=== PATIENT | male | born 1935 | race Caucasian/White ===

== ENCOUNTER 2019-10-25 08:49 | Outpatient (CLI) | payer MEDICARE, MEDICAID, SELFPAY ==
--- NOTE | 2019-10-25 08:59 | NM_ITS ---
WS: [id number] NUCLEAR MEDICINE WHOLE BODY BONE SCAN HISTORY: PROSTATE CANCER COMPARISON: 03/30/2018 TECHNIQUE: The patient was injected with 25.4 mCi of Technetium 99m HDP and serial whole-body scintig rodriguez have been performed with anterior and posterior images. Large [id number] imaging over the sku ll, cervical spine and pelvis. New since the prior examination is marked increased uptake involving the RIGHT hip joint. On the CT p erformed on the same day including the pelvis demonstrates narrowing of the RIGHT hip joint with subc hondral cystic changes and near bone upon bone. These findings are consistent with osteoarthritis. Th ere are no findings suggesting metastatic disease to the osseous skeleton. Mild degenerative changes at the knees, wrists and shoulders. Normal soft tissue uptake. Normal appearance of the kidneys. NM/NM bone scan whole body* [id number] IMPRESSION: 1. No osseous metastatic disease. 2. Moderate RIGHT hip joint osteoarthritis. New since 03/30/2018.
--- NOTE | 2019-10-25 09:00 | CT_ITS ---
WS: [id number] CT ABDOMEN AND PELVIS WITH CONTRAST HISTORY: PROSTATE CANCER TECHNIQUE: Imaging performed of the abdomen and pelvis with IV contrast. Single phase imaging of the abdomen. Coronal and sagittal reformats are submitted. All CT scans at [facility] use at least one of these dose optimization techniques: automated exposure control; mA and/or kV adjustment per patient size (includes targeted exams where dose is matched to clinical indication); or iterativ e reconstruction. IV CONTRAST: Visipaque 320; 95 mL IV. Oral contrast: Yes. DLP: 776.69 mGy.cm COMPARISON: 04/05/2018 and 01/04/2018 Lower thorax: Long-term stability of subcentimeter nodules in the medial RIGHT lower lobe. Heart is n ormal size. No hiatal hernia. Liver/biliary system: Numerous cysts throughout the liver ranging in size from 5 mm to 81 mm. No miller d mass. No bile duct dilatation. Portal vein is patent. Gallbladder: Normal. No gallstones or wall thickening. No pericholecystic fluid. Pancreas: Normal. Spleen: Normal. Adrenal glands: Normal. Right kidney: Mild renal atrophy and cortical thinning. Numerous cysts present in the RIGHT kidney wh ich have been previously described. Largest cyst measures 7.2 x 5.6 cm. Additional smaller cortical c ysts with no hydronephrosis. Left kidney: Numerous small cortical cysts. The largest with a maximum diameter of 1.8 cm. Aorta: Mild atherosclerosis with no aneurysm. Lymphadenopathy: None. Free fluid: None. GI tract: No GI tract obstruction. Tortuous colon with fecal retention. Numerous diverticula are pres ent throughout the descending and sigmoid colon without acute diverticulitis. The appendix is normal. Abdominal wall: Unremarkable abdominal wall. No hernia. Pelvis: Nondistended urinary bladder. No adenopathy or free fluid. Bones: L5 anterolisthesis by 8.4 mm due to bilateral pars defects. Severe degenerative disc disease a t L5-S1. No osteoblastic or osteolytic bone disease. Stable sclerotic focus in the proximal RIGHT fem ur is probably a bone island. CT/CT abdomen pelvis w con* [id number] IMPRESSION: 1. No evidence for metastatic disease to the osseous structures or adenopathy. 2. Stable hepatic and renal cysts. 3. Grade 1, L5 anterolisthesis and spondylolysis. 4. Tortuous colon with diverticulosis, no diverticulitis.
[2019-10-25] MEDS: iohexol 300 mg/mL 50 mL Btl IV (09:05)
[2019-10-25 10:30] LABS: Basophils # 0.1 10^3/uL (0.0-0.1); Basophils % 0.6 %; Eosinophils # 0.6 10^3/uL (0.0-0.8); Eosinophils % 4.4 %; Hematocrit 45.1 % (42.0-52.0); Hemoglobin 14.3 g/dL (11.7-16.6); Lymphocytes # 2.4 10^3/uL (0.8-4.8); Lymphocytes % 18.8 %; Mean Corpuscular HGB Conc 31.7 g/dL (30.0-36.0); Mean Corpuscular Hemoglobin 29.5 pg (28.0-34.0); Mean Platelet Volume 10.1 fL (7.4-10.4); Monocytes # 1.1 10^3/uL (0.2-0.9); Monocytes % 8.7 %; Neutrophils # 8.7 10^3/uL (1.8-7.7); Neutrophils % 67.1 %; Nucleated Red Blood Cells % 0 %; Platelet Count 315 10^3/cmm (130-400); Red Blood Count 4.85 10^6/uL (4.1-5.3); Red Cell Distribution Width 12.3 % (12.1-15.1); White Blood Count 12.9 10^3/uL (4.0-10.0)
[2019-10-25 10:50] LABS: Prostate Specific Antigen < 0.02 ng/mL (0-4)
[2019-10-25 11:01] LABS: Alanine Aminotransferase 16 U/L (0-41); Albumin Level 4.6 g/dL (3.5-5.2); Alkaline Phosphatase 126 IU/L (40-130); Anion Gap 15.2 (5-19); Aspartate Amino Transferase 24 U/L (0-40); Blood Urea Nitrogen 38 mg/dL (8-23); Calcium 10.5 mg/Dl (8.8-10.2); Carbon Dioxide 26 mmol/L (22-29); Chloride 103 mmol/L (98-107); Globulin 3.8 g/dL (1.3-4.6); Glucose 119 mg/dL (74-106); Potassium 5.2 mmol/L (3.5-5.1); Sodium 139 mmol/L (136-145); Total Bilirubin 0.3 mg/dL (0.15-1.2); Total Protein 8.4 g/dL (6.6-8.7)
[2019-10-25] MEDS: iodixanol 320 mg/mL 100mL Btl IV (11:08)
== END 2019-10-25 08:50 | disposition home or self-care (01) ==
LOC: RAD 08:50
PROVIDERS: Family Provider Family Medicine; PCP Family Medicine; Visit Provider Nurse Practitioner
DX: C61 Malignant neoplasm of prostate (principal); M16.11 Unilateral primary osteoarthritis, right hip; K76.89 Other specified diseases of liver; N28.1 Cyst of kidney, acquired; M43.06 Spondylolysis, lumbar region; K57.30 Diverticulosis of large intestine without perforation or abscess without bleeding
CPT/HCPCS: 74177; 78306; 80053; 84153; 85025; A9561

== ENCOUNTER 2019-10-30 07:37 | Outpatient (CLI) | payer MEDICARE, MEDICAID, SELFPAY ==
[2019-10-30] MEDS: lidocaine 1% INJ 20 mL 5 ML INJECTION (08:48)
[2019-10-30] MEDS: goserelin acetate 10.8 mg Implant IM (09:00)
--- NOTE | 2019-10-30 14:49 | ONC FU_ITS ---
Dr. Hickey follow up note Patient: Gabino Howell Unit #: [id number]: 1935 Dicatated By: Jerson Hickey M.D.Date of Visit:Oct 30, 2019 Onc Med Follow-up/Prog Note History of Present Illness: Mr. Howell is an 83-year-old gentleman who was noted to have a PSA of 8 in May 2017. He underwent observation. However by September 2017 it had gone up to 37. He had a TRUSP/biopsy on 09/23/2017. 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 At that time left external iliac lymph nodes measuring 2.4 x 2.9 x 3.7 cm, left retroperitoneal lymph nodes just inferior to the left renal artery measuring 1.5 cm and lymph nodes posterior to the descending thoracic aorta measuring 1.8 x 0.9 x 2.6 cm as well as several retrocrural lymph nodes measuring up to 1 cm were noted. There was no evidence of lytic or blastic bony destruction lesions at that time. He started androgen deprivation therapy Dr. Henao in December 2017. His PSA at that time a 61.8. He tolerated the androgen deprivation therapy With Zoladex/Casodex well and had a good response and that his PSA had dropped to 0.5. Repeat CT of the abdomen/pelvis on 04/05/2018 revealed resolution or significant shrinkage of the periaortic, retroperitoneal and pelvic lymphadenopathy. Bone scan in March 2018 also showed no evidence of bony metastatic disease. In March 2018, Mr. Howell was seen by Dr. Vaughn for urinary frequency hesitancy and nocturia ???3 with an AUA symptom score of 10. He did denied dysuria, hematuria weak stream or incontinence. And his bowels were regular at that time. It was elected that he remain on observation as he has stage IV disease and radiation therapy would be consider palliative. He is tolerating ADT with Zoladex/Casodex well otherwise. Follow-up CT scan of abdomen pelvis done on 10/25/2019 showed no evidence of metastatic disease in the bones or lymphadenopathy. Stable hepatic and renal cysts.. Bone scan done on 10/25/2019 showed no osseous metastatic disease. Moderate right hip joint osteoarthritis, new since 03/30/2018. Came for follow-up, denies any specific complaint except pain in the right hip more with the movements otherwise no lower extremity numbness or weakness. No hematuria or dysuria. No new bony pains. Hot flashes improves with discontinue Casodex. Otherwise tolerating Zoladex well . Medications: Aspir-81 1 (81 mg) Tablet, enteric coated Oral daily, Atorvastatin Calcium 1 (80 mg) Tablet Oral daily, Finasteride 1 (5 mg) Tablet Oral daily, Losartan Potassium 1 (100 mg) Tablet Oral daily, Metoprolol Tartrate 1 (25 mg) Tablet Oral daily, Norvasc 1 (10 mg) Tablet Oral daily, ProAir HFA 2 Puff(s) (of 108 (90 base) mcg/act) Aerosol, solution Inhalation q 4 hours PRN, Stool Softener 1 (100 mg) Tablet Oral daily, Tamsulosin HCl 1 (0.4 mg) Capsule Oral daily Allergies: No Known Allergies. Review of Systems: Constitutional - His energy level is poor. Appetite is good and weight is stable. No fever, chills, hot flashes, or night sweats, ENMT - No sinus congestion/drainage. No mouth sores. No sore throat or difficulty swallowing, Hematologic/Lymphatic - No abnormal bruising or bleeding, Respiratory - He has shortness of breath with activity. No cough. No pleuritic pain, Cardiovascular - No angina pain, Gastrointestinal - No nausea or vomiting. No heartburn or acid reflux. No diarrhea or constipation. No blood in the stool or black stools, Genitourinary (M) - No dysuria or hematuria. No urinary frequency. No urgency or incontinence, Musculoskeletal - Positive for right leg pain, Neurologic - No headache or dizziness. No numbness/paresthesias or other focal neurologic symptoms, Psychiatric - No anxiety or depression. No insomnia. Vital Signs: Performed on Oct 30, 2019 08:17 Height - 66.00 in Weight - 173.0 lbs (LOW) BSA - 1.88 sq.m BMI - 27.92 Temperature - 97.1 F (LOW) Pulse - 67 /min Respiration - 18 /min BP - 119/66 mm(hg) O2 Sat - 98 % Pain - 8 Performance Status: 1 - No physically strenuous activity, but ambulatory and able to carry out light or sedentary work (e.g. office work, light house work). (ECOG) Physical Examination: ENMT - r. No oral exudates, ulcers, masses, thrush or mucositis. Oropharynx clear. Tongue normal, Respiratory - Lungs are clear to auscultation without rhonchi or wheezing, Cardiovascular - Regular rate and rhythm of heart, Abdomen - Non-tender, non-distended, Good bowel sounds. No guarding or rebound tenderness. No pulsatile masses, Extremities - no edema. Lab/Imaging: Test performed on Oct 25, 2019 09:25 Glucose 119 mg/dL BUN 38 mg/dL Creatinine 1.7 mg/dL Cr Clearance (Est) 36.48 mL/min Sodium 139 mmol/L Potassium 5.2 mmol/L Chloride 103 mmol/L CO2 26 mmol/L Calcium 10.5 mg/dL Protein, Total 8.4 g/dL Albumin 4.6 g/dL Globulin 3.8 g/dL Bilirubin, Total 0.3 mg/dL Alkaline Phosphatase 126 IU/L AST (SGOT) 24 IU/L ALT (SGPT) 16 IU/L WBC 12.9 10^9/L RBC 4.85 10^12/L HGB 14.3 g/dL HCT 45.1 % MCV 93.0 fl MCH 29.5 pg MCHC 31.7 g/dL RDW 12.3 % Platelet Count 315 10^9/L MPV 10.1 fL Neutrophils (Gran) 8.7 10^9/L Lymphocytes 2.4 10^9/L Monocytes 1.1 10^9/L Eosinophils 0.6 10^9/L Basophils 0.1 10^9/L Neutrophil % 67.1 % Lymphocyte % 18.8 % Manual Lymphocytes 18.8 % Manual Monocytes 8.7 % Monocyte % 8.7 % Manual Eosinophils 4.4 % Basophils % 0.6 % Manual Basophils 0.6 % NRBCs 0.0 /100 WBC PSA 0.02 ng/mL Impression: Adenocarcinoma the prostate 3+3/3+4 Miranda per prostrate needle biopsy done on 09/23/2017. Initially no treatment was considered but his PSA continued to go up, to 61 then patient agreed for staging workup underwent CT scan of abdomen pelvis on 01/04/2018 which showed mild prostate gland enlargement, left external iliac lymphadenopathy 2.4 x 2.9 x 3.7 cm and left retroperitoneal lymph node 1.5 cm and other retroperitoneal lymph nodes size 1.8 x 2.6 x 0.9 cm and the left retrocrural lymph node several in number up to 1 cm no lytic or blastic bone lesion seen. Started on Zoladex 10.8 mg , first dose given in Dr. 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 Howell was seen by Dr. Vaughn for urinary frequency hesitancy and nocturia ???3 with an AUA symptom score of 10. He did denied dysuria, hematuria weak stream or incontinence. And his bowels were regular at that time. It was elected that he remain on observation as he has stage IV disease and radiation therapy would be consider palliative. Mr. Howell continues with androgen deprivation therapy with Casodex and Zoladex. There has been no evidence of disease progression. Plan: Discussed with patient regarding his labs white blood count 12.9 hemoglobin 14.3 crit 45.1 platelets 315,000 CMP within normal limits except creatinine 1.7 PSA 0.02 Clinically, patient is doing well with no evidence of disease progression, his follow-up CT scan of abdomen pelvis and bone scan showed no evidence of disease in the PSA is stable at 0.02. Tolerating ADT with Zoladex well and he is off Casodex. We will proceed with next dose of Zoladex today and return to clinic in 3 months with PSA and for Zoladex injection. Right hip pain, patient will discuss with his primary care regarding referred to orthopedics for evaluation as his bone scan showed moderate osteoarthritis involving the right hip. Signed By: Jerson Hickey M.D. <<Signature on File>>
== END 2019-10-30 07:38 | disposition home or self-care (01) ==
LOC: ONCMED 07:41
PROVIDERS: Family Provider Family Medicine; PCP Family Medicine; Visit Provider Internal Medicine Hematology & Oncology
DX: C61 Malignant neoplasm of prostate (principal); M16.11 Unilateral primary osteoarthritis, right hip; Z79.82 Long term (current) use of aspirin; G89.29 Other chronic pain; M54.9 Dorsalgia, unspecified; Z79.818 Long term (current) use of other agents affecting estrogen receptors and estrogen levels; Z79.899 Other long term (current) drug therapy
CPT/HCPCS: 96372; 96402; 99214; J2001; J9202

== ENCOUNTER → 2019-11-30 11:30 | Outpatient (BNVA) | payer MEDICARE, MEDICAID, SELFPAY | PROVIDERS: Family Provider Family Medicine; PCP Family Medicine; Referring Provider Family Medicine; Visit Provider Orthopaedic Surgery | DX: M16.11 Unilateral primary osteoarthritis, right hip (principal); M25.551 Pain in right hip | CPT/HCPCS: 73502 ==

== ENCOUNTER 2020-01-25 08:00 | Outpatient (CLI) | payer MEDICARE, MEDICAID, SELFPAY ==
[2020-01-25 11:28] LABS: Prostate Specific Antigen < 0.02 ng/mL (0-4)
== END 2020-01-25 09:00 | disposition home or self-care (01) ==
LOC: ONCMED 05-28 15:33
PROVIDERS: PCP Family Medicine; Visit Provider Internal Medicine Hematology & Oncology
DX: C61 Malignant neoplasm of prostate (principal)
CPT/HCPCS: 36415; 84153

== ENCOUNTER 2020-01-29 09:03 | Outpatient (CLI) | payer MEDICARE, MEDICAID, SELFPAY ==
[2020-01-29] MEDS: lidocaine 1% INJ 20 mL INJECTION (09:45)
[2020-01-29] MEDS: goserelin acetate 10.8 mg Implant IM (09:55)
--- NOTE | 2020-01-29 17:43 | ONC FU_ITS ---
Dr. Hickey follow up note Patient: Gabino Howell Unit #: [id number]: 1935 Dicatated By: Jerson Hickey M.D.Date of Visit:Jan 29, 2020 Onc Med Follow-up/Prog Note History of Present Illness: Mr. Howell is an 84-year-old gentleman who was noted to have a PSA of 8 in May 2017. He underwent observation. However by September 2017 it had gone up to 37. He had a TRUSP/biopsy on 09/23/2017. 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 At that time left external iliac lymph nodes measuring 2.4 x 2.9 x 3.7 cm, left retroperitoneal lymph nodes just inferior to the left renal artery measuring 1.5 cm and lymph nodes posterior to the descending thoracic aorta measuring 1.8 x 0.9 x 2.6 cm as well as several retrocrural lymph nodes measuring up to 1 cm were noted. There was no evidence of lytic or blastic bony destruction lesions at that time. He started androgen deprivation therapy Dr. Henao in December 2017. His PSA at that time a 61.8. He tolerated the androgen deprivation therapy With Zoladex/Casodex well and had a good response and that his PSA had dropped to 0.5. Repeat CT of the abdomen/pelvis on 04/05/2018 revealed resolution or significant shrinkage of the periaortic, retroperitoneal and pelvic lymphadenopathy. Bone scan in March 2018 also showed no evidence of bony metastatic disease. In March 2018, Mr. Howell was seen by Dr. Vaughn for urinary frequency hesitancy and nocturia ???3 with an AUA symptom score of 10. He did denied dysuria, hematuria weak stream or incontinence. And his bowels were regular at that time. It was elected that he remain on observation as he has stage IV disease and radiation therapy would be consider palliative. He is tolerating ADT with Zoladex/Casodex well otherwise. Follow-up CT scan of abdomen pelvis done on 10/25/2019 showed no evidence of metastatic disease in the bones or lymphadenopathy. Stable hepatic and renal cysts.. Bone scan done on 10/25/2019 showed no osseous metastatic disease. Moderate right hip joint osteoarthritis, new since 03/30/2018. Came for follow-up, denies any specific complaints, except chronic right hip pain due to severe osteoarthritis involving the right hip. No fever or chills, no nausea or vomiting, no diarrhea constipation, no night sweats. . Medications: Aspir-81 1 (81 mg) Tablet, enteric coated Oral daily, Atorvastatin Calcium 1 (80 mg) Tablet Oral daily, Finasteride 1 (5 mg) Tablet Oral daily, HYDROcodone-Acetaminophen 1 Tablet (of 10-325 mg) Oral q 8 hours PRN, Losartan Potassium 1 (100 mg) Tablet Oral daily, Metoprolol Tartrate 1 (25 mg) Tablet Oral daily, Norvasc 1 (10 mg) Tablet Oral daily, ProAir HFA 2 Puff(s) (of 108 (90 base) mcg/act) Aerosol, solution Inhalation q 4 hours PRN, Stool Softener 1 (100 mg) Tablet Oral daily, Tamsulosin HCl 1 (0.4 mg) Capsule Oral daily Allergies: No Known Allergies. Review of Systems: Constitutional - His energy level is poor. Appetite is good and weight is stable. No fever, chills, hot flashes, or night sweats, ENMT - No sinus congestion/drainage. No mouth sores. No sore throat or difficulty swallowing, Hematologic/Lymphatic - No abnormal bruising or bleeding, Respiratory - Denies shortness of breath. No cough. No pleuritic pain, Cardiovascular - No angina pain, Gastrointestinal - No nausea or vomiting. No heartburn or acid reflux. No diarrhea or constipation. No blood in the stool or black stools, Genitourinary (M) - No dysuria or hematuria. No urinary frequency. No urgency or incontinence, Musculoskeletal - Positive for hip pain, Neurologic - No headache or dizziness. No numbness/paresthesias or other focal neurologic symptoms, Psychiatric - No anxiety or depression. No insomnia. Vital Signs: Performed on Jan 29, 2020 09:12 Height - 66.00 in Weight - 173.6 lbs (HIGH) BSA - 1.88 sq.m BMI - 28.02 Temperature - 97.0 F (LOW) Pulse - 70 /min Respiration - 18 /min BP - 140/76 mm(hg) O2 Sat - 96 % Pain - 10 Performance Status: 1 - No physically strenuous activity, but ambulatory and able to carry out light or sedentary work (e.g. office work, light house work). (ECOG) Physical Examination: ENMT - no mouth sores, Respiratory - Lungs are clear to auscultation, Cardiovascular - Regular rate and rhythm of heart, Abdomen - bowel sounds present, nontender, Extremities - no visible edema. Lab/Imaging: Test performed on Oct 25, 2019 09:25 Glucose 119 mg/dL BUN 38 mg/dL Creatinine 1.7 mg/dL Cr Clearance (Est) 36.48 mL/min Sodium 139 mmol/L Potassium 5.2 mmol/L Chloride 103 mmol/L CO2 26 mmol/L Calcium 10.5 mg/dL Protein, Total 8.4 g/dL Albumin 4.6 g/dL Globulin 3.8 g/dL Bilirubin, Total 0.3 mg/dL Alkaline Phosphatase 126 IU/L AST (SGOT) 24 IU/L ALT (SGPT) 16 IU/L WBC 12.9 10^9/L RBC 4.85 10^12/L HGB 14.3 g/dL HCT 45.1 % MCV 93.0 fl MCH 29.5 pg MCHC 31.7 g/dL RDW 12.3 % Platelet Count 315 10^9/L MPV 10.1 fL Neutrophils (Gran) 8.7 10^9/L Lymphocytes 2.4 10^9/L Monocytes 1.1 10^9/L Eosinophils 0.6 10^9/L Basophils 0.1 10^9/L Neutrophil % 67.1 % Lymphocyte % 18.8 % Manual Lymphocytes 18.8 % Manual Monocytes 8.7 % Monocyte % 8.7 % Manual Eosinophils 4.4 % Basophils % 0.6 % Manual Basophils 0.6 % NRBCs 0.0 /100 WBC PSA 0.02 ng/mL Impression: Adenocarcinoma the prostate 3+3/3+4 Miranda per prostrate needle biopsy done on 09/23/2017. Initially no treatment was considered but his PSA continued to go up, to 61 then patient agreed for staging workup underwent CT scan of abdomen pelvis on 01/04/2018 which showed mild prostate gland enlargement, left external iliac lymphadenopathy 2.4 x 2.9 x 3.7 cm and left retroperitoneal lymph node 1.5 cm and other retroperitoneal lymph nodes size 1.8 x 2.6 x 0.9 cm and the left retrocrural lymph node several in number up to 1 cm no lytic or blastic bone lesion seen. Started on Zoladex 10.8 mg , first dose given in Dr. 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 Howell was seen by Dr. Vaughn for urinary frequency hesitancy and nocturia ???3 with an AUA symptom score of 10. He did denied dysuria, hematuria weak stream or incontinence. And his bowels were regular at that time. It was elected that he remain on observation as he has stage IV disease and radiation therapy would be consider palliative. Mr. Howell continues with androgen deprivation therapy with Casodex and Zoladex. There has been no evidence of disease progression. Plan: Discussed with patient regarding his labs PSA is less than 0.02 Clinically, patient doing well with no signs symptoms suggestive of recurrence of disease his follow-up lab shows PSA is less than 0.02 and is tolerating Zoladex well we'll proceed with next 3 monthly dose of Zoladex today and then return to clinic in 3 months with PSA and next dose of Zoladex. Signed By: Jerson Hickey M.D. <<Signature on File>>
== END 2020-01-29 09:04 | disposition home or self-care (01) ==
LOC: ONCMED 09:03
PROVIDERS: Family Provider Family Medicine; PCP Family Medicine; Visit Provider Internal Medicine Hematology & Oncology
DX: C61 Malignant neoplasm of prostate (principal); M16.11 Unilateral primary osteoarthritis, right hip; G89.29 Other chronic pain; M54.9 Dorsalgia, unspecified; G62.9 Polyneuropathy, unspecified; Z79.818 Long term (current) use of other agents affecting estrogen receptors and estrogen levels; Z79.899 Other long term (current) drug therapy; Z79.82 Long term (current) use of aspirin; Z79.891 Long term (current) use of opiate analgesic
CPT/HCPCS: 96372; 96402; 99214; J2001; J9202

== ENCOUNTER 2020-04-26 07:00 | Outpatient (CLI) | payer MEDICARE, MEDICAID, SELFPAY ==
[2020-04-26 08:19] LABS: Prostate Specific Antigen 0.007 ng/mL (0-4)
== END 2020-04-26 07:01 | disposition home or self-care (01) ==
LOC: ONCMED 07:02
PROVIDERS: PCP Family Medicine; Visit Provider Internal Medicine Hematology & Oncology
DX: C61 Malignant neoplasm of prostate (principal)
CPT/HCPCS: 84153

== ENCOUNTER 2020-04-29 14:45 | Outpatient (CLI) | payer MEDICARE, MEDICAID, SELFPAY ==
--- NOTE | 2020-04-29 15:16 | ONC FU_ITS ---
Dr. Hickey follow up note Patient: Gabino Howell Unit #: [id number]: 1935 Dicatated By: Jerson Hickey M.D.Date of Visit:Apr 29, 2020 Onc Med Follow-up/Prog Note History of Present Illness: Mr. Howlel is an 84-year-old gentleman who was noted to have a PSA of 8 in May 2017. He underwent observation. However by September 2017 it had gone up to 37. He had a TRUSP/biopsy on 09/23/2017. 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 At that time left external iliac lymph nodes measuring 2.4 x 2.9 x 3.7 cm, left retroperitoneal lymph nodes just inferior to the left renal artery measuring 1.5 cm and lymph nodes posterior to the descending thoracic aorta measuring 1.8 x 0.9 x 2.6 cm as well as several retrocrural lymph nodes measuring up to 1 cm were noted. There was no evidence of lytic or blastic bony destruction lesions at that time. He started androgen deprivation therapy Dr. Henao in December 2017. His PSA at that time a 61.8. He tolerated the androgen deprivation therapy With Zoladex/Casodex well and had a good response and that his PSA had dropped to 0.5. Repeat CT of the abdomen/pelvis on 04/05/2018 revealed resolution or significant shrinkage of the periaortic, retroperitoneal and pelvic lymphadenopathy. Bone scan in March 2018 also showed no evidence of bony metastatic disease. In March 2018, Mr. Howell was seen by Dr. Vaughn for urinary frequency hesitancy and nocturia ???3 with an AUA symptom score of 10. He did denied dysuria, hematuria weak stream or incontinence. And his bowels were regular at that time. It was elected that he remain on observation as he has stage IV disease and radiation therapy would be consider palliative. He is tolerating ADT with Zoladex/Casodex well otherwise. Follow-up CT scan of abdomen pelvis done on 10/25/2019 showed no evidence of metastatic disease in the bones or lymphadenopathy. Stable hepatic and renal cysts.. Bone scan done on 10/25/2019 showed no osseous metastatic disease. Moderate right hip joint osteoarthritis, new since 03/30/2018. Came for follow-up, denies any specific complaints, no fever chills, no nausea vomiting, no diarrhea constipation, no night sweats or hot flashes, no dysuria or hematuria, tolerating Zoladex well . Medications: Aspir-81 1 (81 mg) Tablet, enteric coated Oral daily, Atorvastatin Calcium 1 (80 mg) Tablet Oral daily, Finasteride 1 (5 mg) Tablet Oral daily, HYDROcodone-Acetaminophen 1 Tablet (of 10-325 mg) Oral q 8 hours PRN, Losartan Potassium 1 (100 mg) Tablet Oral daily, Metoprolol Tartrate 1 (25 mg) Tablet Oral daily, Norvasc 1 (10 mg) Tablet Oral daily, ProAir HFA 2 Puff(s) (of 108 (90 base) mcg/act) Aerosol, solution Inhalation q 4 hours PRN, Stool Softener 1 (100 mg) Tablet Oral daily, Tamsulosin HCl 1 (0.4 mg) Capsule Oral daily Allergies: No Known Allergies. Review of Systems: Review of Systems is not available for this patient. Vital Signs: Performed on Apr 29, 2020 14:55 Height - 66.00 in Weight - 171.0 lbs (LOW) BSA - 1.87 sq.m BMI - 27.60 Temperature - 97.1 F (LOW) Pulse - 61 /min Respiration - 22 /min BP - 119/65 mm(hg) O2 Sat - 98 % Pain - 0 Performance Status: 0 - Fully active, able to carry on all predisease activities without restrictions. (ECOG) Physical Examination: ENMT - No mouth sores, no thrush, Respiratory - Lungs are clear, Cardiovascular - Regular rate and rhythm of heart, Abdomen - Soft, bowel sounds present, Extremities - No visible edema. Lab/Imaging: Test performed on Jan 25, 2020 07:20 PSA < 0.02 ng/mL Impression: Adenocarcinoma the prostate 3+3/3+4 [place] per prostrate needle biopsy done on 09/23/2017. Initially no treatment was considered but his PSA continued to go up, to 61 then patient agreed for staging workup underwent CT scan of abdomen pelvis on 01/04/2018 which showed mild prostate gland enlargement, left external iliac lymphadenopathy 2.4 x 2.9 x 3.7 cm and left retroperitoneal lymph node 1.5 cm and other retroperitoneal lymph nodes size 1.8 x 2.6 x 0.9 cm and the left retrocrural lymph node several in number up to 1 cm no lytic or blastic bone lesion seen. Started on Zoladex 10.8 mg , first dose given in Dr. 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 Howell was seen by Dr. Vaughn for urinary frequency hesitancy and nocturia ???3 with an AUA symptom score of 10. He did denied dysuria, hematuria weak stream or incontinence. And his bowels were regular at that time. It was elected that he remain on observation as he has stage IV disease and radiation therapy would be consider palliative. Mr. Howell continues with androgen deprivation therapy with Casodex and Zoladex. There has been no evidence of disease progression. Plan: Discussed with patient regarding his labs PSA is 0.007 Clinically, patient is doing well with no signs symptom suggestive of disease progression/recurrence, tolerating 3 monthly Zoladex well with no significant side effects. We will proceed with next 3 monthly dose of Zoladex today and then return to clinic in 3 months with CBC CMP and PSA Signed By: Jerson Hickey M.D. <<Signature on File>>
[2020-04-29] MEDS: lidocaine 1% INJ 20 mL INJECTION (15:30)
[2020-04-29] MEDS: goserelin acetate 10.8 mg Implant IM (15:40)
== END 2020-04-29 14:46 | disposition home or self-care (01) ==
LOC: ONCMED 14:50
PROVIDERS: PCP Family Medicine; Visit Provider Internal Medicine Hematology & Oncology
DX: C61 Malignant neoplasm of prostate (principal); G89.29 Other chronic pain; M54.9 Dorsalgia, unspecified; G57.93 Unspecified mononeuropathy of bilateral lower limbs; Z79.818 Long term (current) use of other agents affecting estrogen receptors and estrogen levels; Z79.899 Other long term (current) drug therapy
CPT/HCPCS: 96372; 96402; 99214; J9202

== ENCOUNTER 2020-07-26 08:35 | Outpatient (CLI) | payer MEDICARE, MEDICAID, SELFPAY ==
[2020-07-26 08:53] LABS: Basophils # 0.1 10^3/uL (0.0-0.1); Basophils % 0.7 %; Eosinophils # 0.8 10^3/uL (0.0-0.8); Eosinophils % 7.1 %; Hematocrit 40.1 % (42.0-52.0); Hemoglobin 12.5 g/dL (11.7-16.6); Lymphocytes # 2.7 10^3/uL (0.8-4.8); Lymphocytes % 24.5 %; Mean Corpuscular HGB Conc 31.2 g/dL (30.0-36.0); Mean Corpuscular Hemoglobin 29.2 pg (28.0-34.0); Mean Corpuscular Volume 93.7 fL (80-94); Mean Platelet Volume 9.9 fL (7.4-10.4); Monocytes # 1.5 10^3/uL (0.2-0.9); Monocytes % 13.4 %; Neutrophils # 6.03 10^3/uL (1.8-7.7); Neutrophils % 53.9 %; Nucleated Red Blood Cells % 0 %; Platelet Count 263 10^3/cmm (130-400); Red Blood Count 4.28 10^6/uL (4.1-5.3); Red Cell Distribution Width 12.3 % (12.1-15.1); White Blood Count 11.2 10^3/uL (4.0-10.0)
[2020-07-26 09:34] LABS: Prostate Specific Antigen 0.008 ng/mL (0-4)
[2020-07-26 09:37] LABS: Alanine Aminotransferase 19 U/L (0-41); Albumin Level 4.3 g/dL (3.5-5.2); Alkaline Phosphatase 103 IU/L (40-130); Anion Gap 15.3 (5-19); Aspartate Amino Transferase 28 U/L (0-40); Blood Urea Nitrogen 29 mg/dL (8-23); Calcium 9.5 mg/dL (8.5-10.5); Carbon Dioxide 23 mmol/L (22-29); Chloride 103 mmol/L (98-107); Globulin 3.2 g/dL (1.3-4.6); Glucose 122 mg/dL (65-115); Osmolality Calculated 291 mOsm/kg (285-295); Potassium 4.3 mmol/L (3.5-5.1); Sodium 137 mmol/L (136-145); Total Bilirubin 0.4 mg/dL (0.15-1.2); Total Protein 7.5 g/dL (6.6-8.7)
== END 2020-07-26 08:36 | disposition home or self-care (01) ==
LOC: ONCMED 08:37
PROVIDERS: PCP Family Medicine; Visit Provider Internal Medicine Hematology & Oncology
DX: C61 Malignant neoplasm of prostate (principal)
CPT/HCPCS: 36415; 80053; 84153; 85025

== ENCOUNTER 2020-07-30 05:43 | Outpatient (CLI) | payer MEDICARE, MEDICAID, SELFPAY ==
[2020-07-30] MEDS: lidocaine 1% INJ 20 mL INJECTION (14:56)
[2020-07-30] MEDS: goserelin acetate 10.8 mg Implant IM (15:06)
--- NOTE | 2020-07-30 16:39 | ONC FU_ITS ---
[facility] Patient Note Patient: Gabino Howell Unit #: [id number]: 1935 Dictated By: Roxann NailsDate of Visit: Jul 30, 2020 Onc MED Follow-Up/Prog Note Chief Complaint: Prostate cancer History of Present Illness: Mr. Howell is an 85-year-old gentleman who was noted to have a PSA of 8 in May 2017. He underwent observation. However by September 2017 it had gone up to 37. He had a TRUSP/biopsy on 09/23/2017. Pathology revealed adenocarcinoma the prostate in 02/19 and biopsy cores, [place] score 3+4 involving 5%, 40% up to 80% of the specimen area he underwent CT of the abdomen and pelvis on 01/04/2018. At that time left external iliac lymph nodes measuring 2.4 x 2.9 x 3.7 cm, left retroperitoneal lymph nodes just inferior to the left renal artery measuring 1.5 cm and lymph nodes posterior to the descending thoracic aorta measuring 1.8 x 0.9 x 2.6 cm as well as several retrocrural lymph nodes measuring up to 1 cm were noted. There was no evidence of lytic or blastic bony destruction lesions at that time. He started androgen deprivation therapy Dr. Henao in December 2017. His PSA at that time a 61.8. He tolerated the androgen deprivation therapy With Zoladex/Casodex well and had a good response and that his PSA had dropped to 0.5. Repeat CT of the abdomen/pelvis on 04/05/2018 revealed resolution or significant shrinkage of the periaortic, retroperitoneal and pelvic lymphadenopathy. Bone scan in March 2018 also showed no evidence of bony metastatic disease. In March 2018, Mr. Howell was seen by Dr. Vaughn for urinary frequency hesitancy and nocturia ???3 with an AUA symptom score of 10. He did denied dysuria, hematuria weak stream or incontinence. And his bowels were regular at that time. It was elected that he remain on observation as he has stage IV disease and radiation therapy would be consider palliative. He is tolerating ADT with Zoladex/Casodex well otherwise. Follow-up CT scan of abdomen pelvis done on 10/25/2019 showed no evidence of metastatic disease in the bones or lymphadenopathy. Stable hepatic and renal cysts.. Bone scan done on 10/25/2019 showed no osseous metastatic disease. Moderate right hip joint osteoarthritis, new since 03/30/2018. He continues Zoladex every 3 months. Casodex was stopped in January 2019. Mr. Howell Is here today for follow-up. He is due for Zoladex today as well. He states overall he is doing well. He continues to be active around the house. He denies any fever or chills. He has had no known Covid exposure or symptoms or personal testing. He states he feels good. He denies any pain particulate bone pain. He states he does still have problems with his right knee because is fnec-ni-jael means it is no worse than normal. He denies bone pain anywhere else. He states his breathing is good. He denies any wheezing or cough. He denies any diarrhea or constipation. He has no complaints of hot flashes. He denies any lower extremity edema. His ECOG is 0. . Past Medical History: Arteriosclerotic heart disease Hyperlipidemia Hypertension Peripheral vascular disease Past Surgical History: Cardiac stent x2 Allergies: No Known Allergies. Medications: Aspir-81 1 (81 mg) Tablet, enteric coated Oral daily Atorvastatin Calcium 1 (80 mg) Tablet Oral daily Finasteride 1 (5 mg) Tablet Oral daily HYDROcodone-Acetaminophen 1 Tablet (of 10-325 mg) Oral q 8 hours PRN Losartan Potassium 1 (100 mg) Tablet Oral daily Metoprolol Tartrate 1 (25 mg) Tablet Oral daily Norvasc 1 (10 mg) Tablet Oral daily ProAir HFA 2 Puff(s) (of 108 (90 base) mcg/act) Aerosol, solution Inhalation q 4 hours PRN Stool Softener 1 (100 mg) Tablet Oral daily Tamsulosin HCl 1 (0.4 mg) Capsule Oral daily Zoladex 1 Subcutaneous q 90 days Family History: Mr. Howell's mother at age 68: type II diabetes, and myocardial infarction. Mr. Howell's father at age 70: congestive heart failure. Mr. Howell has 1 brother who is : myocardial infarctio. He has 1 sister who is : stomach cancer. Social History: Mr. Howell is and he is retired. Mr. Howell has never smoked. He has no history of drinking. Review Of Symptoms: Constitutional Denies fevers, chills, night sweats, excessive fatigue or weight loss. Allergic/Immunologic No reactions. Eyes Denies significant visual changes. No diplopia. No amaurosis. ENMT Denies changes in hearing, sore throat, mouth sores, difficulty or changes in swallowing ability, and/or sinus drainage. Endocrine No diabetes, thyroid disease or hormone replacement. Denies hot flashes or night sweats. Hematologic/Lymphatic Denies easy bruising or bleeding. The patient denies any tender or palpable lymph nodes. Respiratory Denies dyspnea on exertion, chest pain, cough or hemoptysis. Denies orthopnea. Cardiovascular Denies anginal chest pain, palpitations or orthopnea. Gastrointestinal Denies nausea, vomiting, diarrhea, GI bleeding, or constipation. Denies change in bowel habits and/or stool color, no heartburn or early satiety. Genitourinary (M) Denies hematuria, dysuria, increased frequency, urgency, hesitancy or incontinence. Musculoskeletal Denies new or worsening joint pain, swelling or redness. No decreased range of motion. Chronic knee and hip pain-unchanged. Integumentary Denies chronic rashes, inflammation, ulcerations or skin changes. Neurologic Denies headache, blurred vision, and no areas of focal weakness or numbness. Feet sensitive see above. Psychiatric Denies insomnia, depression, eliot or mood swings. Vital Signs: Performed on Jul 30, 2020 14:38 Height - 66.00 in Weight - 176.8 lbs (HIGH) BSA - 1.90 sq.m BMI - 28.54 Temperature - 97.2 F (LOW) Pulse - 60 /min Respiration - 18 /min BP - 143/73 mm(hg) (HIGH) O2 Sat - 97 % Pain - 8,0 - Fully active, able to carry on all predisease activities without restrictions. (ECOG) Physical Examination: Constitutional Alert, oriented, no acute distress. Skin pink, warm and dry. Head Normocephalic; atraumatic. Eyes Conjunctivae and sclerae are clear and without icterus. Pupils are reactive and equal. Neck Supple without masses or thyromegaly. No jugular venous distension. Hematologic/Lymphatic No petechiae or purpura. No tender or palpable lymph nodes in the cervical or supraclavicular areas. Respiratory Lungs are clear to auscultation without rhonchi or wheezing. Cardiovascular Regular rate and rhythm of heart with soft systolic murmur, but no clicks, gallops or rubs. Abdomen Non-tender, non-distended, no masses. No guarding or rebound tenderness. No pulsatile masses. Back/Spine Non-tender to palpation. Extremities No visible deformities, no cyanosis, clubbing or edema. Musculoskeletal No tenderness or swelling, normal range of motion without obvious weakness. Integumentary No rashes or lesions. Neurologic No sensory or motor deficits, normal cerebellar function, normal gait. Psychiatric Alert and oriented times three. Coherent speech. Verbalizes understanding of our discussions today. Laboratory:Test performed on Apr 26, 2020 07:23 PSA 0.007 ng/mL Impression: Adenocarcinoma the prostate 3+3/3+4 [place] per prostrate needle biopsy done on 09/23/2017. Initially no treatment was considered but his PSA continued to go up, to 61 then patient agreed for staging workup underwent CT scan of abdomen pelvis on 01/04/2018 which showed mild prostate gland enlargement, left external iliac lymphadenopathy 2.4 x 2.9 x 3.7 cm and left retroperitoneal lymph node 1.5 cm and other retroperitoneal lymph nodes size 1.8 x 2.6 x 0.9 cm and the left retrocrural lymph node several in number up to 1 cm no lytic or blastic bone lesion seen. Started on Zoladex 10.8 mg , first dose given in Dr. 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 Howell was seen by Dr. Vaughn for urinary frequency hesitancy and nocturia ???3 with an AUA symptom score of 10. He did denied dysuria, hematuria weak stream or incontinence. And his bowels were regular at that time. It was elected that he remain on observation as he has stage IV disease and radiation therapy would be consider palliative. Mr. Howell continues with androgen deprivation therapy with every 3 month Zoladex. There has been no evidence of disease progression. Plan: 1. Continue Zoladex 10.8 mg every 3 months. 2. Flu vac obtained 06/2020. He also started the shingles vaccine at that time and has another injection for it next month. 3. Labs from 07/26/2020 were reviewed in detail and discussed with Mr. Howell and a copy was given to him. WBC 11.2 hemoglobin 12.5, platelets 263,000 ANC is 6000 potassium 4.3 creatinine 1.2 which is improved from 1.7 in October LFTs are normal and PSA is 0.008. 4. We will plan to see Mr. Howell can back in 3 months with CBC CMP and PSA 5. Mr. Howell was instructed to contact us in the interim should questions or problems arise. Signed By: Roxann Nails-, AOCNP Jerson Hickey MD <<Signature on File>>
== END 2020-07-30 05:44 | disposition home or self-care (01) ==
LOC: ONCMED 05:48
PROVIDERS: PCP Family Medicine; Visit Provider Nurse Practitioner
DX: C61 Malignant neoplasm of prostate (principal); C77.8 Secondary and unspecified malignant neoplasm of lymph nodes of multiple regions; N40.1 Benign prostatic hyperplasia with lower urinary tract symptoms; R35.0 Frequency of micturition; R39.11 Hesitancy of micturition; R35.1 Nocturia; E78.5 Hyperlipidemia, unspecified; I10 Essential (primary) hypertension; I25.10 Atherosclerotic heart disease of native coronary artery without angina pectoris; I73.9 Peripheral vascular disease, unspecified; Z79.818 Long term (current) use of other agents affecting estrogen receptors and estrogen levels; Z79.899 Other long term (current) drug therapy
CPT/HCPCS: 96372; 96402; 99214; J9202

== ENCOUNTER 2020-11-04 10:51 | Outpatient (CLI) | payer MEDICARE, MEDICAID, SELFPAY ==
[2020-11-04 11:19] LABS: Basophils # 0.1 10^3/uL (0.0-0.1); Basophils % 0.8 %; Eosinophils # 0.6 10^3/uL (0.0-0.8); Eosinophils % 4.8 %; Hematocrit 40.9 % (42.0-52.0); Lymphocytes # 3.4 10^3/uL (0.8-4.8); Lymphocytes % 25.5 %; Mean Corpuscular HGB Conc 31.8 g/dL (30.0-36.0); Mean Corpuscular Volume 91.3 fL (80-94); Monocytes # 1.4 10^3/uL (0.2-0.9); Monocytes % 10.3 %; Neutrophils # 7.63 10^3/uL (1.8-7.7); Neutrophils % 57.6 %; Nucleated Red Blood Cells % 0 %; Platelet Count 309 10^3/cmm (130-400); Red Blood Count 4.48 10^6/uL (4.1-5.3); Red Cell Distribution Width 12.2 % (12.1-15.1); White Blood Count 13.2 10^3/uL (4.0-10.0)
[2020-11-04 11:52] LABS: Prostate Specific Antigen 0.017 ng/mL (0-4)
[2020-11-04 12:03] LABS: Alanine Aminotransferase 24 U/L (0-41); Albumin Level 4.4 g/dL (3.5-5.2); Alkaline Phosphatase 112 IU/L (40-130); Anion Gap 17.4 (5-19); Aspartate Amino Transferase 25 U/L (0-40); Blood Urea Nitrogen 35 mg/dL (8-23); Calcium 9.2 mg/dL (8.5-10.5); Carbon Dioxide 23 mmol/L (22-29); Chloride 104 mmol/L (98-107); Glucose 124 mg/dL (65-115); Osmolality Calculated 299 mOsm/kg (285-295); Potassium 4.4 mmol/L (3.5-5.1); Sodium 140 mmol/L (136-145); Total Bilirubin 0.3 mg/dL (0.15-1.2)
[2020-11-04 13:15] LABS: Globulin 3.4 g/dL (1.3-4.6); Total Protein 7.8 g/dL (6.6-8.7)
[2020-11-04] MEDS: lidocaine 1% INJ 20 mL INJECTION (13:15)
[2020-11-04] MEDS: goserelin acetate 10.8 mg Implant IM (13:15)
--- NOTE | 2020-11-04 13:51 | ONC FU_ITS ---
Dr. Hickey follow up note Patient: Gabino Howell Unit #: [id number]: 1935 Dicatated By: Jerson Hickey M.D.Date of Visit:Nov 04, 2020 Onc Med Follow-up/Prog Note History of Present Illness: Mr. Howell is an 85-year-old gentleman who was noted to have a PSA of 8 in May 2017. He underwent observation. However by September 2017 it had gone up to 37. He had a TRUSP/biopsy on 09/23/2017. 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 At that time left external iliac lymph nodes measuring 2.4 x 2.9 x 3.7 cm, left retroperitoneal lymph nodes just inferior to the left renal artery measuring 1.5 cm and lymph nodes posterior to the descending thoracic aorta measuring 1.8 x 0.9 x 2.6 cm as well as several retrocrural lymph nodes measuring up to 1 cm were noted. There was no evidence of lytic or blastic bony destruction lesions at that time. He started androgen deprivation therapy Dr. Henao in December 2017. His PSA at that time a 61.8. He tolerated the androgen deprivation therapy With Zoladex/Casodex well and had a good response and that his PSA had dropped to 0.5. Repeat CT of the abdomen/pelvis on 04/05/2018 revealed resolution or significant shrinkage of the periaortic, retroperitoneal and pelvic lymphadenopathy. Bone scan in March 2018 also showed no evidence of bony metastatic disease. In March 2018, Mr. Howell was seen by Dr. Vaughn for urinary frequency hesitancy and nocturia ???3 with an AUA symptom score of 10. He did denied dysuria, hematuria weak stream or incontinence. And his bowels were regular at that time. It was elected that he remain on observation as he has stage IV disease and radiation therapy would be consider palliative. He is tolerating ADT with Zoladex/Casodex well otherwise. Follow-up CT scan of abdomen pelvis done on 10/25/2019 showed no evidence of metastatic disease in the bones or lymphadenopathy. Stable hepatic and renal cysts.. Bone scan done on 10/25/2019 showed no osseous metastatic disease. Moderate right hip joint osteoarthritis, new since 03/30/2018. He continues Zoladex every 3 months. Casodex was stopped in January 2019. Came for follow-up, denies any specific complaints, no fever chills, no nausea or vomiting, no diarrhea or constipation, no new bony pains occasionally hot flashes otherwise tolerating 3 monthly Zoladex well . Medications: Aspir-81 1 (81 mg) Tablet, enteric coated Oral daily, Atorvastatin Calcium 1 (80 mg) Tablet Oral daily, Finasteride 1 (5 mg) Tablet Oral daily, HYDROcodone-Acetaminophen 1 Tablet (of 10-325 mg) Oral q 8 hours PRN, Losartan Potassium 1 (100 mg) Tablet Oral daily, Metoprolol Tartrate 1 (25 mg) Tablet Oral daily, Norvasc 1 (10 mg) Tablet Oral daily, ProAir HFA 2 Puff(s) (of 108 (90 base) mcg/act) Aerosol, solution Inhalation q 4 hours PRN, Stool Softener 1 (100 mg) Tablet Oral daily, Tamsulosin HCl 1 (0.4 mg) Capsule Oral daily, Zoladex 1 Subcutaneous q 90 days Allergies: No Known Allergies. Review of Systems: Review of Systems is not available for this patient. Vital Signs: Performed on Nov 04, 2020 12:35 Height - 66.00 in Weight - 132.4 lbs (LOW) BSA - 1.68 sq.m BMI - 21.37 Temperature - 96.4 F (LOW) Pulse - 73 /min Respiration - 18 /min BP - 148/79 mm(hg) (HIGH) O2 Sat - 97 % Pain - 0 Fatigue - 0 Performance Status: 1 - No physically strenuous activity, but ambulatory and able to carry out light or sedentary work (e.g. office work, light house work). (ECOG) Physical Examination: ENMT - No mouth sores, no thrush, no jaundice, Respiratory - Lungs are clear to auscultation, Cardiovascular - Regular rate and rhythm of heart, Abdomen - Soft, bowel sounds present, Extremities - No visible edema. Lab/Imaging: Test performed on Jul 26, 2020 08:44 Sodium 137 mmol/L Potassium 4.3 mmol/L Chloride 103 mmol/L CO2 23 mmol/L Anion Gap 15.3 BUN 29 mg/dL Creatinine 1.2 mg/dL Cr Clearance (Est) 51.05 mL/min Glucose 122 mg/dL Osmolality - Calculated 291 mOsm/kg Calcium 9.5 mg/dL Protein, Total 7.5 g/dL Albumin 4.3 g/dL Globulin 3.2 g/dL Bilirubin, Total 0.4 mg/dL ALT (SGPT) 19 U/L AST (SGOT) 28 U/L Alkaline Phosphatase 103 IU/L WBC 11.2 10 3/uL RBC 4.28 10 6/uL HGB 12.5 g/dL HCT 40.1 % MCV 93.7 fL MCH 29.2 pg MCHC 31.2 g/dL RDW 12.3 % Platelet Count 263 10 3/cmm MPV 9.9 fL Neutrophils 6.03 10 3/uL Lymphocytes 2.7 10 3/uL Monocytes 1.5 10 3/uL Eosinophils 0.8 10 3/uL Basophils 0.1 10 3/uL Neutrophil % 53.9 % Lymphocyte % 24.5 % Monocyte % 13.4 % Eosinophil % 7.1 % Basophils % 0.7 % NRBC % 0 % PSA 0.008 ng/mL Impression: Adenocarcinoma the prostate 3+3/3+4 Miranda per prostrate needle biopsy done on 09/23/2017. Initially no treatment was considered but his PSA continued to go up, to 61 then patient agreed for staging workup underwent CT scan of abdomen pelvis on 01/04/2018 which showed mild prostate gland enlargement, left external iliac lymphadenopathy 2.4 x 2.9 x 3.7 cm and left retroperitoneal lymph node 1.5 cm and other retroperitoneal lymph nodes size 1.8 x 2.6 x 0.9 cm and the left retrocrural lymph node several in number up to 1 cm no lytic or blastic bone lesion seen. Started on Zoladex 10.8 mg , first dose given in Dr. 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 Howell was seen by Dr. Vaughn for urinary frequency hesitancy and nocturia ???3 with an AUA symptom score of 10. He did denied dysuria, hematuria weak stream or incontinence. And his bowels were regular at that time. It was elected that he remain on observation as he has stage IV disease and radiation therapy would be consider palliative. Mr. Howell continues with androgen deprivation therapy with every 3 month Zoladex. There has been no evidence of disease progression. Plan: Discussed with patient regarding his labs from November 04, 2020 shows white blood count 13.2 hemoglobin 13 hematocrit 40.9 platelets 301,000 with a normal differentiation CMP within normal limits except glucose 124 PSA 0.017 compared to 0.008 on July 26, 2020 Clinically, patient is doing well with no new signs symptoms suggestive of disease progression but his follow-up labs shows PSA gone up to 0.017 compared to 0.008 previously,. We will proceed with his next 3 monthly dose of Zoladex today As far as mild isolated leukocytosis concern could be reactive, will continue to monitor and if there is a worsening, will consider work-up he will return to clinic in 3 months with CBC CMP PSA and testosterone level Signed By: Jerson Hickey M.D. <<Signature on File>>
== END 2020-11-04 10:52 | disposition home or self-care (01) ==
PROVIDERS: PCP Family Medicine; Visit Provider Internal Medicine Hematology & Oncology
DX: C61 Malignant neoplasm of prostate (principal); D72.829 Elevated white blood cell count, unspecified; Z79.818 Long term (current) use of other agents affecting estrogen receptors and estrogen levels
CPT/HCPCS: 36415; 80053; 84153; 85025; 96402; 99214; J9202

== ENCOUNTER 2021-02-05 11:24 | Outpatient (CLI) | payer MEDICARE, MEDICAID, SELFPAY ==
[2021-02-05 12:16] LABS: Basophils # 0.1 10^3/uL (0.0-0.1); Basophils % 0.8 %; Eosinophils # 0.7 10^3/uL (0.0-0.8); Hematocrit 40.9 % (42.0-52.0); Lymphocytes # 3.6 10^3/uL (0.8-4.8); Lymphocytes % 26.9 %; Mean Corpuscular HGB Conc 31.8 g/dL (30.0-36.0); Mean Corpuscular Volume 91.3 fL (80-94); Mean Platelet Volume 10.4 fL (7.4-10.4); Monocytes # 1.3 10^3/uL (0.2-0.9); Monocytes % 9.5 %; Neutrophils # 7.56 10^3/uL (1.8-7.7); Neutrophils % 57.1 %; Nucleated Red Blood Cells % 0 %; Platelet Count 276 10^3/cmm (130-400); Red Blood Count 4.48 10^6/uL (4.1-5.3); Red Cell Distribution Width 12.2 % (12.1-15.1); White Blood Count 13.3 10^3/uL (4.0-10.0)
[2021-02-05 12:46] LABS: Prostate Specific Antigen 0.034 ng/mL (0-4); Testosterone Total 2.5 ng/dL (193-740)
[2021-02-05 12:58] LABS: Alanine Aminotransferase 15 U/L (0-41); Albumin Level 4.4 g/dL (3.5-5.2); Alkaline Phosphatase 106 IU/L (40-130); Anion Gap 15.3 (5-19); Aspartate Amino Transferase 24 U/L (0-40); Blood Urea Nitrogen 21 mg/dL (8-23); Calcium 8.9 mg/dL (8.5-10.5); Carbon Dioxide 24 mmol/L (22-29); Chloride 105 mmol/L (98-107); Glucose 99 mg/dL (65-115); Osmolality Calculated 293 mOsm/kg (285-295); Potassium 4.3 mmol/L (3.5-5.1); Sodium 140 mmol/L (136-145); Total Bilirubin 0.4 mg/dL (0.15-1.2); Total Protein 7.4 g/dL (6.6-8.7)
--- NOTE | 2021-02-05 13:56 | ONC FU_ITS ---
Dr. Hickey follow up note Patient: Gabino Howell Unit #: [id number]: 1935 Dicatated By: Jerson Hickey M.D.Date of Visit:Feb 05, 2021 Onc Med Follow-up/Prog Note History of Present Illness: Mr. Howell is an 85-year-old gentleman who was noted to have a PSA of 8 in May 2017. He underwent observation. However by September 2017 it had gone up to 37. He had a TRUSP/biopsy on 09/23/2017. 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 At that time left external iliac lymph nodes measuring 2.4 x 2.9 x 3.7 cm, left retroperitoneal lymph nodes just inferior to the left renal artery measuring 1.5 cm and lymph nodes posterior to the descending thoracic aorta measuring 1.8 x 0.9 x 2.6 cm as well as several retrocrural lymph nodes measuring up to 1 cm were noted. There was no evidence of lytic or blastic bony destruction lesions at that time. He started androgen deprivation therapy Dr. Henao in December 2017. His PSA at that time a 61.8. He tolerated the androgen deprivation therapy With Zoladex/Casodex well and had a good response and that his PSA had dropped to 0.5. Repeat CT of the abdomen/pelvis on 04/05/2018 revealed resolution or significant shrinkage of the periaortic, retroperitoneal and pelvic lymphadenopathy. Bone scan in March 2018 also showed no evidence of bony metastatic disease. In March 2018, Mr. Howell was seen by Dr. Vaughn for urinary frequency hesitancy and nocturia ???3 with an AUA symptom score of 10. He did denied dysuria, hematuria weak stream or incontinence. And his bowels were regular at that time. It was elected that he remain on observation as he has stage IV disease and radiation therapy would be consider palliative. He is tolerating ADT with Zoladex/Casodex well otherwise. Follow-up CT scan of abdomen pelvis done on 10/25/2019 showed no evidence of metastatic disease in the bones or lymphadenopathy. Stable hepatic and renal cysts.. Bone scan done on 10/25/2019 showed no osseous metastatic disease. Moderate right hip joint osteoarthritis, new since 03/30/2018. He continues Zoladex every 3 months. Casodex was stopped in January 2019. Came for follow-up, denies any specific complaints, no fever chills, no nausea or vomiting, no diarrhea constipation, no new bony pains. No heart flashes, tolerating 3 monthly Zoladex well otherwise . Medications: Aspir-81 1 (81 mg) Tablet, enteric coated Oral daily, Atorvastatin Calcium 1 (80 mg) Tablet Oral daily, Finasteride 1 (5 mg) Tablet Oral daily, HYDROcodone-Acetaminophen 1 Tablet (of 10-325 mg) Oral q 8 hours PRN, Losartan Potassium 1 (100 mg) Tablet Oral daily, Metoprolol Tartrate 1 (25 mg) Tablet Oral daily, Norvasc 1 (10 mg) Tablet Oral daily, ProAir HFA 2 Puff(s) (of 108 (90 base) mcg/act) Aerosol, solution Inhalation q 4 hours PRN, Stool Softener 1 (100 mg) Tablet Oral daily, Tamsulosin HCl 1 (0.4 mg) Capsule Oral daily, Zoladex 1 Subcutaneous q 90 days Allergies: No Known Allergies. Review of Systems: Review of Systems is not available for this patient. Vital Signs: Performed on Feb 05, 2021 13:34 Height - 66.00 in Weight - 184.6 lbs (HIGH) BSA - 1.93 sq.m BMI - 29.80 Temperature - 97.1 F (LOW) Pulse - 68 /min Respiration - 18 /min BP - 120/62 mm(hg) O2 Sat - 96 % Pain - 0 Performance Status: 1 - No physically strenuous activity, but ambulatory and able to carry out light or sedentary work (e.g. office work, light house work). (ECOG) Physical Examination: ENMT - No mouth sores, no thrush, no jaundice, Respiratory - Lungs are clear to auscultation , Cardiovascular - Regular rate and rhythm of heart, Abdomen - Soft, bowel sounds present, Extremities - No visible edema. Lab/Imaging: Test performed on Nov 04, 2020 11:05 Sodium 140 mmol/L Potassium 4.4 mmol/L Chloride 104 mmol/L CO2 23 mmol/L Anion Gap 17.4 BUN 35 mg/dL Creatinine 1.2 mg/dL Cr Clearance (Est) 38.23 mL/min Glucose 124 mg/dL Osmolality - Calculated 299 mOsm/kg Calcium 9.2 mg/dL Protein, Total 7.8 g/dL Albumin 4.4 g/dL Globulin 3.4 g/dL Bilirubin, Total 0.3 mg/dL ALT (SGPT) 24 U/L AST (SGOT) 25 U/L Alkaline Phosphatase 112 IU/L WBC 13.2 10 3/uL RBC 4.48 10 6/uL HGB 13.0 g/dL HCT 40.9 % MCV 91.3 fL MCH 29.0 pg MCHC 31.8 g/dL RDW 12.2 % Platelet Count 309 10 3/cmm MPV 10.0 fL Neutrophils 7.63 10 3/uL Lymphocytes 3.4 10 3/uL Monocytes 1.4 10 3/uL Eosinophils 0.6 10 3/uL Basophils 0.1 10 3/uL Neutrophil % 57.6 % Lymphocyte % 25.5 % Monocyte % 10.3 % Eosinophil % 4.8 % Basophils % 0.8 % NRBC % 0 % PSA 0.017 ng/mL Impression: Adenocarcinoma the prostate 3+3/3+4 Miranda per prostrate needle biopsy done on 09/23/2017. Initially no treatment was considered but his PSA continued to go up, to 61 then patient agreed for staging workup underwent CT scan of abdomen pelvis on 01/04/2018 which showed mild prostate gland enlargement, left external iliac lymphadenopathy 2.4 x 2.9 x 3.7 cm and left retroperitoneal lymph node 1.5 cm and other retroperitoneal lymph nodes size 1.8 x 2.6 x 0.9 cm and the left retrocrural lymph node several in number up to 1 cm no lytic or blastic bone lesion seen. Started on Zoladex 10.8 mg , first dose given in Dr. 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 Howell was seen by Dr. Vaughn for urinary frequency hesitancy and nocturia ???3 with an AUA symptom score of 10. He did denied dysuria, hematuria weak stream or incontinence. And his bowels were regular at that time. It was elected that he remain on observation as he has stage IV disease and radiation therapy would be consider palliative. Mr. Howell continues with androgen deprivation therapy with every 3 month Zoladex. There has been no evidence of disease progression. Plan: Discussed with patient regarding his labs white blood count 13.2 hemoglobin 13 hematocrit 40.9 platelets 276,000 CMP within normal limits PSA 0.034 compared to 0.017 previously Clinically, patient is doing well with no new signs symptom suggestive of disease progression but his follow-up labs shows PSA mildly progressing, will continue with 3 monthly Zoladex today and then return to clinic in 3 months with CMP and PSA and testosterone Signed By: Jerson Hickey M.D. <<Signature on File>>
[2021-02-05] MEDS: lidocaine 1% INJ 20 mL INJECTION (14:08)
[2021-02-05] MEDS: goserelin acetate 10.8 mg Implant IM (14:16)
== END 2021-02-05 11:25 | disposition home or self-care (01) ==
LOC: ONCMED 11:26
PROVIDERS: PCP Family Medicine; Visit Provider Internal Medicine Hematology & Oncology
DX: C61 Malignant neoplasm of prostate (principal); R97.20 Elevated prostate specific antigen [PSA]; G89.29 Other chronic pain; M54.5 Low back pain; Z79.818 Long term (current) use of other agents affecting estrogen receptors and estrogen levels
CPT/HCPCS: 80053; 84153; 84403; 85025; 96372; 96402; 99215; J9202

== ENCOUNTER 2021-05-07 11:41 | Outpatient (CLI) | payer MEDICARE, MEDICAID, SELFPAY ==
[2021-05-07 11:58] LABS: Basophils # 0.1 10^3/uL (0.0-0.1); Basophils % 0.6 %; Eosinophils # 0.6 10^3/uL (0.0-0.8); Eosinophils % 4.4 %; Hematocrit 39.6 % (42.0-52.0); Hemoglobin 12.7 g/dL (11.7-16.6); Lymphocytes # 3.4 10^3/uL (0.8-4.8); Lymphocytes % 24.9 %; Mean Corpuscular HGB Conc 32.1 g/dL (30.0-36.0); Mean Corpuscular Hemoglobin 29.2 pg (28.0-34.0); Monocytes # 1.5 10^3/uL (0.2-0.9); Monocytes % 11.3 %; Neutrophils # 7.92 10^3/uL (1.8-7.7); Neutrophils % 58.4 %; Nucleated Red Blood Cells % 0 %; Platelet Count 252 10^3/cmm (130-400); Red Blood Count 4.35 10^6/uL (4.1-5.3); Red Cell Distribution Width 12.4 % (12.1-15.1); White Blood Count 13.6 10^3/uL (4.0-10.0)
[2021-05-07 12:38] LABS: Prostate Specific Antigen 0.066 ng/mL (0-4)
--- NOTE | 2021-05-07 14:28 | ONC FU_ITS ---
Dr. Hickey follow up note Patient: Gabino Howell Unit #: [id number]: 1935 Dicatated By: Jerson Hickey M.D.Date of Visit:May 07, 2021 Onc Med Follow-up/Prog Note History of Present Illness: Mr. Howell is an 85-year-old gentleman who was noted to have a PSA of 8 in May 2017. He underwent observation. However by September 2017 it had gone up to 37. He had a TRUSP/biopsy on 09/23/2017. 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 At that time left external iliac lymph nodes measuring 2.4 x 2.9 x 3.7 cm, left retroperitoneal lymph nodes just inferior to the left renal artery measuring 1.5 cm and lymph nodes posterior to the descending thoracic aorta measuring 1.8 x 0.9 x 2.6 cm as well as several retrocrural lymph nodes measuring up to 1 cm were noted. There was no evidence of lytic or blastic bony destruction lesions at that time. He started androgen deprivation therapy Dr. Henao in December 2017. His PSA at that time a 61.8. He tolerated the androgen deprivation therapy With Zoladex/Casodex well and had a good response and that his PSA had dropped to 0.5. Repeat CT of the abdomen/pelvis on 04/05/2018 revealed resolution or significant shrinkage of the periaortic, retroperitoneal and pelvic lymphadenopathy. Bone scan in March 2018 also showed no evidence of bony metastatic disease. In March 2018, Mr. Howell was seen by Dr. Vaughn for urinary frequency hesitancy and nocturia ???3 with an AUA symptom score of 10. He did denied dysuria, hematuria weak stream or incontinence. And his bowels were regular at that time. It was elected that he remain on observation as he has stage IV disease and radiation therapy would be consider palliative. He is tolerating ADT with Zoladex/Casodex well otherwise. Follow-up CT scan of abdomen pelvis done on 10/25/2019 showed no evidence of metastatic disease in the bones or lymphadenopathy. Stable hepatic and renal cysts.. Bone scan done on 10/25/2019 showed no osseous metastatic disease. Moderate right hip joint osteoarthritis, new since 03/30/2018. He continues Zoladex every 3 months. Casodex was stopped in January 2019. Came for follow-up, denies any specific complaints, no fever chills, no nausea or vomiting, no diarrhea constipation, no night sweats, no weight loss, no new bony pains, tolerating 3 monthly Zoladex well otherwise . Medications: Aspir-81 1 (81 mg) Tablet, enteric coated Oral daily, Atorvastatin Calcium 1 (80 mg) Tablet Oral daily, Finasteride 1 (5 mg) Tablet Oral daily, HYDROcodone-Acetaminophen 1 Tablet (of 10-325 mg) Oral q 8 hours PRN, Losartan Potassium 1 (100 mg) Tablet Oral daily, Metoprolol Tartrate 1 (25 mg) Tablet Oral daily, Norvasc 1 (10 mg) Tablet Oral daily, ProAir HFA 2 Puff(s) (of 108 (90 base) mcg/act) Aerosol, solution Inhalation q 4 hours PRN, Stool Softener 1 (100 mg) Tablet Oral daily, Tamsulosin HCl 1 (0.4 mg) Capsule Oral daily, Zoladex 1 Subcutaneous q 90 days Allergies: No Known Allergies. Review of Systems: Review of Systems is not available for this patient. Vital Signs: Performed on May 07, 2021 13:27 Height - 66.00 in Weight - 180.6 lbs (LOW) BSA - 1.92 sq.m BMI - 29.15 Temperature - 97.0 F (LOW) Pulse - 63 /min Respiration - 18 /min BP - 125/72 mm(hg) O2 Sat - 97 % Pain - 8 Performance Status: 0 - Fully active, able to carry on all predisease activities without restrictions. (ECOG) Physical Examination: ENMT - No mouth sores, no thrush, no jaundice no cervical lymphadenopathy, Respiratory - Lungs are clear to auscultation, Cardiovascular - Regular rate and rhythm of heart, Abdomen - Soft, bowel sounds present, Extremities - No visible edema. Lab/Imaging: Most recent lab results are not available for this patient. Impression: Adenocarcinoma the prostate 3+3/3+4 Homer per prostrate needle biopsy done on 09/23/2017. Initially no treatment was considered but his PSA continued to go up, to 61 then patient agreed for staging workup underwent CT scan of abdomen pelvis on 01/04/2018 which showed mild prostate gland enlargement, left external iliac lymphadenopathy 2.4 x 2.9 x 3.7 cm and left retroperitoneal lymph node 1.5 cm and other retroperitoneal lymph nodes size 1.8 x 2.6 x 0.9 cm and the left retrocrural lymph node several in number up to 1 cm no lytic or blastic bone lesion seen. Started on Zoladex 10.8 mg , first dose given in Dr. 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 Howell was seen by Dr. aVughn for urinary frequency hesitancy and nocturia ???3 with an AUA symptom score of 10. He did denied dysuria, hematuria weak stream or incontinence. And his bowels were regular at that time. It was elected that he remain on observation as he has stage IV disease and radiation therapy would be consider palliative. Mr. Howell continues with androgen deprivation therapy with every 3 month Zoladex. There has been no evidence of disease progression. Plan: Discussed with patient regarding his labs white blood count 13.6 hemoglobin 12.7 hematocrit 39.6 platelets 252,000 ANC 7920 PSA 0.066 compared to 0.034 Clinically, patient is doing well with no new signs symptoms suggestive of disease progression, his PSA is gradually going up but still subzero and patient has no new signs symptoms, will proceed with his next 3 monthly dose of Zoladex and have him come back in 3 months with PSA if it continues to go up may consider CT scan of abdomen pelvis and bone scan Patient also has persistent leukocytosis, he denies any smoking denies any steroid use denies any recurrent fever or infection, etiology unclear could be underlying myeloproliferative disorder, will consider whole blood flow cytometry Return to clinic in 3 months with a PSA Signed By: Jerson Hickey M.D. <<Signature on File>>
[2021-05-07] MEDS: lidocaine 1% INJ 20 mL INJECTION (14:34)
[2021-05-07 14:42] LABS: Alanine Aminotransferase 12 U/L (0-41); Alkaline Phosphatase 96 IU/L (40-130); Anion Gap 17.4 (5-19); Aspartate Amino Transferase 20 U/L (0-40); Blood Urea Nitrogen 22 mg/dL (8-23); Calcium 8.6 mg/dL (8.5-10.5); Carbon Dioxide 20 mmol/L (22-29); Chloride 106 mmol/L (98-107); Globulin 3.3 g/dL (1.3-4.6); Glucose 104 mg/dL (65-115); Osmolality Calculated 292 mOsm/kg (285-295); Potassium 4.4 mmol/L (3.5-5.1); Sodium 139 mmol/L (136-145); Total Bilirubin 0.3 mg/dL (0.15-1.2); Total Protein 7.3 g/dL (6.6-8.7)
[2021-05-07] MEDS: goserelin acetate 10.8 mg Implant SUBCUT (14:44)
[2021-05-07 15:04] LABS: Testosterone Total 2.5 ng/dL (193-740)
[2021-05-26 10:27] LABS: Miscellaneous Test See Scanned Lab Rpt
== END 2021-05-07 11:42 | disposition home or self-care (01) ==
LOC: ONCMED 11:44
PROVIDERS: PCP Family Medicine; Visit Provider Internal Medicine Hematology & Oncology
DX: Z51.11 Encounter for antineoplastic chemotherapy (principal); C61 Malignant neoplasm of prostate; R97.20 Elevated prostate specific antigen [PSA]; R59.0 Localized enlarged lymph nodes; M54.5 Low back pain; G89.29 Other chronic pain; G62.9 Polyneuropathy, unspecified; R35.0 Frequency of micturition; R35.1 Nocturia; Z79.899 Other long term (current) drug therapy
CPT/HCPCS: 36415; 80053; 84153; 84403; 85025; 88184; 88185; 96372; 96402; 99215; J9202

== ENCOUNTER 2021-08-15 14:53 | Emergency (ER) | payer MEDICARE, MEDICAID, SELFPAY ==
[2021-08-15 15:53] VITALS: BP 115/74; PULSE 72; RESP 18; TEMP 36.9; O2SAT 94; BMI 29.0
--- NOTE | 2021-08-15 16:01 | XR_ITS ---
WS: [id number] RIGHT RIBS, MULTIPLE VIEWS WITH PA CHEST HISTORY: fall with right rib pain COMPARISON: 05/02/2018 Lungs and mediastinum: Low lung volumes with atelectasis at the bases to the central RIGHT lung. No p neumothorax. Ribs: Nondisplaced anterolateral RIGHT fourth and sixth rib fractures. No definite fracture in the fi fth rib. Anterior eighth and ninth ribs are also fractured. XR/XR ribs RT mn 3V w CXR1V [id number] IMPRESSION: Multilevel nondisplaced anterior RIGHT rib fractures are identified. The fourth , sixth, eighth and ninth ribs are fractured. There may be additional fractures which are not evident.
--- NOTE | 2021-08-15 16:01 | W.ED.FALL ---
HPI - Fall General: Chief Complaint: Fall Stated Complaint: TRIPPED OVER DOG 2 DAYS AGO:RIB PAIN,PAIN W/BREATH Time Seen by Provider: 08/15/21 16:01 History of Present Illness: HPI Narrative: Patient is an 86-year-old male who comes to the ED with right rib pain after fall. Patient states fall occurred 2 days ago. He tripped over her dogs by accident and landed on his right side. Denies any head trauma or loss of consciousness. His main complaint is right rib pain that worsens whenever he takes a deep breath. Patient currently has a prescription for hydrocodone and he took a dose of hydrocodone this morning. Denies any other injury. Associated symptoms-after fall: Denies abdominal pain, chest pain, headache(s), hematuria or neck pain Review of Systems Const: Denies: fever(s), chills or fatigue Eyes: Denies: change in vision or eye discomfort ENMT: Denies: throat pain, odynophagia, nasal discharge or nasal congestion Card: Denies: chest pain, palpitations, edema, swelling of feet/ankles, dyspnea on exertion or orthopnea Resp: Reports: pain on inspiration (Right rib pain); Denies: dyspnea, productive cough or non-productive cough GI: Denies: abdominal pain, nausea, vomiting, diarrhea, constipation or hematochezia : Denies: flank pain, difficulty urinating, dysuria or hematuria Musc: Denies: neck pain, back pain or extremity swelling Skin/Breast: Denies: rash or new lesions Neuro: Denies: headache(s), numbness in extremities or weakness in extremities PFS ED PFSH: Medical History ASHD (arteriosclerotic heart disease) Bradycardia HTN (hypertension) Hyperlipidemia Surgical History S/P PTCA (percutaneous transluminal coronary angioplasty) Family History Mother , Age 68 DM Diabetes Brother Heart disease Father , Age 70 CHF CHF (congestive heart failure) Social History Smoking and tobacco status: never smoked Alcohol intake: never History of recent travel: No Physical Exam Const: COMMON NORMALS: no acute distress, patient oriented x3 and alert GENERAL APPEARANCE: cooperative and comfortable HENMT: COMMON NORMALS: normocephalic HEAD & SCALP: normocephalic MOUTH: Normal oral and palatal mucosa present THROAT: posterior oropharynx normal and uvula midline Neck/C-Spine: COMMON NORMALS: supple GENERAL: Yes normal visual inspection Chest: CHEST: Yes tenderness rib right anterior-axillary line involving the 7th rib, involving the 8th rib and involving the 9th rib Resp: COMMON NORMALS: normal respiratory effort, No retractions, No use of accessory muscles and clear to auscultation bilaterally EFFORT & INSPECTION: Yes able to speak in complete sentences, No tachypneic, No respiratory distress and No labored AUSCULTATION: clear to auscultation bilaterally Cardio: COMMON NORMALS: regular rate, regular rhythm, S1 normal heart sound present, S2 normal heart sound present, No gallops present (Cardio), No clicks present (Cardio), No murmurs present (Cardio) and Peripheral pulses 2+ throughout RATE: regular rate RHYTHM: regular rhythm HEART SOUNDS: S1 normal heart sound present and S2 normal heart sound present PERIPHERAL PULSES: Peripheral pulses 2+ throughout GI: COMMON NORMALS: Normal to inspection, nondistended, normoactive bowel sounds present, Soft to palpation, non-tender and no masses PALPATION: Yes Soft to palpation : COMMON NORMALS: Yes no CVA tenderness BLADDER/KIDNEY EXAM: Yes no CVA tenderness Back/Pelvis: COMMON NORMALS: no CVA tenderness Extremity: COMMON NORMALS: normal to inspection Neuro: COMMON NORMALS: patient oriented x3 and moves all extremities SENSORIUM/ORIENTATION: Yes alert Skin: GENERAL SKIN EXAM: dry skin Course Vital Signs: Vital signs: Vital Signs Temperature 98.5 F 08/15/21 16:10 Pulse Rate 72 08/15/21 16:10 Respiratory Rate 18 08/15/21 16:10 Blood Pressure 115/74 08/15/21 16:10 Pulse Oximetry 94 08/15/21 16:10 MDM - Fall MDM Narrative: Medical decision making narrative: Patient is an 86-year-old male comes to the ED with right rib pain after fall. Denies any head trauma or loss of consciousness. He is not on any blood thinners. His main complaint is right rib pain that hurts when he takes a deep breath. Says when he sitting at rest his pain is not that bad and manageable. Vitals are stable. Exam shows some right rib tenderness, but patient appears in no acute respiratory distress and has clear bilateral lung sounds throughout all lung recio upon auscultation. X-ray of right ribs showed mild level nondisplaced anterior right rib fractures at ribs 4, 6, 8 and 9. Discussed patient case with Dr. Navarrete and told him that patient is stable and his pain is manageable vitals are stable. He agreed with discharge of patient but to make sure they have strict return to ED precautions and good follow-up. Patient was diagnosed with multiple right rib fractures and discharged home with a an incentive spirometer and he was instructed on how to use it. Patient already has a previous prescription for hydrocodone's at home that he will take for pain. Told patient to have follow-up with PCP in 3 to 4 days and he has an appointment set up with his PCP already on August 19. I stressed that patient has strict return to ED precautions and told him if he has any shortness of breath, cough or pain becomes unmanageable he can return to the ED for reevaluation. Patient understood and agreed with plan. Imaging Data^: CXR: Attestation: I personally reviewed and interpreted this imaging study as follows: Radiologist's impression: [address] [address] XRay Report Signed Patient: Gabino Howell Unit #: [id number] : 1935 Age/Sex: 86 / M ADM Date: 08/15/21 Loc: ER Room/Bed: Attending Dr: Ordering Provider/Ordering MD: Stalin Nava Date of Service: 08/15/21 Procedure(s): XR ribs RT mn 3V w CXR1V 56931 Accession Number(s): [id number] Report Number: [id number] WS: [id number] RIGHT RIBS, MULTIPLE VIEWS WITH PA CHEST HISTORY: fall with right rib pain COMPARISON: 05/02/2018 Lungs and mediastinum: Low lung volumes with atelectasis at the bases to the central RIGHT lung. No pneumothorax. Ribs: Nondisplaced anterolateral RIGHT fourth and sixth rib fractures. No definite fracture in the fifth rib. Anterior eighth and ninth ribs are also fractured. XR/XR ribs RT mn 3V w CXR1V [id number] IMPRESSION: Multilevel nondisplaced anterior RIGHT rib fractures are identified. The fourth, sixth, eighth and ninth ribs are fractured. There may be additional fractures which are not evident. Dictated By: Andressa Yanez DO Signed By: Andressa Yanez DO Signed Date/Time: 08/15/21 1630 DD/ 1627 Discharge Plan Discharge Patient Disposition: Home Clinical Impression: Multiple fractures of ribs of right side Qualifiers: Encounter type: initial encounter Fracture type: closed Qualified Code(s): S22.41XA - Multiple fractures of ribs, right side, initial encounter for closed fracture Condition: Stable Prescriptions: No Action hydrocodone-acetaminophen 5-325 mg tablet 1 tab PO Q8H PRNRF: 0 albuterol sulfate [ProAir HFA] 90 mcg/actuation HFA aerosol inhaler 2 puff inhalation Q6H PRNRF: 0 finasteride 5 mg tablet 5 mg PO DAILY RF: 0 tamsulosin 0.4 mg capsule 0.4 mg PO DAILY RF: 0 amlodipine 10 mg tablet 10 mg PO DAILY RF: 0 metoprolol tartrate 25 mg tablet 25 mg PO DAILY RF: 0 losartan 100 mg tablet 100 mg PO DAILY RF: 0 multivitamin Tablet 1 tab PO DAILY RF: 0 atorvastatin 80 mg tablet 80 mg PO DAILY RF: 0 docusate sodium [Stool Softener] 100 mg capsule 100 mg PO BID RF: 0 aspirin [Adult Low Dose Aspirin] 81 mg tablet,delayed release (DR/EC) 81 mg PO DAILY RF: 0 nitroglycerin [Nitrostat] 0.4 mg tablet, sublingual 0.4 mg SUBLINGUAL Q5M PRN (Reason: chest pain) 30 Days Qty: 25 RF: 6 Discharge Orders: Discharge ED (Routine); Ordered 08/15/21 Ordered By: Stalin Nava Referrals: Chepe Hope MD [Primary Care Provider] - Discharge Diet: Regular Discharge Activity: Limit activity as instructed Patient Instructions: How to Use an Incentive Spirometer (ED), Rib Fracture (ED), Opioid Safety Activity Restrictions/Additional Instructions: Follow-up with medical provider as directed in the next 3 to 4 days to be reevaluated. Continue taking your previously prescribed hydrocodone for pain. Apply cold pack on sore spot ribs to help with symptoms. Limit activity and lifting to allow for healing. Continue taking all home medications as prescribed. Use the incentive spirometer as directed to help with your lungs and breathing. Return to the ER or your medical provider if condition worsens or you develop any shortness of breath. Please read and understand discharge instructions. Thank you for choosing [facility] for your healthcare needs today. Please realize this is an emergency room and that we are providing you with a medical screening exam and this may not be complete and all inclusive of all the testing and or work up that you may need to determine your ailment or severity of your illness. It is very important that you follow up as instructed or that you return to the Emergency Department should you have concerns or if your condition changes or worsens in any way. Coding Level of Care Code ED Instructional Support Technician for Kosta Fwd Exam Comprehensive
[2021-08-15 16:10] VITALS: BP 115/74; PULSE 72; RESP 18; TEMP 36.9; O2SAT 94
[2021-08-15] MEDS: HYDROcodone-acetaminophen 5-325 mg Tablet 1 TAB PO (16:31)
--- NOTE | 2021-08-15 17:20 | PC.NURSE ---
PATIENT GIVEN INCENTIVE SPIROMETER. PATIENT EDUCATION GIVEN.
== END 2021-08-15 17:15 | disposition home or self-care (01) ==
PROVIDERS: Emergency Provider Physician Assistant; PCP Family Medicine
DX: S22.41XA Multiple fractures of ribs, right side, initial encounter for closed fracture (principal); Z79.82 Long term (current) use of aspirin; I10 Essential (primary) hypertension; E78.5 Hyperlipidemia, unspecified; W01.0XXA Fall on same level from slipping, tripping and stumbling without subsequent striking against object, initial encounter
CPT/HCPCS: 71101; 99283

== ENCOUNTER 2021-08-19 12:11 | Outpatient (CLI) | payer MEDICARE, MEDICAID, SELFPAY ==
[2021-08-19 14:21] LABS: Basophils # 0.1 10^3/uL (0.0-0.1); Basophils % 0.6 %; Eosinophils # 0.3 10^3/uL (0.0-0.8); Eosinophils % 2.3 %; Hematocrit 40.9 % (42.0-52.0); Hemoglobin 13.3 g/dL (11.7-16.6); Lymphocytes # 2.8 10^3/uL (0.8-4.8); Lymphocytes % 19.5 %; Mean Corpuscular HGB Conc 32.5 g/dL (30.0-36.0); Mean Corpuscular Hemoglobin 29.6 pg (28.0-34.0); Mean Corpuscular Volume 91.1 fl (80-94); Mean Platelet Volume 9.8 fL (7.4-10.4); Monocytes # 1.5 10^3/uL (0.2-0.9); Monocytes % 10.4 %; Neutrophils # 9.48 10^3/uL (1.8-7.7); Neutrophils % 66.6 %; Nucleated Red Blood Cells % 0 %; Platelet Count 326 10^3/cmm (130-400); Red Blood Count 4.49 10^6/uL (4.1-5.3); Red Cell Distribution Width 12.4 % (12.1-15.1); White Blood Count 14.2 10^3/uL (4.0-10.0)
[2021-08-19 14:59] LABS: Prostate Specific Antigen 0.149 ng/mL (0-4)
[2021-08-19 15:10] LABS: Alanine Aminotransferase 12 U/L (0-41); Albumin Level 4.3 g/dL (3.5-5.2); Alkaline Phosphatase 102 IU/L (40-130); Anion Gap 19.1 (5-19); Aspartate Amino Transferase 19 U/L (0-40); Blood Urea Nitrogen 24 mg/dL (8-23); Calcium 9.3 mg/dL (8.5-10.5); Carbon Dioxide 21 mmol/L (22-29); Chloride 100 mmol/L (98-107); Globulin 3.6 g/dL (1.3-4.6); Glucose 105 mg/dL (65-115); Osmolality Calculated 286 mOsm/kg (285-295); Potassium 4.1 mmol/L (3.5-5.1); Sodium 136 mmol/L (136-145); Total Bilirubin 0.4 mg/dL (0.15-1.2); Total Protein 7.9 g/dL (6.6-8.7)
[2021-08-19] MEDS: lidocaine 1% INJ 20 mL INJECTION (15:34)
[2021-08-19] MEDS: goserelin acetate 10.8 mg Implant SUBCUT (15:46)
--- NOTE | 2021-08-19 16:56 | ONC FU_ITS ---
Dr. Hickey follow up note Patient: Gabino Howell Unit #: [id number]: 1935 Dicatated By: Jerson Hickey M.D.Date of Visit:Aug 19, 2021 Onc Med Follow-up/Prog Note History of Present Illness: Mr. Howell is an 86-year-old gentleman who was noted to have a PSA of 8 in May 2017. He underwent observation. However by September 2017 it had gone up to 37. He had a TRUSP/biopsy on 09/23/2017. 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 At that time left external iliac lymph nodes measuring 2.4 x 2.9 x 3.7 cm, left retroperitoneal lymph nodes just inferior to the left renal artery measuring 1.5 cm and lymph nodes posterior to the descending thoracic aorta measuring 1.8 x 0.9 x 2.6 cm as well as several retrocrural lymph nodes measuring up to 1 cm were noted. There was no evidence of lytic or blastic bony destruction lesions at that time. He started androgen deprivation therapy Dr. Henao in December 2017. His PSA at that time a 61.8. He tolerated the androgen deprivation therapy With Zoladex/Casodex well and had a good response and that his PSA had dropped to 0.5. Repeat CT of the abdomen/pelvis on 04/05/2018 revealed resolution or significant shrinkage of the periaortic, retroperitoneal and pelvic lymphadenopathy. Bone scan in March 2018 also showed no evidence of bony metastatic disease. In March 2018, Mr. Howell was seen by Dr. Vaughn for urinary frequency hesitancy and nocturia ???3 with an AUA symptom score of 10. He did denied dysuria, hematuria weak stream or incontinence. And his bowels were regular at that time. It was elected that he remain on observation as he has stage IV disease and radiation therapy would be consider palliative. He is tolerating ADT with Zoladex/Casodex well otherwise. Follow-up CT scan of abdomen pelvis done on 10/25/2019 showed no evidence of metastatic disease in the bones or lymphadenopathy. Stable hepatic and renal cysts.. Bone scan done on 10/25/2019 showed no osseous metastatic disease. Moderate right hip joint osteoarthritis, new since 03/30/2018. He continues Zoladex every 3 months. Casodex was stopped in January 2019. Came for follow-up, denies any specific complaint except pain in the right ribs as per patient, his dog pulled him and flipped him over causing right chest wall injury, for which he went to [facility] where chest x-ray shows nondisplaced fracture. Otherwise no fever chills, no nausea or vomiting, no diarrhea or constipation, no dysuria or hematuria, no new bony pains, no weight loss, appetite is good, tolerating 3 monthly Zoladex well . Medications: Aspir-81 1 (81 mg) Tablet, enteric coated Oral daily, Atorvastatin Calcium 1 (80 mg) Tablet Oral daily, Finasteride 1 (5 mg) Tablet Oral daily, HYDROcodone-Acetaminophen 1 Tablet (of 10-325 mg) Oral q 8 hours PRN, Losartan Potassium 1 (100 mg) Tablet Oral daily, Metoprolol Tartrate 1 (25 mg) Tablet Oral daily, Norvasc 1 (10 mg) Tablet Oral daily, ProAir HFA 2 Puff(s) (of 108 (90 base) mcg/act) Aerosol, solution Inhalation q 4 hours PRN, Stool Softener 1 (100 mg) Tablet Oral daily, Tamsulosin HCl 1 (0.4 mg) Capsule Oral daily, Zoladex 1 Subcutaneous q 90 days Allergies: No Known Allergies. Review of Systems: Review of Systems is not available for this patient. Vital Signs: Performed on Aug 19, 2021 16:12 Height - 66.00 in Weight - 175 lbs (LOW) BSA - 1.89 sq.m BMI - 28.25 Temperature - 97.8 F (LOW) Pulse - 67 /min Respiration - 18 /min BP - 133/74 mm(hg) O2 Sat - 95 % (LOW) Pain - 8 Fatigue - 0 Performance Status: 1 - No physically strenuous activity, but ambulatory and able to carry out light or sedentary work (e.g. office work, light house work). (ECOG) Physical Examination: ENMT - No mouth sores, no thrush, no jaundice, Respiratory - Lungs are clear to auscultation, Cardiovascular - Regular rate and rhythm of heart, Abdomen - Soft, bowel sounds present, Extremities - No visible edema. Lab/Imaging: Test performed on Aug 19, 2021 13:45 WBC 14.2 10^9/L RBC 4.49 10^12/L HGB 13.3 g/dL HCT 40.9 % MCV 91.1 fl MCH 29.6 pg MCHC 32.5 g/dL RDW 12.4 % Platelet Count 326 10^9/L MPV 9.8 fL Neutrophils (Gran) 9.48 10^9/L Lymphocytes 2.769 10^9/L Monocytes 1.4768 10^9/L Eosinophils 0.3266 10^9/L Basophils 0.0852 10^9/L NRBCs 0.0 /100 WBC Impression: Adenocarcinoma the prostate 3+3/3+4 Miranda per prostrate needle biopsy done on 09/23/2017. Initially no treatment was considered but his PSA continued to go up, to 61 then patient agreed for staging workup underwent CT scan of abdomen pelvis on 01/04/2018 which showed mild prostate gland enlargement, left external iliac lymphadenopathy 2.4 x 2.9 x 3.7 cm and left retroperitoneal lymph node 1.5 cm and other retroperitoneal lymph nodes size 1.8 x 2.6 x 0.9 cm and the left retrocrural lymph node several in number up to 1 cm no lytic or blastic bone lesion seen. Started on Zoladex 10.8 mg , first dose given in Dr. 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 Howell was seen by Dr. Vaughn for urinary frequency hesitancy and nocturia ???3 with an AUA symptom score of 10. He did denied dysuria, hematuria weak stream or incontinence. And his bowels were regular at that time. It was elected that he remain on observation as he has stage IV disease and radiation therapy would be consider palliative. Mr. Howell continues with androgen deprivation therapy with every 3 month Zoladex. There has been no evidence of disease progression. Plan: Discussed with patient regarding his labs white blood count 14.2 hemoglobin 13.3 hematocrit 40.9 platelets 326,000 CMP within normal limits PSA 0.149 compared to 0.066 on May 07, 2021 Clinically, patient doing well with no new signs symptom except discomfort in his right chest due to recent trauma, tolerating Zoladex well we will proceed with next dose today and then he will return to clinic in 3 months with CBC and PSA, If PSA continues to go up we will consider scan As far as leukocytosis concerned, blood count is stable, will continue to monitor Signed By: Jerson Hickey M.D. <<Signature on File>>
== END 2021-08-19 12:12 | disposition home or self-care (01) ==
LOC: ONCMED 12:14
PROVIDERS: PCP Family Medicine; Visit Provider Internal Medicine Hematology & Oncology
DX: C61 Malignant neoplasm of prostate (principal); R97.20 Elevated prostate specific antigen [PSA]; M54.50 Low back pain, unspecified; G89.29 Other chronic pain; G62.9 Polyneuropathy, unspecified; Z79.818 Long term (current) use of other agents affecting estrogen receptors and estrogen levels; Z79.899 Other long term (current) drug therapy
CPT/HCPCS: 36415; 80053; 84153; 85025; 96372; 96402; 99215; J9202

== ENCOUNTER → 2021-11-04 11:49 | Day surgery (SDC) | payer MEDICARE, MEDICAID, SELFPAY | PROVIDERS: PCP Family Medicine; Visit Provider Orthopaedic Surgery | DX: Z01.818 Encounter for other preprocedural examination (principal) | CPT/HCPCS: 93005 ==

== ENCOUNTER → 2021-11-11 09:00 | Outpatient (BNVA) | payer MEDICARE, MEDICAID, SELFPAY | PROVIDERS: PCP Family Medicine; Visit Provider Orthopaedic Surgery | DX: Z20.822 Contact with and (suspected) exposure to COVID-19 (principal) | CPT/HCPCS: 87635 ==

== ENCOUNTER 2021-11-28 09:53 | Outpatient (CLI) | payer MEDICARE, MEDICAID, SELFPAY ==
[2021-11-28 10:28] LABS: Basophils # 0.1 10^3/uL (0.0-0.1); Basophils % 0.7 %; Eosinophils # 0.6 10^3/uL (0.0-0.8); Hematocrit 40.9 % (42.0-52.0); Hemoglobin 13.1 g/dL (11.7-16.6); Lymphocytes # 2.8 10^3/uL (0.8-4.8); Lymphocytes % 20.5 %; Mean Corpuscular Hemoglobin 29.5 pg (28.0-34.0); Mean Corpuscular Volume 92.1 fl (80-94); Mean Platelet Volume 9.7 fL (7.4-10.4); Monocytes # 1.6 10^3/uL (0.2-0.9); Neutrophils # 8.45 10^3/uL (1.8-7.7); Neutrophils % 62.1 %; Nucleated Red Blood Cells % 0 %; Platelet Count 313 10^3/cmm (130-400); Red Blood Count 4.44 10^6/uL (4.1-5.3); Red Cell Distribution Width 12.6 % (12.1-15.1); White Blood Count 13.6 10^3/uL (4.0-10.0)
[2021-11-28 10:48] LABS: Prostate Specific Antigen 0.334 ng/mL (0-4)
== END 2021-11-28 09:54 | disposition home or self-care (01) ==
PROVIDERS: PCP Family Medicine; Visit Provider Internal Medicine Hematology & Oncology
DX: C61 Malignant neoplasm of prostate (principal)
CPT/HCPCS: 36415; 84153; 85025

== ENCOUNTER 2021-12-01 08:59 | Outpatient (CLI) | payer MEDICARE, MEDICAID, SELFPAY ==
[2021-12-01] MEDS: lidocaine 1% INJ 20 mL INJECTION (09:30)
[2021-12-01] MEDS: goserelin acetate 10.8 mg Implant SUBCUT (09:45)
--- NOTE | 2021-12-03 15:29 | ONC FU_ITS ---
Lydia Ratliff Progress Note Patient: Gabino Howell Unit #: [id number]: 1935 Dicatated By: Lydia Ratliff N.P.Date of Visit:Dec 01, 2021 Onc MED Follow-up/Prog Note Chief Complaint: Prostate cancer History of Present Illness: Mr. Howell is an 86-year-old gentleman who was noted to have a PSA of 8 in May 2017. He underwent observation. However by September 2017 it had gone up to 37. He had a TRUSP/biopsy on 09/23/2017. 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 At that time left external iliac lymph nodes measuring 2.4 x 2.9 x 3.7 cm, left retroperitoneal lymph nodes just inferior to the left renal artery measuring 1.5 cm and lymph nodes posterior to the descending thoracic aorta measuring 1.8 x 0.9 x 2.6 cm as well as several retrocrural lymph nodes measuring up to 1 cm were noted. There was no evidence of lytic or blastic bony destruction lesions at that time. He started androgen deprivation therapy Dr. Henao in December 2017. His PSA at that time a 61.8. He tolerated the androgen deprivation therapy With Zoladex/Casodex well and had a good response and that his PSA had dropped to 0.5. Repeat CT of the abdomen/pelvis on 04/05/2018 revealed resolution or significant shrinkage of the periaortic, retroperitoneal and pelvic lymphadenopathy. Bone scan in March 2018 also showed no evidence of bony metastatic disease. In March 2018, Mr. Howell was seen by Dr. Vaughn for urinary frequency hesitancy and nocturia ???3 with an AUA symptom score of 10. He did denied dysuria, hematuria weak stream or incontinence. And his bowels were regular at that time. It was elected that he remain on observation as he has stage IV disease and radiation therapy would be consider palliative. He is tolerating ADT with Zoladex/Casodex well otherwise. Follow-up CT scan of abdomen pelvis done on 10/25/2019 showed no evidence of metastatic disease in the bones or lymphadenopathy. Stable hepatic and renal cysts.. Bone scan done on 10/25/2019 showed no osseous metastatic disease. Moderate right hip joint osteoarthritis, new since 03/30/2018. He continues Zoladex every 3 months. Casodex was stopped in January 2019. Patient presents today for follow-up. He states he has mild fatigue but otherwise he feels well. His appetite is good. No fever, chills, night sweats. No shortness of breath, cough or chest pain. He denies GI problems. He states his urinary stream is a little slow but that is nothing new. He is here today to receive his Zoladex. Review Of Symptoms: See above Past Medical History: Arteriosclerotic heart disease Hyperlipidemia Hypertension Peripheral vascular disease Covid virus in 2021 Past Surgical History: Cardiac stent x2 Flu vac in 2019 Shingles vac #1 in 2020 Allergies: No Known Allergies. Medications: Aspir-81 1 (81 mg) Tablet, enteric coated Oral daily Atorvastatin Calcium 1 (80 mg) Tablet Oral daily Finasteride 1 (5 mg) Tablet Oral daily HYDROcodone-Acetaminophen 1 Tablet (of 10-325 mg) Oral q 8 hours PRN Losartan Potassium 1 (100 mg) Tablet Oral daily Metoprolol Tartrate 1 (25 mg) Tablet Oral daily Norvasc 1 (10 mg) Tablet Oral daily ProAir HFA 2 Puff(s) (of 108 (90 base) mcg/act) Aerosol, solution Inhalation q 4 hours PRN Stool Softener 1 (100 mg) Tablet Oral daily Tamsulosin HCl 1 (0.4 mg) Capsule Oral daily Zoladex 1 Subcutaneous q 90 days Family History: Mr. Howell's mother at age 68: type II diabetes, and myocardial infarction. Mr. Howell's father at age 70: congestive heart failure. Mr. Howell has 1 brother who is : myocardial infarctio. He has 1 sister who is : stomach cancer. Social History: Mr. Howell is and he is retired. Mr. Howell has never smoked. He has no history of drinking. Physical Examination: Performed on Dec 01, 2021 10:23: Height - 66.00 in, Weight - 179.2 lbs (HIGH), BSA - 1.91 sq.m, BMI - 28.92, Temperature - 96.8 F (LOW), Pulse - 62 /min, Respiration - 18 /min, BP - 130/72 mm(hg), O2 Sat - 99 %, Pain - 0, and Fatigue - 5. Performance Status: 1 - No physically strenuous activity, but ambulatory and able to carry out light or sedentary work (e.g. office work, light house work). (ECOG) Constitutional Alert, cooperative, oriented. Mood and affect appropriate. Appears close to chronological age. Well nourished. Well developed. Head Normocephalic; no scars. Respiratory Lungs are clear to auscultation without rhonchi or wheezing. Cardiovascular Regular rate and rhythm of heart without murmurs, gallops or rubs. Abdomen Non-tender, non-distended, no masses, ascites or hepatosplenomegaly. Good bowel sounds. No guarding or rebound tenderness. Extremities No visible deformities, no cyanosis, clubbing or edema. Pulses 3+ and equal bilaterally. Psychiatric Alert and oriented times three. Coherent speech. Verbalizes understanding of our discussions today. Laboratory: Test performed on Aug 19, 2021 13:45 WBC 14.2 10^9/L RBC 4.49 10^12/L HGB 13.3 g/dL HCT 40.9 % MCV 91.1 fl MCH 29.6 pg MCHC 32.5 g/dL RDW 12.4 % Platelet Count 326 10^9/L MPV 9.8 fL Neutrophils (Gran) 9.48 10^9/L Lymphocytes 2.769 10^9/L Monocytes 1.4768 10^9/L Eosinophils 0.3266 10^9/L Basophils 0.0852 10^9/L NRBCs 0.0 /100 WBC Impression: Adenocarcinoma the prostate 3+3/3+4 [place] per prostrate needle biopsy done on 09/23/2017. Initially no treatment was considered but his PSA continued to go up, to 61 then patient agreed for staging workup underwent CT scan of abdomen pelvis on 01/04/2018 which showed mild prostate gland enlargement, left external iliac lymphadenopathy 2.4 x 2.9 x 3.7 cm and left retroperitoneal lymph node 1.5 cm and other retroperitoneal lymph nodes size 1.8 x 2.6 x 0.9 cm and the left retrocrural lymph node several in number up to 1 cm no lytic or blastic bone lesion seen. Started on Zoladex 10.8 mg , first dose given in Dr. 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 Howell was seen by Dr. Vaughn for urinary frequency hesitancy and nocturia ???3 with an AUA symptom score of 10. He did denied dysuria, hematuria weak stream or incontinence. And his bowels were regular at that time. It was elected that he remain on observation as he has stage IV disease and radiation therapy would be consider palliative. Mr. Howell continues with androgen deprivation therapy with every 3 month Zoladex. There has been no evidence of disease progression. Plan: Discussed lab results with patient PSA is 0.334 compared to 0.149 in August. We will continue to monitor. He will receive his Zoladex today. Return to clinic in 3 months with PSA. Signed By: Lydia Ratliff N.P. <<Signature on File>>
== END 2021-12-01 09:00 | disposition home or self-care (01) ==
LOC: ONCMED 09:06
PROVIDERS: PCP Family Medicine; Visit Provider Nurse Practitioner Family
DX: C61 Malignant neoplasm of prostate (principal); Z79.818 Long term (current) use of other agents affecting estrogen receptors and estrogen levels; R97.21 Rising PSA following treatment for malignant neoplasm of prostate; E78.5 Hyperlipidemia, unspecified; I10 Essential (primary) hypertension; I73.9 Peripheral vascular disease, unspecified; Z79.899 Other long term (current) drug therapy
CPT/HCPCS: 96372; 96402; 99215; J9202

== ENCOUNTER 2021-12-19 07:23 | Outpatient (CLI) | payer MEDICARE, MEDICAID, SELFPAY ==
--- NOTE | 2021-12-19 07:54 | NM_ITS ---
WS: [id number] NUCLEAR MEDICINE BONE SCAN Radiopharmaceutical: 25.1 Tc-99m MDP mCi IV Injection site: RIGHT antecubital Postinjection imaging delay: 1 hr CLINICAL INFORMATION: PROSTATE CANCER COMPARISON: October 25, 2019 FINDINGS: Bone lesions: There are no osseous lesions suspicious for metastatic disease. Soft tissue contours: Normal. Kidneys: Normal. Other findings: Multiple punctate foci of uptake in the mid and lower posterior and anterolateral RIG HT ribs consistent with healing rib fractures. Degenerative type uptake in the cervical spine. Focal uptake in the RIGHT femoral head unchanged since October 25, 2019 NM/NM bone scan whole body* [id number] IMPRESSION: 1. No evidence of osseous metastatic disease. 2. Evidence of RIGHT mid and lower healing rib fractures 3. Degenerative type uptake in the RIGHT femoral head similar to October 25 020. Advanced osteoarthritis with subchondral cystic change in this area on the concurrent CT
--- NOTE | 2021-12-19 07:58 | CT_ITS ---
WS: [id number] CT ABDOMEN PELVIS TECHNIQUE: Contrast-enhanced CT of the abdomen and pelvis with coronal and sagittal reformatted image s. CLINICAL INFORMATION: PROSTATE CANCER COMPARISON: None. DLP: 1703.[address] scans at [facility] use at least one of these dose optimization techniques: automated e xposure control; mA and/or kV adjustment per patient size (includes targeted exams where dose is matc hed to clinical indication); or iterative reconstruction. FINDINGS: Mild diffuse fatty infiltration of the liver. Large hepatic cysts unchanged since October 23, 2019. N ormal portal vein and splenic vein. Normal spleen. Mild fatty atrophy of the pancreas. Normal GE junc tion. Atelectasis in the lungs bases. Adrenal glands are normal. Normal renal parenchymal enhancement. [place]ume [place] bilateral largest in the mid aspect RIGHT kidney measuring 4.9 x 3.5 cm. No hydronephrosis. Normal caliber abdominal aorta. Sigmoid diverticulosis. No evidence of acute diverticulitis. No high- grade small or large bowel obstruction. Normal appendix in the RIGHT lower quadrant. Bilateral pars d efects L5-S1 with grade 1 anterolisthesis. Disc space narrowing worse L4-L5 and L5-S1. Small central protrusion L1-L2. Advanced degenerative arthritis RIGHT hip with subchondral cystic change and kiju-kw-vohv articulati on. Prominent enhancing prostate. Small RIGHT dorsal bladder diverticulum measuring 11 mm. Incidental benign-appearing enchondroma RIGHT proximal femoral shaft CT/CT abdomen pelvis w con* [id number] IMPRESSION: 1. No abdominal or pelvic lymphadenopathy. No inguinal lymphadenopathy. 2. Large hepatic cysts are unchanged. 3. Numerous bilateral renal cysts. No hydronephrosis. 4. Sigmoid diverticulosis. 5. Advanced osteoarthritis RIGHT hip with subchondral cystic change and bone-o n-bone articulation. 6. No evidence of osseous metastatic disease. 7. Grade 1 anterolisthesis L5 on S1 with bilateral pars defects.
[2021-12-19] MEDS: iodixanol 320 mg/mL 100mL Btl IV (10:19)
[2021-12-19] MEDS: iohexol 300 mg/mL 50 mL Btl PO (10:20)
== END 2021-12-19 07:24 | disposition home or self-care (01) ==
PROVIDERS: PCP Family Medicine; Visit Provider Nurse Practitioner Family
DX: C61 Malignant neoplasm of prostate (principal); K76.89 Other specified diseases of liver; Q61.02 Congenital multiple renal cysts; K57.30 Diverticulosis of large intestine without perforation or abscess without bleeding; M16.11 Unilateral primary osteoarthritis, right hip
CPT/HCPCS: 74177; 78306; 78315; A9561

== ENCOUNTER 2021-12-24 12:06 | Outpatient (CLI) | payer MEDICARE, MEDICAID, SELFPAY ==
[2021-12-24 13:19] LABS: Basophils # 0.1 10^3/uL (0.0-0.1); Basophils % 0.8 %; Eosinophils # 0.9 10^3/uL (0.0-0.8); Eosinophils % 6.7 %; Hematocrit 40.1 % (42.0-52.0); Hemoglobin 12.7 g/dL (11.7-16.6); Lymphocytes # 3.5 10^3/uL (0.8-4.8); Lymphocytes % 26.8 %; Mean Corpuscular HGB Conc 31.7 g/dL (30.0-36.0); Mean Corpuscular Hemoglobin 29.4 pg (28.0-34.0); Mean Corpuscular Volume 92.8 fl (80-94); Mean Platelet Volume 9.8 fL (7.4-10.4); Monocytes # 1.6 10^3/uL (0.2-0.9); Monocytes % 12.1 %; Neutrophils # 6.82 10^3/uL (1.8-7.7); Neutrophils % 53.1 %; Nucleated Red Blood Cells % 0 %; Platelet Count 316 10^3/cmm (130-400); Red Blood Count 4.32 10^6/uL (4.1-5.3); Red Cell Distribution Width 12.4 % (12.1-15.1); White Blood Count 12.9 10^3/uL (4.0-10.0)
[2021-12-24 13:40] LABS: Alanine Aminotransferase 17 U/L (0-41); Albumin Level 4.4 g/dL (3.5-5.2); Alkaline Phosphatase 107 IU/L (40-130); Anion Gap 16.7 (5-19); Aspartate Amino Transferase 24 U/L (0-40); Blood Urea Nitrogen 23 mg/dL (8-23); Calcium 9.5 mg/dL (8.5-10.5); Carbon Dioxide 22 mmol/L (22-29); Chloride 104 mmol/L (98-107); Globulin 3.8 g/dL (1.3-4.6); Glucose 103 mg/dL (65-115); Osmolality Calculated 290 mOsm/kg (285-295); Potassium 4.7 mmol/L (3.5-5.1); Prostate Specific Antigen 0.352 ng/mL (0-4); Sodium 138 mmol/L (136-145); Total Bilirubin 0.2 mg/dL (0.15-1.2); Total Protein 8.2 g/dL (6.6-8.7)
--- NOTE | 2021-12-28 18:17 | ONC FU_ITS ---
Lydia Ratliff Progress Note Patient: Gabino Howell Unit #: [id number]: 1935 Dicatated By: Lydia Ratliff N.P.Date of Visit:Dec 24, 2021 Onc MED Follow-up/Prog Note Chief Complaint: Prostate cancer History of Present Illness: Mr. Howell is an 86-year-old gentleman who was noted to have a PSA of 8 in May 2017. He underwent observation. However by September 2017 it had gone up to 37. He had a TRUSP/biopsy on 09/23/2017. 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 At that time left external iliac lymph nodes measuring 2.4 x 2.9 x 3.7 cm, left retroperitoneal lymph nodes just inferior to the left renal artery measuring 1.5 cm and lymph nodes posterior to the descending thoracic aorta measuring 1.8 x 0.9 x 2.6 cm as well as several retrocrural lymph nodes measuring up to 1 cm were noted. There was no evidence of lytic or blastic bony destruction lesions at that time. He started androgen deprivation therapy Dr. Henao in December 2017. His PSA at that time a 61.8. He tolerated the androgen deprivation therapy With Zoladex/Casodex well and had a good response and that his PSA had dropped to 0.5. Repeat CT of the abdomen/pelvis on 04/05/2018 revealed resolution or significant shrinkage of the periaortic, retroperitoneal and pelvic lymphadenopathy. Bone scan in March 2018 also showed no evidence of bony metastatic disease. In March 2018, Mr. Howell was seen by Dr. Vaguhn for urinary frequency hesitancy and nocturia ???3 with an AUA symptom score of 10. He did denied dysuria, hematuria weak stream or incontinence. And his bowels were regular at that time. It was elected that he remain on observation as he has stage IV disease and radiation therapy would be consider palliative. He is tolerating ADT with Zoladex/Casodex well otherwise. Follow-up CT scan of abdomen pelvis done on 10/25/2019 showed no evidence of metastatic disease in the bones or lymphadenopathy. Stable hepatic and renal cysts.. Bone scan done on 10/25/2019 showed no osseous metastatic disease. Moderate right hip joint osteoarthritis, new since 03/30/2018. He continues Zoladex every 3 months. Casodex was stopped in January 2019. Patient presents today for follow-up. He states he has mild fatigue but otherwise he feels well. His appetite is good. No fever, chills, night sweats. No shortness of breath, cough or chest pain. He denies GI problems. He states his urinary stream is a little slow but that is nothing new. His PSA was elevated slightly last month at 0.334. he presents today for a recheck. Review Of Symptoms: see above. Past Medical History: Arteriosclerotic heart disease Hyperlipidemia Hypertension Peripheral vascular disease Covid virus in 2021 Past Surgical History: Cardiac stent x2 Flu vac in 2019 Shingles vac #1 in 2019 Allergies: No Known Allergies. Medications: Aspir-81 1 (81 mg) Tablet, enteric coated Oral daily Atorvastatin Calcium 1 (80 mg) Tablet Oral daily Finasteride 1 (5 mg) Tablet Oral daily HYDROcodone-Acetaminophen 1 Tablet (of 10-325 mg) Oral q 8 hours PRN Losartan Potassium 1 (100 mg) Tablet Oral daily Metoprolol Tartrate 1 (25 mg) Tablet Oral daily Norvasc 1 (10 mg) Tablet Oral daily ProAir HFA 2 Puff(s) (of 108 (90 base) mcg/act) Aerosol, solution Inhalation q 4 hours PRN Stool Softener 1 (100 mg) Tablet Oral daily Tamsulosin HCl 1 (0.4 mg) Capsule Oral daily Zoladex 1 Subcutaneous q 90 days Family History: Mr. Howell's mother at age 68: type II diabetes, and myocardial infarction. Mr. Howell's father at age 70: congestive heart failure. Mr. Howell has 1 brother who is : myocardial infarctio. He has 1 sister who is : stomach cancer. Social History: Mr. Howell is and he is retired. Mr. Howell has never smoked. He has no history of drinking. Physical Examination: Performed on Dec 24, 2021 15:09: Height - 66.00 in, Weight - 179.0 lbs (LOW), BSA - 1.91 sq.m, BMI - 28.89, Temperature - 97.0 F (LOW), Pulse - 79 /min, Respiration - 18 /min, BP - 139/65 mm(hg), O2 Sat - 97 %, Pain - 0, and Fatigue - 5. Performance Status: 1 - No physically strenuous activity, but ambulatory and able to carry out light or sedentary work (e.g. office work, light house work). (ECOG) Constitutional Alert, cooperative, oriented. Mood and affect appropriate. Appears close to chronological age. Well nourished. Well developed. Head Normocephalic; no scars. Respiratory Lungs are clear to auscultation without rhonchi or wheezing. Cardiovascular Regular rate and rhythm of heart without murmurs, gallops or rubs. Abdomen Non-tender, non-distended, no masses, ascites or hepatosplenomegaly. Good bowel sounds. No guarding or rebound tenderness. Extremities No visible deformities, no cyanosis, clubbing or edema. Psychiatric Alert and oriented times three. Coherent speech. Verbalizes understanding of our discussions today. Laboratory: Test performed on Dec 24, 2021 12:40 Sodium 138 mmol/L Potassium 4.7 mmol/L Chloride 104 mmol/L CO2 22 mmol/L Anion Gap 16.7 BUN 23 mg/dL Creatinine 1.1 mg/dL Cr Clearance (Est) 55.3600 mL/min Glucose 103 mg/dL Osmolality - Calculated 290 mOsm/kg Calcium 9.5 mg/dL Protein, Total 8.2 g/dL Albumin 4.4 g/dL Globulin 3.8 g/dL Bilirubin, Total 0.2 mg/dL ALT (SGPT) 17 U/L AST (SGOT) 24 U/L Alkaline Phosphatase 107 IU/L WBC 12.9 10 3/uL RBC 4.32 10 6/uL HGB 12.7 g/dL HCT 40.1 % MCV 92.8 fl MCH 29.4 pg MCHC 31.7 g/dL RDW 12.4 % Platelet Count 316 10 3/cmm MPV 9.8 fL Neutrophils 6.82 10 3/uL Lymphocytes 3.5 10 3/uL Monocytes 1.6 10 3/uL Eosinophils 0.9 10 3/uL Basophils 0.1 10 3/uL Neutrophil % 53.1 % Lymphocyte % 26.8 % Monocyte % 12.1 % Eosinophil % 6.7 % Basophils % 0.8 % NRBC % 0 % PSA 0.352 ng/mL Test performed on Aug 19, 2021 13:45 NRBCs 0.0 /100 WBC Impression: Adenocarcinoma the prostate 3+3/3+4 [place] per prostrate needle biopsy done on 09/23/2017. Initially no treatment was considered but his PSA continued to go up, to 61 then patient agreed for staging workup underwent CT scan of abdomen pelvis on 01/04/2018 which showed mild prostate gland enlargement, left external iliac lymphadenopathy 2.4 x 2.9 x 3.7 cm and left retroperitoneal lymph node 1.5 cm and other retroperitoneal lymph nodes size 1.8 x 2.6 x 0.9 cm and the left retrocrural lymph node several in number up to 1 cm no lytic or blastic bone lesion seen. Started on Zoladex 10.8 mg , first dose given in Dr. 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 Howell was seen by Dr. Vaughn for urinary frequency hesitancy and nocturia ???3 with an AUA symptom score of 10. He did denied dysuria, hematuria weak stream or incontinence. And his bowels were regular at that time. It was elected that he remain on observation as he has stage IV disease and radiation therapy would be consider palliative. Mr. Howell continues with androgen deprivation therapy with every 3 month Zoladex. There has been no evidence of disease progression. Plan: Discussed lab results with patient PSA is 0.334 compared to 0.149 in August. Today it is stable at 0.352. He is also here to discuss CT scan of abdomen/pelvis and bone scan. CT scan of abdomen pelvis was performed on 12/19/2021 which indicated no abdominal or pelvic lymphadenopathy. No inguinal lymphadenopathy. There are large hepatic cysts that were unchanged. Numerous bilateral renal cyst. No hydronephrosis. Sigmoid diverticulosis. Advanced osteoarthritis right hip was chondral cystic change and dkjn-[id number]-qcty articulation. No evidence of osseous metastatic disease. Grade 1 anterolisthesis of L5 on S1 with bilateral pars defects. He also had a bone scan performed on 12/19/2021 which indicated no evidence of osseous metastatic disease. There was evidence of right mid and lower healing rib fractures. There is degenerative type uptake to the right femoral head similar to October 25, 2019. Advanced osteoarthritis with subchondral cystic changes in the area on the concurrent CT. Return to clinic in two months with PSA and for zoladex injection Signed By: Lydia Ratliff N.P. <<Signature on File>>
== END 2021-12-24 12:07 | disposition home or self-care (01) ==
PROVIDERS: PCP Family Medicine; Visit Provider Nurse Practitioner Family
DX: Z85.46 Personal history of malignant neoplasm of prostate (principal); M16.11 Unilateral primary osteoarthritis, right hip; I10 Essential (primary) hypertension; E78.5 Hyperlipidemia, unspecified; I73.9 Peripheral vascular disease, unspecified; G89.29 Other chronic pain; Z79.899 Other long term (current) drug therapy; Z86.16 Personal history of COVID-19
CPT/HCPCS: 36415; 80053; 84153; 85025; 99214

== ENCOUNTER → 2022-01-01 00:01 | Outpatient (BNVA) | payer MEDICARE, MEDICAID, SELFPAY | PROVIDERS: PCP Family Medicine; Visit Provider Orthopaedic Surgery | DX: Z01.812 Encounter for preprocedural laboratory examination (principal); Z20.822 Contact with and (suspected) exposure to COVID-19 | CPT/HCPCS: 87635 ==

== ENCOUNTER 2022-01-05 11:59 | Observation (INO) | payer MEDICARE, MEDICAID, SELFPAY ==
--- NOTE | 2021-11-04 11:49 | ECG_ITS ---
[facility] Test Date: 2021-11-04 Pat Name: Gabino Howell Department: Room: Gender: Male Laryngologist: : 1935 Requested By: Darin Banda Order Number: [id number] Imtiaz MD: Michelle Mehta M.D. Measurements Intervals [place] Rate: 65 P: 26 VA: 188 QRS: 30 QRSD: 107 T: 15 QT: 419 QTc: 436 Interpretive Statements SINUS RHYTHM WITH OCCASIONAL VENTRICULAR PREMATURE COMPLEXES No previous ECG available for comparison Electronically Signed On 11-04-2021 17:25:40 EXTERMINATOR TERMITE by Michelle Mehta M.D. [id number]
[2021-11-04 12:31] VITALS: BMI 29.0
[2021-11-04 12:38] LABS: Basophils # 0.1 10^3/uL (0.0-0.1); Basophils % 0.8 %; Eosinophils # 0.5 10^3/uL (0.0-0.8); Eosinophils % 3.8 %; Hemoglobin 13.5 g/dL (11.7-16.6); Lymphocytes # 2.8 10^3/uL (0.8-4.8); Lymphocytes % 20.9 %; Mean Corpuscular HGB Conc 32.1 g/dL (30.0-36.0); Mean Corpuscular Hemoglobin 29.2 pg (28.0-34.0); Mean Corpuscular Volume 90.7 fl (80-94); Mean Platelet Volume 9.7 fL (7.4-10.4); Monocytes # 1.3 10^3/uL (0.2-0.9); Monocytes % 9.5 %; Neutrophils # 8.63 10^3/uL (1.8-7.7); Neutrophils % 64.4 %; Nucleated Red Blood Cells % 0 %; Platelet Count 303 10^3/cmm (130-400); Red Blood Count 4.63 10^6/uL (4.1-5.3); Red Cell Distribution Width 12.4 % (12.1-15.1); White Blood Count 13.4 10^3/uL (4.0-10.0)
--- NOTE | 2021-11-04 12:55 | P.ANESASSM_ITS ---
Pre-Anesthetic Assessment Height/Weight: Height 1.68 m Weight 81.647 kg Preop Diagnosis: OsteoarthritisRight hip Operation Date: 11/17/21 07:00 Proposed Procedures p Total Hip Arthroplasty 90311; m16.11(Right) - Andrew Bal MD Familial anesthetic complications: None Was Beta Denice taken within 24 hours: Yes Was Clonidine taken within 24 hours: N/A Social No alcohol and No tobacco Exam alert, oriented x 3, clear to auscultation bilaterally and regular rate & rhythm Airway Submandibular: within normal limits Cervical ROM: within normal limits Mallampati: Class II Dentition: false Pulmonary Chronic Obstructive Pulmonary Disease CV/HEM Arrythmia (Brian), Coronary Artery Disease (PTCA) and Hypertension [facility] [place] Oste[place]/DJD Anesthetic Plan ASA status: 3 Anesthesia: Regional (specify below) (SAB) Risk of > 500 ml blood loss (7ml/kg in children): Yes, adequate IV access and fluids planned Medications/Allergies Home Medications Medication Instructions Recorded Confirmed Last Taken Type amlodipine 10 mg tablet 10 mg PO DAILY 11/22/19 11/04/21 11/03/21 20:00 History aspirin 81 mg tablet,delayed 81 mg PO DAILY 11/22/19 11/04/21 11/03/21 20:00 History release (Adult Low Dose Aspirin) atorvastatin 80 mg tablet 80 mg PO DAILY 11/22/19 11/04/21 11/04/21 08:00 History docusate sodium 100 mg capsule 100 mg PO BID 11/22/19 11/04/21 11/04/21 History (Stool Softener) finasteride 5 mg tablet 5 mg PO DAILY 11/22/19 11/04/21 11/04/21 History hydrocodone 5 mg-acetaminophen 325 1 tab PO Q8H PRN 11/22/19 11/04/21 11/04/21 History mg tablet losartan 100 mg tablet 100 mg PO DAILY 11/22/19 11/04/21 11/04/21 08:00 History metoprolol tartrate 25 mg tablet 25 mg PO DAILY 11/22/19 11/04/21 11/04/21 08:00 History multivitamin 1 tab PO DAILY 11/22/19 11/04/21 Unknown History tamsulosin 0.4 mg capsule 0.4 mg PO DAILY 11/22/19 11/04/21 11/04/21 08:00 History nitroglycerin 0.4 mg sublingual 0.4 mg SUBLINGUAL Q5M PRN 30 Days 12/01/19 11/04/21 Unknown Rx tablet (Nitrostat) #25 tab albuterol sulfate 90 mcg/actuation 2 puff INHALATION Q6H PRN 05/01/21 11/04/21 11/04/21 09:00 History aerosol inhaler (ProAir HFA) Allergies Allergy/AdvReac Type Severity Reaction Status Date / Time No Known Allergies Allergy Verified 10/15/21 14:56 [facility] Anesthesia Medical History ASHD (arteriosclerotic heart disease) Bradycardia HTN (hypertension) Hyperlipidemia Surgical History S/P PTCA (percutaneous transluminal coronary angioplasty) Family History Mother , Age 68 DM Diabetes Brother Heart disease Father , Age 70 CHF CHF (congestive heart failure) Social History Alcohol intake: never History of recent travel: No Data Anesthesia : 11/04/21 12:15 11/04/21 12:15 Short CBC 11/04/21 Range/Units 12:15 WBC 13.4 H (4.0-10.0) 10^3/uL Hgb 13.5 (11.7-16.6) g/dL Hct 42.0 (42.0-52.0) % MCV 90.7 (80-94) fl Plt Count 303 (130-400) 10^3/cmm Neut % (Auto) 64.4 % Neut # (Auto) 8.63 H (1.8-7.7) 10^3/uL Cardiac Studies: No Data to Display
[2021-11-04 14:27] LABS: Anion Gap 20.3 (5-19); Blood Urea Nitrogen 23 mg/dL (8-23); Carbon Dioxide 19 mmol/L (22-29); Chloride 101 mmol/L (98-107); Glucose 102 mg/dL (65-115); Osmolality Calculated 286 mOsm/kg (285-295); Potassium 4.3 mmol/L (3.5-5.1); Sodium 136 mmol/L (136-145)
--- NOTE | 2021-11-14 14:55 | SUR.PREOP ---
0049 Call placed to pt's to inform her that her the pt was positive for covid 19 and surgery being cancelled and dr telles's office to call pt to reschedule sx, pt's verbalized understanding
--- NOTE | 2021-12-26 13:03 | ANES.PREANE2 ---
Pre-Anesthetic Assessment Height/Weight: Height 1.68 m Weight 81.647 kg Preop Diagnosis: OsteoarthritisRight hip Operation Date: 11/17/21 13:30 Proposed Procedures p Total Hip Arthroplasty 32690; m16.11(Right) - Andrew Bal MD Operation Date: 01/01/22 10:50 Proposed Procedures p Total Hip Arthroplasty 19511; m16.11(Right) - Andrew Bal MD Familial anesthetic complications: None Social No alcohol and No tobacco Airway Mallampati: Class II Dentition: false Pulmonary None reported CV/HEM Coronary Artery Disease (stent > 1 year ago) and Hypertension Hepatic None reported GI None reported Metabolic None reported Musc/skel None reported Neuropsych None reported Anesthetic Plan ASA status: 3 Anesthesia: Regional (specify below) (spinal + adductor) Medications/Allergies Home Medications Medication Instructions Recorded Confirmed Last Taken Type amlodipine 10 mg tablet 10 mg PO DAILY 11/22/19 11/04/21 11/03/21 20:00 History aspirin 81 mg tablet,delayed 81 mg PO DAILY 11/22/19 11/04/21 11/03/21 20:00 History release (Adult Low Dose Aspirin) atorvastatin 80 mg tablet 80 mg PO DAILY 11/22/19 11/04/21 11/04/21 08:00 History docusate sodium 100 mg capsule 100 mg PO BID 11/22/19 11/04/21 11/04/21 History (Stool Softener) finasteride 5 mg tablet 5 mg PO DAILY 11/22/19 11/04/21 11/04/21 History hydrocodone 5 mg-acetaminophen 325 1 tab PO Q8H PRN 11/22/19 11/04/21 11/04/21 History mg tablet losartan 100 mg tablet 100 mg PO DAILY 11/22/19 11/04/21 11/04/21 08:00 History metoprolol tartrate 25 mg tablet 25 mg PO DAILY 11/22/19 11/04/21 11/04/21 08:00 History multivitamin 1 tab PO DAILY 11/22/19 11/04/21 Unknown History tamsulosin 0.4 mg capsule 0.4 mg PO DAILY 11/22/19 11/04/21 11/04/21 08:00 History nitroglycerin 0.4 mg sublingual 0.4 mg SUBLINGUAL Q5M PRN 30 Days 12/01/19 11/04/21 Unknown Rx tablet (Nitrostat) #25 tab albuterol sulfate 90 mcg/actuation 2 puff INHALATION Q6H PRN 05/01/21 11/04/21 11/04/21 09:00 History aerosol inhaler (ProAir HFA) Allergies Allergy/AdvReac Type Severity Reaction Status Date / Time No Known Allergies Allergy Verified 10/15/21 14:56 [facility] Anesthesia Medical History ASHD (arteriosclerotic heart disease) Bradycardia HTN (hypertension) Hyperlipidemia Surgical History S/P PTCA (percutaneous transluminal coronary angioplasty) Family History Mother , Age 68 DM Diabetes Brother Heart disease Father , Age 70 CHF CHF (congestive heart failure) Social History Alcohol intake: never History of recent travel: No Data Anesthesia : 11/04/21 12:15 11/04/21 12:15 Cardiac Studies: No Data to Display
[2022-01-05] VITALS (17 sets, daily range): BP systolic 79–161; BP diastolic 52–82; PULSE 52–100; RESP 12–18; TEMP 36.1–36.8; O2SAT 93–99
[2022-01-05] MEDS: CELEcoxib 200 mg Capsule 400 MG PO (07:49)
[2022-01-05] MEDS: acetaminophen 500 mg Tablet 1000 MG PO ×2 (07:49→14:39)
[2022-01-05] MEDS: gabapentin 300 mg Capsule PO (07:49)
[2022-01-05] MEDS: sodium chloride 0.9% 1,000 ML 30 ML IV (07:49)
--- NOTE | 2022-01-05 08:45 | P.ANESUD_ITS ---
Pre-Anesthetic Update Pre-Anesthetic Assessment: Date of Surgery/Procedure: 01/05/22 Preop Nalini gnosis: OsteoarthritisRight hip Proposed Procedure: Operation Date: 11/17/21 13:30 Proposed Procedures p Total Hip Arthroplasty 09318; m16.11(Right) - Andrew Bal MD Operation Date: 01/05/22 09:30 Proposed Procedures p Total Hip Arthroplasty 45820; m16.11(Right) - Andrew Bal MD Any changes to Pre-Anesthetic Assessment?: No Last Intake: Intake Last Liquid Date 01/04/22 Last Liquid Time 20:00 Last Solid Date 01/04/22 Last Solid Time 16:00 Vitals: Temperature 97.0 F L 01/05/22 07:42 Pulse Rate 64 01/05/22 07:42 Pulse Rhythm 01/05/22 07:42 Pulse Strength 1+ Faint 01/05/22 07:42 Respiratory Rate 18 01/05/22 07:42 Blood Pressure 161/82 01/05/22 07:42 Blood Pressure Vickie n 108 01/05/22 07:42 Pulse Oximetry 97 01/05/22 07:42 Oxygen Delivery Me thod 01/05/22 07:42 Exam: Pre-Anes Outpt Exam: alert, oriented x 3, clear to auscultation bilaterally and regular rate & rhythm Cardiac Studies: No Data to Display
--- NOTE | 2022-01-05 09:15 | W.PM.OPSFHP ---
Same Day Surgery H&P Indication for Procedure/HPI DATE OF PROCEDURE: January 05, 2022 CHIEF COMPLAINT/INDICATIONFOR SURGICAL PROCEDURE: Arthritis right hip here for right total hip arthroplasty PREOP DIAGNOSIS: OsteoarthritisRight hip PLANNED PROCEDURE: Operation Date: 11/17/21 13:30 Proposed Procedures p Total Hip Arthroplasty 57323; m16.11(Right) - Andrew Bal MD Operation Date: 01/05/22 09:30 Proposed Procedures p Total Hip Arthroplasty 23054; m16.11(Right) - Andrew Bal MD 81-year-old male with severe now for unable to ambulate more than a block. Unresponsive to medications including hydrocodone. Here for elective right total hip arthroplasty Medications/Allergies* Home Medications Medication Instructions Recorded Confirmed Type amlodipine 10 mg tablet 10 mg PO DAILY 11/22/19 01/05/22 History aspirin 81 mg tablet,delayed 81 mg PO DAILY 11/22/19 01/05/22 History release (Adult Low Dose Aspirin) atorvastatin 80 mg tablet 80 mg PO DAILY 11/22/19 01/05/22 History docusate sodium 100 mg capsule 100 mg PO BID 11/22/19 01/05/22 History (Stool Softener) finasteride 5 mg tablet 5 mg PO DAILY 11/22/19 01/05/22 History hydrocodone 5 mg-acetaminophen 325 1 tab PO Q8H PRN 11/22/19 01/05/22 History mg tablet losartan 100 mg tablet 100 mg PO DAILY 11/22/19 01/05/22 History metoprolol tartrate 25 mg tablet 25 mg PO DAILY 11/22/19 01/05/22 History multivitamin 1 tab PO DAILY 11/22/19 01/05/22 History tamsulosin 0.4 mg capsule 0.4 mg PO DAILY 11/22/19 01/05/22 History albuterol sulfate 90 mcg/actuation 2 puff INHALATION Q6H PRN 05/01/21 01/05/22 History aerosol inhaler (ProAir HFA) Allergies/Adverse Reactions Allergy/AdvReac Type Severity Reaction Status Date / Time No Known Allergies Allergy Verified 01/05/22 07:37 Current Medications: Generic Name Dose Route Start Last Admin Trade Name Freq PRN Reason Stop Dose Admin Sodium Chloride 1,000 mls @ 30 mls/hr 01/05/22 07:30 01/05/22 07:49 Sodium Chloride 0.9% IV 01/06/22 07:29 30 mls/hr .Q24H ZAC Administration Pertinent History/Comorbid Conditions* Medical History (Updated 08/15/21 @ 16:55 by DNAG Carpenter) ASHD (arteriosclerotic heart disease) Bradycardia HTN (hypertension) Hyperlipidemia Surgical History (Updated 11/22/19 @ 16:01 by Ayo Shine MD) S/P PTCA (percutaneous transluminal coronary angioplasty) Family History (Updated 11/22/19 @ 11:21 by Celsa Coe RN) Father, Age 70 CHF Mother, Age 68 DM Diabetes Mother CHF (congestive heart failure) Father Heart disease Brother Social History Alcohol intake: never History of recent travel: No Pertinent Exam Findings alert, oriented x 3, clear to auscultation bilaterally, regular rate & rhythm and operative site marked Recommendations Surgery/Procedure today Coding Level of Care Code Acute Community Living Instructor for Kosta Iyer
--- NOTE | 2022-01-05 12:05 | XR_ITS ---
WS: [id number] Exam: XR hip RT 1V wo/[place] [id number] Date/Time of Exam: 01/05/2022 12:27 PM Reason For Exam: right total hip AP view the right hip shows a total prosthesis in place. Postoperative changes in the adjacent soft t issues. XR/XR hip RT 1V wo/w pel [id number] IMPRESSION: 1. Total hip replacement as described above.
--- NOTE | 2022-01-05 12:07 | P.OP_ITS ---
Operative Report Date of procedure: January 05, 2022 Pre-op diagnosis: Preop Diagnosis OsteoarthritisRight hip Post-op diagnosis: same Post-op diagnosis: Same Post-op findings: Same Procedure done: Right total hip arthroplasty Implants: 1) Chance 56 mm Trident 2 solid back acetabular shell 2) Size 6 Vandergrift 127 degree neck angle Accolade 2 stem 3} 28mm -2.7 ceramic femoral head 4} MDM metal liner Pathology: none sent Surgeon: Andrew Bal Anesthesia: General Estimated blood loss (mL): 100 Complications: None Findings: The patient had eburnated bone over his femoral head and acetabulum Condition: stable Disposition: PACU Procedure: The patient was taken to the operating room and anesthesia provided by the anesthesia service. The patient was placed in the lateral position on a pegboard. A timeout was performed. The patient was draped in the usual fashion. A 15 cm long incision was made beginning just proximal to the greater trochanter and extending posteriorly to a point just distal to the trochanter on the posterior border of the trochanter. Dissection was carried down with electrocautery through the subcutaneous fat to the fascia aylin which was divided proximally and distally with curved scissors. The anterior two thirds of the gluteus medius and minimus were elevated off the hip with electrocautery. The capsule was divided in a H-like fashion. The hip was dislocated and a neck cut made just above the level of the lesser trochanter. Exposure of the acetabulum was facilitated with the acetabular retractors. Remnants of labrum and peripheral osteophytes were removed with electrocautery and a rongeur. A reamer 2 mm under the size the femoral head was utilized to ream medially to the base of the palm and are. Reaming was then increased in 1 mm intervals until a healthy rim a trabecular bone was encountered. The rim was touched with the reamer the size of the final acetabular shell to be placed. A final Trident 2 acetabular cup of the same size as the final reaming was press- fit into place. The ADM liner was secured. Attention was then focused on the femur. The canal was localized with a canal finder. Broaching was then accomplished until a stable broach size was obtained. A trial reduction with the head and neck provided excellent stability. The wound was irrigated with saline and antibiotic solution. The final Chance Accolade II stem was press-fit into place. The femoral head was placed and the hip was reduced. The hip was brought through range of motion and found to be free of impingement and stable. The anterior capsule was reapproximated with 1 Ethibond. The gluteus medius and minimus were repaired through bone with 5 Ethibond and reinforced with 1 Ethibond. The fascial aylin was closed with a running 0 Stratafix suture. Deep pelvic tissues were closed with 2-0 Stratafix and the skin with a running 4-0 l Stratafix. The skin was covered with a Prineo dressing and op site dressings.
[2022-01-05] MEDS: sodium chloride 0.9% 1,000 ML 100 ML IV ×2 (13:28→23:08)
--- NOTE | 2022-01-05 13:50 | ANE.PACU2 ---
Inpatient post-anesthesia follow up: Airway intact: Yes Vital signs: Temperature 97.0 F Pulse Rate 58 Respiratory Rate 18 Blood Pressure 111/52 Pulse Oximetry 97 Oxygen Delivery Me thod Nasal Cannula Oxygen Flow Rate 3 Fraction of Inspir ed Oxygen Hydration adequate: Yes Nausea and vomiting: No Pain level: 1 Mental status: Baseline
[2022-01-05] MEDS: oxyCODONE 5 mg IR Tab/Cap PO (14:39)
[2022-01-05] MEDS: docusate sodium 100 mg Capsule PO (18:38)
[2022-01-05] MEDS: CELEcoxib 200 mg Capsule PO (18:38)
[2022-01-06] VITALS: BP 117/62; PULSE 63; TEMP 36.7; O2SAT 91
[2022-01-06] MEDS: acetaminophen 500 mg Tablet 1000 MG PO ×2 (00:48→08:19)
[2022-01-06 04:18] LABS: Hemoglobin 10.8 g/dL (11.7-16.6)
[2022-01-06 06:23] VITALS: RESP 16
[2022-01-06] MEDS: CELEcoxib 200 mg Capsule PO (06:23)
[2022-01-06] MEDS: oxyCODONE 5 mg IR Tab/Cap PO ×2 (06:23→13:16)
--- NOTE | 2022-01-06 08:05 | PM.DCS ---
Discharge Providers Date of Admission: 01/05/22 11:59 Date of Discharge: January 06, 2022 Attending Provider at Admission: Andrew Bal MD Attending Provider at Discharge: Andrew Bal MD Primary Care Provider: Chepe Hope MD Diagnoses at Discharge Discharge Diagnosis (1) Status post right hip replacement: Status: Acute (2) Osteoarthritis of right hip: Status: Resolved Reason for Visit Reason for Visit: osteoarthritis right hip Hospital Course Hospital Course The patient tolerated surgery well. They remained hemodynamically stable. They was begun on aspirin and sequential compression dressing for DVT prophylaxis. The patient was mobilized with therapy beginning the day of surgery and by the first postoperative day independent with the walker. As the pain was adequately controlled and they were fully mobile they were discharged home. Physical Exam Narrative: On the day of discharge the hip incision was clean. The incision was free of drainage. They had no particular swelling about the thigh or distal. No distal neurovascular deficits were noted. Urinary Catheter Management: Coude: Cath Placed During This Visit: yes Reason for Continuing Indwelling Catheter: Required Immobilization for Trauma or Surgery or Anesthesia Urinary Catheter Date of Insertion: 01/05/22 Urinary Catheter Time of Insertion: 10:15 Discharge Data Studies Completed and Pending Completed Studies During Hospitalization Category Date Time Status XR hip RT 1V wo/[place] [id number] Routine Exams 01/05/22 12:05 Completed Radiology Impressions Hip X-Ray 01/05/22 12:05 IMPRESSION: 1. Total hip replacement as described above. Laboratory Results WBC 13.4 10^3/uL (4.0-10.0) H 11/04/21 12:15 RBC 4.63 10^6/uL (4.1-5.3) 11/04/21 12:15 Hgb 10.8 g/dL (11.7-16.6) L 01/06/22 04:13 Hct 42.0 % (42.0-52.0) 11/04/21 12:15 MCV 90.7 fl (80-94) 11/04/21 12:15 MCH 29.2 pg (28.0-34.0) 11/04/21 12:15 MCHC 32.1 g/dL (30.0-36.0) 11/04/21 12:15 RDW 12.4 % (12.1-15.1) 11/04/21 12:15 Plt Count 303 10^3/cmm (130-400) 11/04/21 12:15 MPV 9.7 fL (7.4-10.4) 11/04/21 12:15 Neut % (Auto) 64.4 % 11/04/21 12:15 Lymph % (Auto) 20.9 % 11/04/21 12:15 [place] % (Auto) 9.5 % 11/04/21 12:15 Eos % (Auto) 3.8 % 11/04/21 12:15 Baso % (Auto) 0.8 % 11/04/21 12:15 Neut # (Auto) 8.63 10^3/uL (1.8-7.7) H 11/04/21 12:15 Lymph # (Auto) 2.8 10^3/uL (0.8-4.8) 11/04/21 12:15 [place] # (Auto) 1.3 10^3/uL (0.2-0.9) H 11/04/21 12:15 Eos # (Auto) 0.5 10^3/uL (0.0-0.8) 11/04/21 12:15 Baso # (Auto) 0.1 10^3/uL (0.0-0.1) 11/04/21 12:15 Nucleated RBC % (auto) 0 % 11/04/21 12:15 Nucleated RBCs # 0.0 /100WBC 11/04/21 12:15 Sodium 136 mmol/L (136-145) 11/04/21 12:15 Potassium 4.3 mmol/L (3.5-5.1) 11/04/21 12:15 Chloride 101 mmol/L (98-107) 11/04/21 12:15 Carbon Dioxide 19 mmol/L (22-29) L 11/04/21 12:15 Anion Gap 20.3 (5-19) H 11/04/21 12:15 BUN 23 mg/dL (8-23) 11/04/21 12:15 Creatinine 1.0 mg/dL (0.7-1.2) 11/04/21 12:15 GFR Calculation Not Reportable 11/04/21 12:15 Glucose 102 mg/dL (65-115) 11/04/21 12:15 Calculated Osmolality 286 mOsm/kg (285-295) 11/04/21 12:15 Calcium 9.0 mg/dL (8.5-10.5) 11/04/21 12:15 Vitals Last Vital Signs Temp 98.0 F 01/06/22 00:00 Pulse 63 01/06/22 00:00 Resp 16 01/06/22 06:23 BP 117/62 01/06/22 00:00 Pulse Ox 91 01/06/22 00:00 Discharge Plan Discharge Patient Disposition: Home Condition: Stable Prescriptions: New oxycodone 5 mg Tablet 5 mg PO Q4H PRN (Reason: Moderate Pain) 7 Days Qty: 30 0RF acetaminophen 500 mg Tablet 1,000 mg PO Q8H 14 Days Qty: 84 0RF celecoxib 200 mg Capsule 200 mg PO Q12H 14 Days Qty: 28 0RF Continued albuterol sulfate [ProAir HFA] 90 mcg/actuation HFA aerosol inhaler 2 puff inhalation Q6H PRN (Reason: Shortness Of Breath) 0RF finasteride 5 mg tablet 5 mg PO DAILY 0RF tamsulosin 0.4 mg capsule 0.4 mg PO DAILY 0RF amlodipine 10 mg tablet 10 mg PO DAILY 0RF metoprolol tartrate 25 mg tablet 25 mg PO DAILY 0RF losartan 100 mg tablet 100 mg PO DAILY 0RF multivitamin Tablet 1 tab PO DAILY 0RF atorvastatin 80 mg tablet 80 mg PO DAILY 0RF docusate sodium [Stool Softener] 100 mg capsule 100 mg PO BID 0RF aspirin [Adult Low Dose Aspirin] 81 mg tablet,delayed release (DR/EC) 81 mg PO DAILY 0RF nitroglycerin [Nitrostat] 0.4 mg tablet, sublingual 0.4 mg SUBLINGUAL Q5M PRN (Reason: chest pain) 30 Days Qty: 25 6RF Discontinued hydrocodone-acetaminophen 5-325 mg tablet 1 tab PO Q8H PRN (Reason: Pain, Moderate) 0RF Discharge Orders: Discharge Order (Routine); Ordered 01/06/22 Ordered By: Andrew Bal Referrals: Andrew Bal MD [Physician] - 01/08/22 3:00 pm Discharge Diet: Advance as tolerated Discharge Activity: Limit activity as instructed Patient Instructions: Opioid Safety Activity Restrictions/Additional Instructions: Okay to shower. No soaking incision in tub Apply FirstIce up to 20 min/hr for pain and swelling Take Celebrex twice a day for the next 14 days for pain , discontinue other anti-inflammatories Take Tylenol 500mg (up to 2 tabs) 3 times a day for mild pain Take oxycodone for breakthrough pain. Exercises per physical therapy. May weight-bear as tolerated on total hip arthroplasty IF HAVE ANY PROBLEMS OR QUESTIONS CALL [facility] AT AND ASK TO HAVE DR. CARMEN HERNANDEZ. Discharge Attestations Time Spent in Discharge Care*: other Quality Metrics Clinical Quality Measures [ No reported AMI, CVA or VTE this stay] Coding Level of Care Code Acute [facility] note Diagnoses Status post right hip replacement Z96.641 Osteoarthritis of right hip M16.11
--- NOTE | 2022-01-06 10:21 | PC.OT ---
OT EVALUATION ORDERS RECEIVED. OT SCREEN COMPLETED. PATIENT DOES NOT REQUIRE FURTHER SKILLED OT SERVICES.
[2022-01-06] MEDS: finasteride 5 mg Tablet PO (10:23)
[2022-01-06] MEDS: amlodipine 10 mg Tablet PO (10:24)
[2022-01-06] MEDS: docusate sodium 100 mg Capsule PO (10:24)
[2022-01-06] MEDS: tamsulosin 0.4 mg Capsule PO (10:24)
[2022-01-06] MEDS: aspirin 81 mg EC Tablet PO (10:25)
[2022-01-06] MEDS: atorvastatin 40 mg Tablet 80 MG PO (10:25)
[2022-01-06 10:26] VITALS: BP 131/67
[2022-01-06] MEDS: losartan 50 mg Tablet 100 MG PO (10:26)
[2022-01-06 13:16] VITALS: RESP 18
[2022-01-06 14:00] VITALS: BP 137/86; PULSE 70; RESP 18; O2SAT 98
== END 2022-01-06 13:30 | disposition home or self-care (01) ==
LOC: OBGYN 11:59
PROVIDERS: Anesthesiology; Admitting Provider Orthopaedic Surgery; PCP Family Medicine; Visit Provider Orthopaedic Surgery
PROC: (CPT 27130; principal; 2022-01-05 09:30)
DX: M16.11 Unilateral primary osteoarthritis, right hip (principal); J44.9 Chronic obstructive pulmonary disease, unspecified; I25.10 Atherosclerotic heart disease of native coronary artery without angina pectoris; I10 Essential (primary) hypertension; M19.90 Unspecified osteoarthritis, unspecified site; E78.5 Hyperlipidemia, unspecified; Z82.49 Family history of ischemic heart disease and other diseases of the circulatory system; Z83.3 Family history of diabetes mellitus
CPT/HCPCS: 27130; 36415; 51702; 73501; 80048; 85018; 85025; 97110; 97116; 97161; C1776; G0378; J0690; J1100; J1580; J2370; J2405; J2704; J2710; J3010; J3490; J7030

== ENCOUNTER → 2022-02-03 09:25 | Outpatient (BNVA) | payer MEDICARE, MEDICAID, SELFPAY | PROVIDERS: PCP Family Medicine; Visit Provider Orthopaedic Surgery | DX: Z96.641 Presence of right artificial hip joint (principal) | CPT/HCPCS: 73502 ==

== ENCOUNTER 2022-03-25 09:49 | Oncology outpatient (recurring) (ONCR) | payer MEDICARE, MEDICAID, SELFPAY ==
[2022-03-25 10:35] LABS: Prostate Specific Antigen 0.482 ng/mL (0-4)
[2022-03-25] MEDS: goserelin acetate 10.8 mg Implant SUBCUT (14:15)
[2022-03-25] MEDS: lidocaine 1% INJ 20 mL SUBCUT (14:15)
== END 2022-04-09 23:59 | disposition home or self-care (01) ==
PROVIDERS: PCP Family Medicine; Referring Provider Urology; Visit Provider Nurse Practitioner Family
DX: Z51.11 Encounter for antineoplastic chemotherapy (principal); C61 Malignant neoplasm of prostate
CPT/HCPCS: 84153; 96372; 96402; 99214; J9202

== ENCOUNTER 2022-06-17 10:24 | Oncology outpatient (recurring) (ONCR) | payer MEDICARE, MEDICAID, SELFPAY ==
[2022-06-17 11:03] LABS: Basophils # 0.1 10^3/uL (0.0-0.1); Basophils % 0.8 %; Eosinophils # 0.9 10^3/uL (0.0-0.8); Eosinophils % 6.8 %; Hematocrit 40.6 % (42.0-52.0); Hemoglobin 12.8 g/dL (11.7-16.6); Lymphocytes # 3.4 10^3/uL (0.8-4.8); Mean Corpuscular HGB Conc 31.5 g/dL (30.0-36.0); Mean Corpuscular Hemoglobin 28.9 pg (28.0-34.0); Mean Corpuscular Volume 91.6 fl (80-94); Mean Platelet Volume 9.6 fL (7.4-10.4); Monocytes # 1.5 10^3/uL (0.2-0.9); Monocytes % 10.5 %; Neutrophils # 7.76 10^3/uL (1.8-7.7); Neutrophils % 56.5 %; Nucleated Red Blood Cells % 0 %; Platelet Count 299 10^3/cmm (130-400); Red Blood Count 4.43 10^6/uL (4.1-5.3); Red Cell Distribution Width 12.9 % (12.1-15.1); White Blood Count 13.8 10^3/uL (4.0-10.0)
[2022-06-17 11:32] LABS: Alanine Aminotransferase 19 U/L (0-41); Albumin Level 4.4 g/dL (3.5-5.2); Alkaline Phosphatase 102 U/L (40-130); Aspartate Amino Transferase 28 U/L (0-40); Blood Urea Nitrogen 22 mg/dL (8-23); Calcium 9.1 mg/dL (8.5-10.5); Carbon Dioxide 23 mmol/L (22-29); Chloride 104 mmol/L (98-107); Chol HDL Ratio 2.69 mg/dL (1.0-5.00); Cholesterol 137 mg/dL (0-200); Globulin 3.1 g/dL (1.3-4.6); Glucose 100 mg/dL (65-115); HDL Cholesterol 51 mg/dL (60-100); LDL Cholesterol Calculated 64 mg/dL (50-129); LDL HDL Ratio 1.25 RATIO (0.00-3.22); Osmolality Calculated 287 mOsm/kg (285-295); Sodium 137 mmol/L (136-145); Total Bilirubin 0.3 mg/dL (0.15-1.2); Total Protein 7.5 g/dL (6.6-8.7); Triglycerides 109 mg/dL (0-150)
[2022-06-17 11:47] LABS: Anion Gap 14.4 (5-19); Potassium 4.4 mmol/L (3.5-5.1)
[2022-06-17] MEDS: leuprolide 22.5 mg Kit IM (13:20)
[2022-06-17 13:36] LABS: Prostate Specific Antigen 0.519 ng/mL (0-4)
== END 2022-07-10 23:59 | disposition home or self-care (01) ==
PROVIDERS: Internal Medicine Hematology & Oncology; PCP Family Medicine; Referring Provider Urology; Visit Provider Nurse Practitioner Family
DX: C61 Malignant neoplasm of prostate (principal); R59.0 Localized enlarged lymph nodes; M54.50 Low back pain, unspecified; G89.29 Other chronic pain; G62.9 Polyneuropathy, unspecified; N28.1 Cyst of kidney, acquired; K57.30 Diverticulosis of large intestine without perforation or abscess without bleeding; M16.11 Unilateral primary osteoarthritis, right hip; D72.828 Other elevated white blood cell count; Z79.818 Long term (current) use of other agents affecting estrogen receptors and estrogen levels; I10 Essential (primary) hypertension; E78.49 Other hyperlipidemia; I25.10 Atherosclerotic heart disease of native coronary artery without angina pectoris
CPT/HCPCS: 36415; 80053; 80061; 84153; 85025; 96402; 99214; J9217

== ENCOUNTER → 2022-08-10 09:42 | Outpatient (BNVA) | payer MEDICARE, MEDICAID, SELFPAY | PROVIDERS: PCP Family Medicine; Visit Provider Internal Medicine Cardiovascular Disease | DX: I25.10 Atherosclerotic heart disease of native coronary artery without angina pectoris (principal); I10 Essential (primary) hypertension; E78.49 Other hyperlipidemia; R00.1 Bradycardia, unspecified | CPT/HCPCS: 93005; 99214 ==

== ENCOUNTER 2022-12-03 14:00 | Oncology outpatient (recurring) (ONCR) | payer MEDICARE, MEDICAID, SELFPAY ==
[2022-11-19 11:16] LABS: Basophils # 0.1 10^3/uL (0.0-0.1); Basophils % 0.7 %; Eosinophils # 0.5 10^3/uL (0.0-0.8); Eosinophils % 3.4 %; Hematocrit 43.3 % (42.0-52.0); Hemoglobin 13.5 g/dL (11.7-16.6); Lymphocytes # 3.4 10^3/uL (0.8-4.8); Lymphocytes % 24.4 %; Mean Corpuscular HGB Conc 31.2 g/dL (30.0-36.0); Mean Corpuscular Hemoglobin 28.8 pg (28.0-34.0); Mean Corpuscular Volume 92.5 fl (80-94); Mean Platelet Volume 9.1 fL (7.4-10.4); Monocytes # 1.5 10^3/uL (0.2-0.9); Monocytes % 10.6 %; Neutrophils # 8.38 10^3/uL (1.8-7.7); Neutrophils % 60.5 %; Nucleated Red Blood Cells % 0 %; Platelet Count 306 10^3/cmm (130-400); Red Blood Count 4.68 10^6/uL (4.1-5.3); Red Cell Distribution Width 12.1 % (12.1-15.1); White Blood Count 13.8 10^3/uL (4.0-10.0)
[2022-12-03] MEDS: leuprolide 22.5 mg Kit IM (13:51)
[2022-12-03 13:54] VITALS: BP 147/79; PULSE 78; TEMP 36.2
== END 2022-12-08 23:59 | disposition home or self-care (01) ==
PROVIDERS: PCP Family Medicine; Referring Provider Urology; Visit Provider Internal Medicine Hematology & Oncology
DX: C61 Malignant neoplasm of prostate (principal)
CPT/HCPCS: 36415; 84153; 85025; 96402; 99214; J9217

== ENCOUNTER → 2023-02-23 11:04 | Outpatient (BNVA) | payer MEDICARE, MEDICAID, SELFPAY | PROVIDERS: PCP Family Medicine; Visit Provider Internal Medicine Cardiovascular Disease | DX: I25.10 Atherosclerotic heart disease of native coronary artery without angina pectoris (principal); R00.1 Bradycardia, unspecified; E78.49 Other hyperlipidemia; I10 Essential (primary) hypertension; Z79.82 Long term (current) use of aspirin | CPT/HCPCS: 99214 ==

== ENCOUNTER 2023-02-24 10:37 | Oncology outpatient (recurring) (ONCR) | payer MEDICARE, MEDICAID, SELFPAY ==
[2023-02-24 11:57] LABS: Basophils # 0.1 10^3/uL (0.0-0.1); Basophils % 0.7 %; Eosinophils # 0.5 10^3/uL (0.0-0.8); Eosinophils % 3.9 %; Hematocrit 42.2 % (42.0-52.0); Hemoglobin 13.4 g/dL (11.7-16.6); Lymphocytes # 3.4 10^3/uL (0.8-4.8); Lymphocytes % 27.1 %; Mean Corpuscular HGB Conc 31.8 g/dL (30.0-36.0); Mean Corpuscular Hemoglobin 29.1 pg (28.0-34.0); Mean Corpuscular Volume 91.7 fl (80-94); Mean Platelet Volume 9.9 fL (7.4-10.4); Monocytes # 1.3 10^3/uL (0.2-0.9); Monocytes % 10.4 %; Neutrophils # 7.18 10^3/uL (1.8-7.7); Neutrophils % 57.5 %; Nucleated Red Blood Cells % 0 %; Platelet Count 305 10^3/cmm (130-400); Red Cell Distribution Width 12.1 % (12.1-15.1); White Blood Count 12.5 10^3/uL (4.0-10.0)
[2023-02-24 12:32] LABS: Alanine Aminotransferase 11 U/L (0-41); Albumin Level 4.3 g/dL (3.5-5.2); Alkaline Phosphatase 95 U/L (40-130); Anion Gap 16.9 (5-19); Aspartate Amino Transferase 22 U/L (0-40); Blood Urea Nitrogen 38 mg/dL (8-23); Calcium 9.2 mg/dL (8.5-10.5); Carbon Dioxide 22 mmol/L (22-29); Chloride 104 mmol/L (98-107); Globulin 3.3 g/dL (1.3-4.6); Glucose 111 mg/dL (65-115); Osmolality Calculated 296 mOsm/kg (285-295); Potassium 4.9 mmol/L (3.5-5.1); Sodium 138 mmol/L (136-145); Testosterone Total 2.5 ng/dL (193-740); Total Bilirubin 0.3 mg/dL (0.15-1.2); Total Protein 7.6 g/dL (6.6-8.7)
[2023-02-24] MEDS: leuprolide 22.5 mg Kit IM (14:02)
== END 2023-03-10 23:59 | disposition home or self-care (01) ==
PROVIDERS: Nurse Practitioner; PCP Family Medicine; Referring Provider Urology; Visit Provider Internal Medicine Hematology & Oncology
DX: C61 Malignant neoplasm of prostate (principal); Z79.818 Long term (current) use of other agents affecting estrogen receptors and estrogen levels; R53.83 Other fatigue; Z79.899 Other long term (current) drug therapy; Z92.23 Personal history of estrogen therapy
CPT/HCPCS: 36415; 80053; 84153; 84403; 84443; 85025; 96402; 99214; J9217

== ENCOUNTER 2023-05-31 12:24 | Oncology outpatient (recurring) (ONCR) | payer MEDICARE, MEDICAID, SELFPAY ==
[2023-05-31 12:54] LABS: Basophils # 0.1 10^3/uL (0.0-0.1); Basophils % 0.8 %; Eosinophils # 0.9 10^3/uL (0.0-0.8); Eosinophils % 5.6 %; Hematocrit 41.8 % (42.0-52.0); Hemoglobin 13.4 g/dL (11.7-16.6); Lymphocytes # 3.9 10^3/uL (0.8-4.8); Lymphocytes % 25.4 %; Mean Corpuscular HGB Conc 32.1 g/dL (30.0-36.0); Mean Corpuscular Hemoglobin 28.8 pg (28.0-34.0); Mean Corpuscular Volume 89.9 fl (80-94); Mean Platelet Volume 9.5 fL (7.4-10.4); Monocytes # 1.6 10^3/uL (0.2-0.9); Neutrophils # 8.89 10^3/uL (1.8-7.7); Neutrophils % 57.6 %; Nucleated Red Blood Cells % 0 %; Platelet Count 304 10^3/cmm (130-400); Red Blood Count 4.65 10^6/uL (4.1-5.3); Red Cell Distribution Width 12.4 % (12.1-15.1); White Blood Count 15.4 10^3/uL (4.0-10.0)
[2023-05-31 13:27] LABS: Alanine Aminotransferase 15 U/L (0-41); Albumin Level 4.3 g/dL (3.5-5.2); Alkaline Phosphatase 82 U/L (40-130); Anion Gap 16.7 (5-19); Aspartate Amino Transferase 21 U/L (0-40); Blood Urea Nitrogen 20 mg/dL (8-23); Calcium 9.4 mg/dL (8.5-10.5); Carbon Dioxide 23 mmol/L (22-29); Chloride 105 mmol/L (98-107); Globulin 3.3 g/dL (1.3-4.6); Glucose 114 mg/dL (65-115); Osmolality Calculated 293 mOsm/kg (285-295); Potassium 4.7 mmol/L (3.5-5.1); Sodium 140 mmol/L (136-145); Total Bilirubin 0.3 mg/dL (0.15-1.2); Total Protein 7.6 g/dL (6.6-8.7)
[2023-05-31 13:29] LABS: Testosterone Total < 2.5 ng/dL (193-740)
[2023-05-31] MEDS: leuprolide 22.5 mg Kit IM (15:03)
== END 2023-06-10 23:59 | disposition home or self-care (01) ==
LOC: ONCMED 12:25
PROVIDERS: Nurse Practitioner; PCP Family Medicine; Referring Provider Urology; Visit Provider Internal Medicine Medical Oncology
DX: C61 Malignant neoplasm of prostate (principal); Z79.818 Long term (current) use of other agents affecting estrogen receptors and estrogen levels; D70.9 Neutropenia, unspecified; R59.0 Localized enlarged lymph nodes; M54.50 Low back pain, unspecified; G89.29 Other chronic pain; G62.9 Polyneuropathy, unspecified; N28.1 Cyst of kidney, acquired; K57.30 Diverticulosis of large intestine without perforation or abscess without bleeding; M16.11 Unilateral primary osteoarthritis, right hip; D72.828 Other elevated white blood cell count
CPT/HCPCS: 36415; 80053; 84153; 84403; 85025; 96402; 99214; J9217

== ENCOUNTER 2023-06-16 09:17 | Outpatient (CLI) | payer MEDICARE, MEDICAID, SELFPAY ==
--- NOTE | 2023-06-16 09:21 | NM_ITS ---
WS: [id number] NUCLEAR MEDICINE BONE SCAN Radiopharmaceutical: 25.6 Tc-99m MDP mCi IV Injection site: Antecubital Postinjection imaging delay: 1 hr CLINICAL INFORMATION: Follow up COMPARISON: 12/19/2021 FINDINGS: Bone lesions: There are no osseous lesions suspicious for metastatic disease. Soft tissue contours: Normal. Kidneys: Normal. Other findings: Degenerative radiotracer uptake both AC joints and sternoclavicular joints. Previous ly described RIGHT femoral head uptake not seen today. Previously described RIGHT rib fracture activi ty not seen today. IMPRESSION: No evidence of osseous metastatic disease.
[2023-06-16] MEDS: iohexol 350 mg/mL 500 mL Btl (per mL) IV (10:58)
[2023-06-16] MEDS: iohexol 350 mg/mL 500 mL Btl (per mL) PO (10:59)
--- NOTE | 2023-06-16 16:30 | CT_ITS ---
WS: [id number] CT CHEST, ABDOMEN, AND PELVIS TECHNIQUE: Contrast-enhanced CT of the chest, abdomen, and pelvis with coronal and sagittal reformatt ed images. CLINICAL INFORMATION: Follow up COMPARISON: None. DLP: 1036.[address] scans at [facility] use at least one of these dose optimization techniques: automated e xposure control; mA and/or kV adjustment per patient size (includes targeted exams where dose is matc hed to clinical indication); or iterative reconstruction. CT CHEST: 7 mm noncalcified nodule RIGHT lower lobe medially adjacent to the spine appears unchanged since 2019 . Smaller adjacent nodule or vessel. No other suspicious pulmonary parenchymal opacities. Mild chronic emphysematous changes. No acute pulmonary infiltrates. No focal pneumonia or pleural flu id. Slight bibasilar atelectasis. Normal caliber thoracic aorta. Aortic calcification. Coronary calci fication. No axillary lymphadenopathy. CT ABDOMEN AND PELVIS: Nodular lobulated enhancing prostate progressed compared to previous with susp icious component along the LEFT inferior prostate near the seminal vesicle measuring 3.7 x 2.1 x 3.2 cm suspicious for progressed disease. Recommend correlation PSA. A few prominent central mesenteric lymph nodes best seen on the coronal imaging. Otherwise no lymphad enopathy in the abdomen or pelvis. No inguinal lymphadenopathy. Images in the pelvis are degraded due to RIGHT GLEN. Mild diffuse fatty infiltration of the liver. Large hepatic cysts unchanged since October 23, 2019. Largest hepatic cyst measures 7.0 x 6.8 cm RIGHT hepatic lobe unchanged. Normal portal vein and sple imani vein. Normal spleen. Mild fatty atrophy of the pancreas. Lobulated bilobed small to moderate esophageal hiatal hernia with diverticulum measuring 2.5 cm. This is progressed compared to previous. Atelectasis in the lungs bases. Adrenal glands are normal. Flor l renal parenchymal enhancement. Numerous bilateral renal cysts largest in the mid aspect RIGHT kidney is progressed today measuring 7 .3 x 6.1 cm. No hydronephrosis. Normal caliber abdominal aorta. Sigmoid diverticulosis. No evidence of acute diverticulitis Bilateral pars defects L5-S1 with grade 1 anterolisthesis. Disc space narrowing worse L4-L5 and L5-S1. Advanced degenerative arthritis RIGHT h ip with subchondral cystic change and [id number]-edad articulation. Small RIGHT dorsal bladder diverticu lum unchanged. IMPRESSION: 1. Nodular lobulated enhancing prostate appears significantly progressed compared to previous. Focal area of nodular enhancement LEFT inferior lateral margin measuring 3.7 x 2.1 x 3.2 cm suspicious for recurrent/progressive disease. Recommend correlation PSA and urology consultation. 2. No lymphadenopathy in the chest. 3. A few prominent lymph nodes in the central mesentery measuring up to 12 mm nonspecific best seen on the coronal imaging. 4. No periaortic or pelvic lymphadenopathy. 5. 7 mm lobulated nodule RIGHT lower lobe medially appears unchanged since 2018. Adjacent smaller no dule or vessel. 6. Lobulated esophageal hiatal hernia progressed compared to previous with thickening of the GE junc tion. Hiatal hernia diverticulum measuring 2.4 cm. Recommend further evaluation with endoscopy. 7. Progressed simple appearing RIGHT renal cyst measuring 7.7 x 6.3 cm. 8. No other significant changes.
== END 2023-06-16 09:18 | disposition home or self-care (01) ==
LOC: RAD 09:18
PROVIDERS: PCP Family Medicine; Visit Provider Internal Medicine Medical Oncology
DX: C61 Malignant neoplasm of prostate (principal); N40.2 Nodular prostate without lower urinary tract symptoms; R91.1 Solitary pulmonary nodule; K44.9 Diaphragmatic hernia without obstruction or gangrene; R59.0 Localized enlarged lymph nodes
CPT/HCPCS: 71260; 74177; 78306; A9561; Q9967

== ENCOUNTER → 2023-06-24 14:37 | Outpatient (BNVA) | payer MEDICARE, MEDICAID, SELFPAY | PROVIDERS: PCP Family Medicine; Referring Provider Nurse Practitioner Family; Visit Provider Surgery | DX: R93.89 Abnormal findings on diagnostic imaging of other specified body structures (principal) | CPT/HCPCS: 99204 ==

== ENCOUNTER 2023-06-28 12:58 | Oncology outpatient (recurring) (ONCR) | payer MEDICARE, MEDICAID, SELFPAY | END 2023-07-10 23:59 | disposition home or self-care (01) | PROVIDERS: PCP Family Medicine; Referring Provider Urology; Visit Provider Internal Medicine Medical Oncology | DX: C61 Malignant neoplasm of prostate (principal); Z79.818 Long term (current) use of other agents affecting estrogen receptors and estrogen levels; D70.9 Neutropenia, unspecified; R59.0 Localized enlarged lymph nodes; M54.50 Low back pain, unspecified; G89.29 Other chronic pain; G62.9 Polyneuropathy, unspecified; N28.1 Cyst of kidney, acquired; K57.30 Diverticulosis of large intestine without perforation or abscess without bleeding; M16.11 Unilateral primary osteoarthritis, right hip; D72.828 Other elevated white blood cell count | CPT/HCPCS: 99214 ==

== ENCOUNTER 2023-08-06 10:13 | Day surgery (SDC) | payer MEDICARE, MEDICAID, SELFPAY ==
[2023-08-06 10:28] VITALS: BMI 29.0
[2023-08-06 10:30] VITALS: BP 157/79; PULSE 73; RESP 18; TEMP 36.1; O2SAT 96
--- NOTE | 2023-08-06 10:32 | P.HP_ITS ---
Same Day Surgery H&P Indication for Procedure/HPI DATE OF PROCEDURE: August 06, 2023 CHIEF COMPLAINT/INDICATIONFOR SURGICAL PROCEDURE: abnormal thickening of the cardia PREOP DIAGNOSIS: abnormal thickening of the cardia. PLANNED PROCEDURE: Operation Date: 08/06/23 11:30 Proposed Procedures p EGD 00807,R93.89(Not Applicable) - Tommy Villa MD Medications/Allergies* Home Medications Medication Instructions Recorded Confirmed Type aspirin 81 mg tablet,delayed 81 mg PO DAILY 11/22/19 08/04/23 History release (Adult Low Dose Aspirin) docusate sodium 100 mg capsule 100 mg PO BID 11/22/19 08/04/23 History (Stool Softener) multivitamin 1 tab PO DAILY 11/22/19 08/04/23 History tamsulosin 0.4 mg capsule 0.4 mg PO DAILY 11/22/19 08/04/23 History albuterol sulfate 90 mcg/actuation 2 puff inhalation Q4H PRN 08/04/23 08/04/23 History aerosol inhaler Shortness Of Breath amlodipine 10 mg tablet 10 mg PO DAILY 08/04/23 08/04/23 History atorvastatin 80 mg tablet 80 mg PO DAILY 08/04/23 08/04/23 History finasteride 5 mg tablet 5 mg PO DAILY 08/04/23 08/04/23 History losartan 100 mg tablet 100 mg PO DAILY 08/04/23 08/04/23 History metoprolol tartrate 25 mg tablet 25 mg PO DAILY 08/04/23 08/04/23 History Allergies/Adverse Reactions Allergy/AdvReac Type Severity Reaction Status Date / Time No Known Allergies Allergy Verified 07/13/23 14:20 Pertinent History/Comorbid Conditions* Medical History (Updated 02/24/23 @ 13:28 by Skye Morton NP) ASHD (arteriosclerotic heart disease) BPH (benign prostatic hyperplasia) Bradycardia HTN (hypertension) Hyperlipidemia PVD (peripheral vascular disease) Surgical History (Updated 08/10/22 @ 10:57 by Amena Yeung MD) History of right hip replacement 01/05/2022 at [place], [place] S/P lens implant S/P PTCA (percutaneous transluminal coronary angioplasty) Family History (Updated 08/10/22 @ 10:25 by Samantha Davis RN) Father, Age 70 CHF Mother, Age 68 DM Diabetes Mother CAD (coronary artery disease) Brother Father Brother Brother CHF (congestive heart failure) Father Heart disease Brother Brother Brother Denies family history of Clotting disorder Dementia Chronic kidney disease (CKD) Suicide Anesthesia complication Bleeding disorder Lung disease Cancer Stroke Social History Smoking and tobacco/nicotine status: never used tobacco/nicotine Alcohol intake: never Substance/Drug Use: never Pertinent Exam Findings alert and oriented x 3 Recommendations Surgery/Procedure today Coding Level of Care Code Acute Code for Chg Fwd Diagnoses
[2023-08-06] MEDS: sodium chloride 0.9% 1,000 ML 30 ML IV (10:37)
--- NOTE | 2023-08-06 11:18 | P.ANESASSM_ITS ---
Pre-Anesthetic Assessment Height/Weight: Height 1.68 m Weight 81.647 kg Temp Pulse Resp BP Pulse Ox O2 Del Method 97.0 F L 73 18 157/79 96 Room Air 08/06/23 10:30 08/06/23 10:30 08/06/23 10:30 08/06/23 10:30 08/06/23 10:30 08/06/23 10:30 Preop Diagnosis: Abnormal CT of Chest Operation Date: 08/06/23 11:30 Proposed Procedures p EGD 96777,R93.89(Not Applicable) - Tommy Villa MD Familial anesthetic complications: none Last intake: Intake Last Liquid Date 08/05/23 Last Liquid Time 18:00 Last Solid Date 08/05/23 Last Solid Time 18:00 Social No alcohol and No tobacco Exam alert, oriented x 3, clear to auscultation bilaterally and regular rate & rhythm CT- 1.Nodular lobulated enhancing prostate appears significantly progressed compared to previous. Focal area of nodular enhancement LEFT inferior lateral margin measuring 3.7 x 2.1 x 3.2 cm suspicious for recurrent/progressive disease. Recommend correlation PSA and urology consultation. 2.? No lymphadenopathy in the chest. 3.? A few prominent lymph nodes in the central mesentery measuring up to 12 mm nonspecific best seen on the coronal imaging. 4.? No periaortic or pelvic lymphadenopathy. 5.? 7 mm lobulated nodule RIGHT lower lobe medially appears unchanged since 2018. Adjacent smaller nodule or vessel. 6.? Lobulated esophageal hiatal hernia progressed compared to previous with thickening of the GE junction. Hiatal hernia diverticulum measuring 2.4 cm. Recommend further evaluation with endoscopy. 7.? Progressed simple appearing RIGHT renal cyst measuring 7.7 x 6.3 cm. 8.? No other significant changes. Airway Submandibular: within normal limits Cervical ROM: within normal limits Mallampati: Class II Dentition: false Pulmonary None reported CV/HEM Stable Angina, Coronary Artery Disease, Hypertension and Myocardial Infarction Heart stents [address] Yeung, recent visit. None reported Hepatic None reported GI Gastroesophageal Reflux Disease and Hiatal Hernia Metabolic Hyperlipidemia [facility] [place] None reported Neuropsych None reported Anesthetic Plan ASA status: 3 Anesthesia: MAC Other: prostate cancer scheduled to begin radiation soon Medications/Allergies Home Medications Medication Instructions Recorded Confirmed Last Taken Type aspirin 81 mg tablet,delayed 81 mg PO DAILY 11/22/19 08/06/23 08/04/23 History release (Adult Low Dose Aspirin) docusate sodium 100 mg capsule 100 mg PO BID 11/22/19 08/06/23 08/04/23 History (Stool Softener) multivitamin 1 tab PO DAILY 11/22/19 08/06/23 08/04/23 History tamsulosin 0.4 mg capsule 0.4 mg PO DAILY 11/22/19 08/06/23 08/04/23 History lorazepam 1 mg tablet 0.5 - 1 mg PO Q6H PRN Severe 06/17/22 08/06/23 08/04/23 Rx Nausea #30 tabs hydrocodone 10 mg-acetaminophen 1 tab PO Q8H PRN pain 1 month #90 07/08/23 08/06/23 08/04/23 Rx 325 mg tablet tabs nitroglycerin 0.4 mg sublingual 0.4 mg sublingual Q5M PRN chest 07/19/23 08/06/23 Unknown Rx tablet (Nitrostat) pain 30 days #25 tabs albuterol sulfate 90 mcg/actuation 2 puff inhalation Q4H PRN 08/04/23 08/06/23 Unknown History aerosol inhaler Shortness Of Breath amlodipine 10 mg tablet 10 mg PO DAILY 08/04/23 08/06/23 08/04/23 History atorvastatin 80 mg tablet 80 mg PO DAILY 08/04/23 08/06/23 08/04/23 History finasteride 5 mg tablet 5 mg PO DAILY 08/04/23 08/06/23 08/04/23 History losartan 100 mg tablet 100 mg PO DAILY 08/04/23 08/06/23 08/04/23 History metoprolol tartrate 25 mg tablet 25 mg PO DAILY 08/04/23 08/06/23 08/04/23 History Allergies Allergy/AdvReac Type Severity Reaction Status Date / Time No Known Allergies Allergy Verified 08/06/23 10:33 Current Medications Generic Name Dose Route Start Last Admin Trade Name Freq PRN Reason Stop Dose Admin Sodium Chloride 1,000 mls @ 30 mls/hr 08/06/23 10:30 08/06/23 10:37 Sodium Chloride 0.9% IV 30 mls/hr .Q24H ZAC Administration PFSH Anesthesia Medical History ASHD (arteriosclerotic heart disease) BPH (benign prostatic hyperplasia) Bradycardia HTN (hypertension) Hyperlipidemia PVD (peripheral vascular disease) Surgical History History of right hip replacement 01/05/2022 at [place], [place] S/P lens implant S/P PTCA (percutaneous transluminal coronary angioplasty) Family History Mother , Age 68 DM Diabetes Brother Heart disease CAD (coronary artery disease) Father , Age 70 CHF CHF (congestive heart failure) CAD (coronary artery disease) Brother CAD (coronary artery disease) Heart disease Brother CAD (coronary artery disease) Heart disease Denies family history of Clotting disorder Dementia Chronic kidney disease (CKD) Suicide Anesthesia complication Bleeding disorder Lung disease Cancer Stroke Social History Smoking and tobacco/nicotine status: never used tobacco/nicotine Alcohol intake: never Substance/Drug Use: never Data Anesthesia Cardiac Studies: No Data to Display
[2023-08-06 13:04] VITALS: BP 86/56; PULSE 67; RESP 18; TEMP 36.2; O2SAT 95
[2023-08-06 13:19] VITALS: BP 124/75; PULSE 68; RESP 18; O2SAT 97
[2023-08-06 13:32] VITALS: BP 157/72; PULSE 63; RESP 18; O2SAT 97
== END 2023-08-06 13:45 | disposition home or self-care (01) ==
PROVIDERS: PCP Family Medicine; Visit Provider Surgery
PROC: 0DJ08ZZ Inspection of Upper Intestinal Tract, Via Natural or Artificial Opening Endoscopic (ICD-10-PCS; CPT 43235; principal; 2023-08-06 11:30)
DX: R93.89 Abnormal findings on diagnostic imaging of other specified body structures (principal); K22.70 Barrett's esophagus without dysplasia; L53.8 Other specified erythematous conditions; K29.50 Unspecified chronic gastritis without bleeding; K21.00 Gastro-esophageal reflux disease with esophagitis, without bleeding; K44.9 Diaphragmatic hernia without obstruction or gangrene; I25.110 Atherosclerotic heart disease of native coronary artery with unstable angina pectoris; I10 Essential (primary) hypertension; I25.2 Old myocardial infarction; Z95.5 Presence of coronary angioplasty implant and graft; E78.5 Hyperlipidemia, unspecified; C61 Malignant neoplasm of prostate; N40.0 Benign prostatic hyperplasia without lower urinary tract symptoms
CPT/HCPCS: 43239; 88305; 88342; J2704; J7030

== ENCOUNTER 2023-08-10 15:07 | Oncology outpatient (recurring) (ONCR) | payer MEDICARE, MEDICAID, SELFPAY ==
[2023-07-13 13:09] VITALS: BP 122/71; PULSE 75; TEMP 36.2; O2SAT 97
[2023-07-13 13:18] LABS: Basophils # 0.1 10^3/uL (0.0-0.1); Basophils % 0.7 %; Eosinophils # 0.6 10^3/uL (0.0-0.8); Eosinophils % 4.3 %; Hematocrit 39.6 % (37-53); Lymphocytes # 3.1 10^3/uL (0.8-4.8); Lymphocytes % 23.5 %; Mean Corpuscular HGB Conc 32.6 g/dL (30-55); Mean Corpuscular Hemoglobin 29.5 pg (27-33); Mean Corpuscular Volume 90.4 fl (82-101); Mean Platelet Volume 9.7 fL (7.4-10.4); Monocytes # 1.9 10^3/uL (0.2-0.9); Monocytes % 14.3 %; Neutrophils # 7.34 10^3/uL (1.8-7.7); Neutrophils % 56.5 %; Nucleated Red Blood Cells % 0 %; Platelet Count 289 10^3/cmm (157-399); Red Blood Count 4.38 10^6/uL (3.85-5.65); Red Cell Distribution Width 12.4 % (12.1-15.1)
[2023-07-13 13:48] LABS: Alanine Aminotransferase 13 U/L (0-41); Albumin Level 4.3 g/dL (3.5-5.2); Alkaline Phosphatase 87 U/L (40-130); Anion Gap 15.7 (5-19); Aspartate Amino Transferase 30 U/L (0-40); Blood Urea Nitrogen 31 mg/dL (8-23); Calcium 9.3 mg/dL (8.5-10.5); Carbon Dioxide 24 mmol/L (22-29); Chloride 102 mmol/L (98-107); Globulin 3.1 g/dL (1.3-4.6); Glucose 120 mg/dL (65-115); Osmolality Calculated 292 mOsm/kg (285-295); Potassium 4.7 mmol/L (3.5-5.1); Sodium 137 mmol/L (136-145); Testosterone Total 2.5 ng/dL (193-740); Total Bilirubin 0.2 mg/dL (0.15-1.2); Total Protein 7.4 g/dL (6.6-8.7)
--- NOTE | 2023-08-02 11:04 | N.ONRAD NP_ITS ---
Radiation Oncology New Patient Visit Patient: Gabino Howell MR#: [id number] : 1935> Age: 88> Sex: Male> Dictated by: Moi Nassar Date of Service: 08/02/2023 Referring Physician(s) : Dr. Keven Henao, Dr. Dallas Millan, Dr. 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 Radiotherapy to date: Summary > No prior radiation therapy. Chief Complaint / History of Present Illness: The patient is an 88-year-old male who was noted to have a PSA of 8 in May 2017. The decision was made at that time for observation. Repeat PSA September 2017 revealed a PSA of 38. TRUS P/biopsy September 23, 2017 revealed a Isabella 3+4 adenocarcinoma involving [address] of the abdomen pelvis January 04, 2018 revealed left external iliac lymph node measuring 2.4 x 2.9 x 3.7 cm, left retroperitoneal lymph node just inferior to the left renal artery measuring 1.5 cm and lymph nodes posterior to the descending thoracic aorta measuring 1.8 x 0.9 x 2.76 cm as well. Several retrocrural lymph nodes measuring up to 1 cm were noted. No lytic or blastic bony destruction was noted at that time. ADT was initiated by Dr. Henao on December 2017. PSA at that time was 61.8. Zoladex/Casodex was tolerated well and the PSA decreased to 0.5. Repeat CT of the abdomen pelvis April 05, 2018 noted resolution/shrinkage of the lymph nodes. Bone scan 03/28 was also negative. Additional follow-up CT scans of the abdomen pelvis 10/25/2019 and bone scan also 10/25/[address] abdomen pelvis 12/19/2021 and bone scan 12/19/2021 were negative. Patient was noted to have a rising PSA. PSMA PET at [facility] in [place] revealed uptake in the prostate only with slight enlargement. No bone or lymph node uptake was described in the report. Patient is present today with his of 58 years. He remains physically active and has no complaints of pain. He has occasional hot flashes and chills related to his Lupron. He continues on Lupron 22.5 mg every 3 months. Current Medications: Aspir-81, atorvastatin Calcium, finasteride, hYDROcodone-Acetaminophen, losartan Potassium, metoprolol Tartrate, norvasc, proAir HFA, stool Softener, tamsulosin HCl, zoladex. Allergies: No Known Allergies Medical History: Arteriosclerotic heart disease, Covid virus in 11/2021, hyperlipidemia, hypertension, peripheral vascular disease. No history of collagen vascular disease. No previous radiation therapy. Surgical History: Cardiac stent x2, flu vac in 06/2020 and shingles vac #1 in 06/2020. Family History: Father is at age 70 having experienced congestive heart failure. Mother is at age 68 having experienced type II diabetes, and myocardial infarction. Brother is at age 80 having experienced myocardial infarctio. Sister is at age 66 having experienced Stomach Cancer. Social History: Last screened on 12/24/2021 - Never smoked. Last screened on 12/24/2021 - Never drank. Current Complaints / Review of Systems: . Vital Signs: Performed on 08/02/2023 8:36 AM BMI - 29.44 kg/m2 (high), Height - 66 in, Weight - 182.4 lbs, Temperature - 96.8 f, Pulse - 71 /min, Respiration - 18 /min, O2 Sat - 98 %, Pain - 0, Fatigue - 0 and BP - 141/ 75 mm(hg)(high/). Physical Exam: Alert and oriented male appearing his stated age. HEENT: PERRL, EOMI. Cranial nerves II through XII grossly intact. Tongue and uvula midline and mobile. Speech intact. Patient is edentulous. He has male pattern baldness. Lymph nodes: No cervical, supraclavicular or axial adenopathy is noted. Chest: Lungs clear to auscultation bilaterally. Cardiovascular exam reveals regular rhythm. Abdomen: Soft nontender. Bowel sounds are present and normoactive. Genital/rectal: Patient declined examination. Extremities: No upper or lower extremity edema noted. Patient ambulatory without assistance. Motor symmetrical to the upper and lower extremities. Performance Status: ECOG 1 Pathology: Primary, c61 - malignant neoplasm of prostate, Diagnosed 01/31/2018 (active) stage iv, t1c, n1, m0, g7, p>=20. Lab: Imaging: See HPI Impression: 88-year-old male with Isabella 3+4 adenocarcinoma of the prostate involving 5/12 cores. He has responded well to androgen deprivation therapy with Lupron and has a rising PSA. PSMA scan 07/01/2023 showed uptake in the prostate only with enlargement of the prostate. Patient is a candidate for radiation therapy to the prostate only in the hope of maintaining local control. We discussed the option of continuing on hormonal therapy versus radiation therapy plus hormonal therapy. The potential risks, benefits and side effects of external beam radiation therapy were discussed with the patient and his . He indicates his understanding and willingness to proceed with treatment. Plan: With the patient's consent treatment planning CT scan will be performed. Plan is to deliver hypofractionated radiation therapy of 70 Garner in 28 fractions. In addition I am recommending concurrent radiation therapy to the pelvic lymph nodes. Signed by: 08/02/2023 11:03:08 AM <<Signature on File>> Time spent with patient: 60 minutes was spent with the patient in direct contact. CPT Code: CPT Code:
--- NOTE | 2023-08-10 15:46 | ONCRAD TMN_ITS ---
Radiation Oncology Weekly Treatment Management Patient: Dante Nevarez MR#: [id number] : 1935> Attending Physician: Dr. Erin Ang Date of Service: 08/10/2023 Fractions: of 28 completed Referring Physician(s) : Dr. 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 ID: [id number], Energy: 6X, Dose/Fx (cGy): 250, #Fx: , Dose Correction (cGy): 0, Total Dose (cGy): 250, Start Date: 08/10/2023, Elapsed Days: 0 Reason for visit: The patient is being seen today as part of their regularly scheduled weekly on treatment visits to assess for acute toxicities from radiotherapy. Review of Systems: Patient denies any problems with bowel or bladder. Vital Signs: Performed on 08/10/2023 3:21 PM BMI - 29.44 kg/m2 (high), Height - 66 in, Weight - 182.4 lbs, Temperature - 96.5 f, Pulse - 69 /min, Respiration - 18 /min, O2 Sat - 96 %, Pain - 0, Fatigue - 0 and BP - 137/ 75 mm(hg). Physical Exam: Patient is no apparent distress. Alert and oriented x3. Gait speech within normal limits. Imaging: Radiation therapy imaging related to accurate target localization (i.e. KV, MV and CBCT) was reviewed. Appropriate changes, if any, were made to ensure treatment accuracy. Plan: Patient has received his first treatment. His imaging was perfect. He had no additional questions or concerns. At this point we will continue with his treatments as planned. Signed by: Dr. Erin Ang 08/10/2023 3:44:59 PM
== END 2023-08-10 23:59 | disposition home or self-care (01) ==
PROVIDERS: Internal Medicine Medical Oncology; PCP Family Medicine; Referring Provider Urology; Visit Provider Radiology Radiation Oncology
DX: C61 Malignant neoplasm of prostate (principal); Z79.818 Long term (current) use of other agents affecting estrogen receptors and estrogen levels; D70.9 Neutropenia, unspecified; R59.0 Localized enlarged lymph nodes; M54.50 Low back pain, unspecified; G89.29 Other chronic pain; G62.9 Polyneuropathy, unspecified; N28.1 Cyst of kidney, acquired; K57.30 Diverticulosis of large intestine without perforation or abscess without bleeding; M16.11 Unilateral primary osteoarthritis, right hip; D72.828 Other elevated white blood cell count
CPT/HCPCS: 36415; 77300; 77301; 77334; 77338; 77385; 80053; 84153; 84403; 85025; 99024; 99205; 99215

== ENCOUNTER 2023-08-25 15:00 | Oncology outpatient (recurring) (ONCR) | payer MEDICARE, MEDICAID, SELFPAY ==
--- NOTE | 2023-08-17 15:46 | ONCRAD TMN_ITS ---
Radiation Oncology Weekly Treatment Management Patient: Gabino Howell MR#: [id number] : 1935 Attending Physician: Dr. Erin Ang Date of Service: 08/17/2023 Fractions: 6 out of 28 Chief complaint: Patient denies any bowel or bladder changes Referring Physician(s) : Dr. 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 ID: [id number], Energy: 6X, Dose/Fx (cGy): 250, #Fx: , Dose Correction (cGy): 0, Total Dose (cGy): 1,500, Start Date: 08/10/2023, Elapsed Days: 7 Reason for visit: The patient is being seen today as part of their regularly scheduled weekly on treatment visits to assess for acute toxicities from radiotherapy. Review of Systems: None Vital Signs: Performed on 08/17/2023 3:22 PM BMI - 29.182 kg/m2 (high), Height - 66 in, Weight - 180.8 lbs, Temperature - 96.5 f, Pulse - 67 /min, Respiration - 16 /min, O2 Sat - 98 %, Pain - 0, Fatigue - 0 and BP - 143/ 72 mm(hg)(high/). Physical Exam: Skin is warm and dry. Respiratory rate is regular nonlabored. Abdomen is nonprotuberant Imaging: Radiation therapy imaging related to accurate target localization (i.e. KV, MV and CBCT) was reviewed. Appropriate changes, if any, were made to ensure treatment accuracy. Plan: Patient is doing well. He has had no changes in bowel or bladder habits thus far. We will continue with his treatments as planned Signed by: Dr. Erin Ang 08/17/2023 3:44:55 PM
[2023-08-23 11:27] VITALS: BP 112/74; PULSE 61; TEMP 35.8; O2SAT 98
[2023-08-23 11:39] LABS: Basophils # 0.1 10^3/uL (0.0-0.1); Basophils % 0.6 %; Eosinophils # 0.6 10^3/uL (0.0-0.8); Eosinophils % 7.2 %; Hematocrit 39.9 % (37-53); Lymphocytes # 1.4 10^3/uL (0.8-4.8); Lymphocytes % 17.7 %; Mean Corpuscular HGB Conc 32.3 g/dL (30-55); Mean Corpuscular Hemoglobin 29.9 pg (27-33); Mean Corpuscular Volume 92.4 fl (82-101); Mean Platelet Volume 9.7 fL (7.4-10.4); Monocytes # 0.9 10^3/uL (0.2-0.9); Neutrophils # 4.83 10^3/uL (1.8-7.7); Neutrophils % 61.9 %; Nucleated Red Blood Cells % 0 %; Platelet Count 206 10^3/cmm (157-399); Red Blood Count 4.32 10^6/uL (3.85-5.65); Red Cell Distribution Width 12.4 % (12.1-15.1); White Blood Count 7.81 10^3/uL (3.29-11.43)
[2023-08-23 12:09] LABS: Alanine Aminotransferase 13 U/L (0-41); Albumin Level 4.2 g/dL (3.5-5.2); Alkaline Phosphatase 88 U/L (40-130); Anion Gap 13.9 (5-19); Aspartate Amino Transferase 19 U/L (0-40); Blood Urea Nitrogen 25 mg/dL (8-23); Calcium 9.2 mg/dL (8.5-10.5); Carbon Dioxide 25 mmol/L (22-29); Chloride 104 mmol/L (98-107); Globulin 3.2 g/dL (1.3-4.6); Glucose 110 mg/dL (65-115); Osmolality Calculated 291 mOsm/kg (285-295); Potassium 4.9 mmol/L (3.5-5.1); Sodium 138 mmol/L (136-145); Testosterone Total 2.5 ng/dL (193-740); Total Bilirubin 0.4 mg/dL (0.15-1.2); Total Protein 7.4 g/dL (6.6-8.7)
[2023-08-25] MEDS: leuprolide 22.5 mg Kit IM (15:03)
--- NOTE | 2023-08-25 16:09 | ONCRAD TMN_ITS ---
Radiation Oncology Weekly Treatment Management Patient: Gabino Howell MR#: [id number] : 1935 Attending Physician: Darin Hilton Date of Service: 08/25/2023 Referring Physician(s) : Dr. Keven Henao Diagnosis: C61 - Malignant neoplasm of prostate, Diagnosed 01/31/2018 (Active) Stage IV, T1c, N1, M0, G7, P>=20 Radiotherapy to date: Course: Prostate 2022, Treatment Site: [id number], Ref. ID: [id number], Energy: 6X, Dose/Fx (cGy): 250, #Fx: , Dose Correction (cGy): 0, Total Dose (cGy): 2,750, Start Date: 08/10/2023, Elapsed Days: 15 Reason for visit: The patient is being seen today as part of their regularly scheduled weekly on treatment visits to assess for acute toxicities from radiotherapy. Review of Systems: Stable urinary habits with q 1 to2 hr nocturia. Good flow and no pain. No desire for medication treatment. Bowels ok. Vital Signs: Performed on 08/25/2023 3:12 PM BMI - 29.085 kg/m2 (high), Height - 66 in, Weight - 180.2 lbs, Temperature - 97.7 f, Pulse - 74 /min, Respiration - 18 /min, O2 Sat - 95 % (low), Pain - 0, Fatigue - 0 and BP - 118/ 70 mm(hg). Physical Exam: Imaging: Radiation therapy imaging related to accurate target localization (i.e. KV, MV and CBCT) was reviewed. Appropriate changes, if any, were made to ensure treatment accuracy. Plan: Good tolerance of treatment. Continue treatment as planned. Signed by: Darin Hilton 08/25/2023 4:07:47 PM
== END 2023-08-25 23:59 | disposition home or self-care (01) ==
PROVIDERS: Internal Medicine Medical Oncology; PCP Family Medicine; Referring Provider Urology; Visit Provider Internal Medicine Medical Oncology
DX: Z51.0 Encounter for antineoplastic radiation therapy (principal); C61 Malignant neoplasm of prostate; R53.83 Other fatigue; Z79.899 Other long term (current) drug therapy; C77.4 Secondary and unspecified malignant neoplasm of inguinal and lower limb lymph nodes; Z51.11 Encounter for antineoplastic chemotherapy
CPT/HCPCS: 36415; 77014; 77336; 77385; 77417; 80053; 84153; 84403; 85025; 96402; 99024; 99214; J9217

== ENCOUNTER → 2023-09-08 10:35 | Outpatient (BNVA) | payer MEDICARE, MEDICAID, SELFPAY | PROVIDERS: PCP Family Medicine; Visit Provider Nurse Practitioner Family | DX: I25.10 Atherosclerotic heart disease of native coronary artery without angina pectoris (principal); I10 Essential (primary) hypertension | CPT/HCPCS: 99214 ==

== ENCOUNTER 2023-09-09 14:31 | Oncology outpatient (recurring) (ONCR) | payer MEDICARE, MEDICAID, SELFPAY ==
--- NOTE | 2023-08-31 16:22 | ONCRAD TMN_ITS ---
Radiation Oncology Weekly Treatment Management Patient: Dante Lloyd MR#: [id number] : 1935 Attending Physician: Chu Pleitez Date of Service: 08/31/2023 Referring Physician(s) : Dr. Keven Henao Diagnosis: C61 - Malignant neoplasm of prostate, Diagnosed 01/31/2018 (Active) Stage IV, T1c, N1, M0, G7, P>=20 Radiotherapy to date: Course: Prostate 2022, Treatment Site: [id number], Ref. ID: [id number], Energy: 6X, Dose/Fx (cGy): 250#Fx: , Dose Correction (cGy): 0, Total Dose (cGy): 3,750, Start Date: 08/10/2023, Elapsed Days: Reason for visit: The patient is being seen today as part of his regularly scheduled weekly on treatment visits to assess for acute toxicities from radiotherapy. Review of Systems: Doing well. He has a good appetite and denies fatigue. He has minimal bladder symptoms. He does get up every 1-2 hours at night but states that is not a problem for him. He has a good stream and feels that he empties well. No dysuria, pyuria, or hematuria. No bowel complaints. Vital Signs: Performed on 08/31/2023 3:12 PM BMI - 29.376 kg/m2 (high), Height - 66 in, Weight - 182 lbs, Temperature - 96 f, Pulse - 63 /min, Respiration - 18 /min, O2 Sat - 98 %, Pain - 0, Fatigue - 2 and BP - 137/ 74 mm(hg). Physical Exam: Alert, oriented, no acute distress. Imaging: Radiation therapy imaging related to accurate target localization (i.e. KV, MV and CBCT) was reviewed. Appropriate changes, if any, were made to ensure treatment accuracy. Plan: Continue treatment per plan. Signed by: Chu Pleitez 08/31/2023 4:21:39 PM
--- NOTE | 2023-09-07 16:01 | ONCRAD TMN_ITS ---
Radiation Oncology Weekly Treatment Management Patient: Gabino Howell> MR#: [id number] : 1935> Attending Physician: Moi Nassar Date of Service: 09/07/2023 Referring Physician(s) : Dr. Keven Henao Diagnosis: C61 - Malignant neoplasm of prostate, Diagnosed 01/31/2018 (Active) Stage IV, T1c, N1, M0, G7, P>=20 Radiotherapy to date: Course: Prostate 2022, Treatment Site: [id number], Ref. ID: [id number], Energy: 6X, Dose/Fx (cGy): 250, #Fx: , Dose Correction (cGy): 0, Total Dose (cGy): 4,250, Start Date: 08/10/2023, Elapsed Days: Reason for visit: The patient is being seen today as part of their regularly scheduled weekly on treatment visits to assess for acute toxicities from radiotherapy. Review of Systems: Patient continues with nocturia every 1-2 hours. He denies any difficulty returning to sleep. He has no complaints of dysuria, hematuria, or pyuria. He denies diarrhea or constipation and has no complaints of hemorrhoids. Vital Signs: Performed on 09/07/2023 3:07 PM BMI - 29.343 kg/m2 (high), Height - 66 in, Weight - 181.8 lbs, Temperature - 98.0 f, Pulse - 62 /min, Respiration - 16 /min, O2 Sat - 98 %, Pain - 0, Fatigue - 0 and BP - 154/ 79 mm(hg)(high/). Physical Exam: Alert and oriented male appearing his stated age. Patient's is present with him. Imaging: Radiation therapy imaging related to accurate target localization (i.e. KV, MV and CBCT) was reviewed. Appropriate changes, if any, were made to ensure treatment accuracy. Plan: Continue prescribed radiation therapy. Signed by: Moi Nassar 09/07/2023 4:00:04 PM
== END 2023-09-09 23:59 | disposition home or self-care (01) ==
PROVIDERS: PCP Family Medicine; Referring Provider Urology; Visit Provider Radiology Radiation Oncology
DX: Z51.0 Encounter for antineoplastic radiation therapy (principal); C61 Malignant neoplasm of prostate; Z79.818 Long term (current) use of other agents affecting estrogen receptors and estrogen levels; D70.9 Neutropenia, unspecified; R59.0 Localized enlarged lymph nodes; M54.50 Low back pain, unspecified; G89.29 Other chronic pain; G62.9 Polyneuropathy, unspecified; N28.1 Cyst of kidney, acquired; K57.30 Diverticulosis of large intestine without perforation or abscess without bleeding; M16.11 Unilateral primary osteoarthritis, right hip; D72.828 Other elevated white blood cell count; R97.21 Rising PSA following treatment for malignant neoplasm of prostate
CPT/HCPCS: 77336; 77385; 77417; 99024; 99213

== ENCOUNTER 2023-09-21 15:03 | Oncology outpatient (recurring) (ONCR) | payer MEDICARE, MEDICAID, SELFPAY ==
--- NOTE | 2023-09-14 15:31 | ONCRAD TMN_ITS ---
Radiation Oncology Weekly Treatment Management Patient: Geri Howell MR#: [id number] : 1935> Attending Physician: Dr. Erin Ang Date of Service: 09/14/2023 Fractions: 23 out of 28 Referring Physician(s) : Dr. Keven Henao Diagnosis: C61 - Malignant neoplasm of prostate, Diagnosed 01/31/2018 (Active) Stage IV, T1c, N1, M0, G7, P>=20 Radiotherapy to date: Course: Prostate 2022, Treatment Site: [id number], Ref. ID: [id number], Energy: 6X, Dose/Fx (cGy): 250, #Fx: , Dose Correction (cGy): 0, Total Dose (cGy): 5,750, Start Date: 08/10/2023, Elapsed Days: 35 Reason for visit: The patient is being seen today as part of their regularly scheduled weekly on treatment visits to assess for acute toxicities from radiotherapy. Review of Systems: He denies any complaints with bowel or bladder habits Vital Signs: Physical Exam: He has no changes on his skin Imaging: Radiation therapy imaging related to accurate target localization (i.e. KV, MV and CBCT) was reviewed. Appropriate changes, if any, were made to ensure treatment accuracy. Plan: Patient is doing well. We will continue with his treatments as planned. Signed by: Dr. Erin Ang 09/14/2023 3:30:55 PM
--- NOTE | 2023-09-21 15:33 | ONCRAD TMN_ITS ---
Radiation Oncology Weekly Treatment Management/ Treatment Summary Patient: Dante Nevarez MR#: [id number] : 1935> Attending Physician: Dr. Erin Ang Date of Service: 09/21/2023 Referring Physician(s) : Dr. Keven Henao Diagnosis: C61 - Malignant neoplasm of prostate, Diagnosed 01/31/2018 (Active) Stage IV, T1c, N1, M0, G7, P>=20 Radiotherapy to date: Course: Prostate 2022, Treatment Site: [id number], Ref. ID: [id number], Energy: 6X, Dose/Fx (cGy): 250, #Fx: 28 / 28, Dose Correction (cGy): 0, Total Dose (cGy): 7,000, Start Date: 08/10/2023, End Date: 09/21/2023, Elapsed Days: 42 Reason for visit: The patient is being seen today as part of their regularly scheduled weekly on treatment visits to assess for acute toxicities from radiotherapy. Review of Systems: Vital Signs: Performed on 09/21/2023 3:07 PM BMI - 29.214 kg/m2 (high), Height - 66 in, Weight - 181 lbs, Temperature - 97.1 f, Pulse - 76 /min, Respiration - 18 /min, O2 Sat - 99 %, Pain - 0, Fatigue - 0 and BP - 142/ 63 mm(hg)(high/low). Physical Exam: No abnormalities noted, skin without changes Imaging: Radiation therapy imaging related to accurate target localization (i.e. KV, MV and CBCT) was reviewed. Appropriate changes, if any, were made to ensure treatment accuracy. Plan: Patient has completed his radiation. He will be back in a month with a PSA Signed by: Dr. Erin Ang 09/21/2023 3:31:33 PM
== END 2023-10-10 23:59 | disposition home or self-care (01) ==
PROVIDERS: PCP Family Medicine; Referring Provider Urology; Visit Provider Radiology Radiation Oncology
DX: Z51.0 Encounter for antineoplastic radiation therapy (principal); C61 Malignant neoplasm of prostate; Z79.818 Long term (current) use of other agents affecting estrogen receptors and estrogen levels; D70.9 Neutropenia, unspecified; R59.0 Localized enlarged lymph nodes; M54.50 Low back pain, unspecified; G89.29 Other chronic pain; G62.9 Polyneuropathy, unspecified; N28.1 Cyst of kidney, acquired; K57.30 Diverticulosis of large intestine without perforation or abscess without bleeding; M16.11 Unilateral primary osteoarthritis, right hip; D72.828 Other elevated white blood cell count; R97.21 Rising PSA following treatment for malignant neoplasm of prostate; K21.00 Gastro-esophageal reflux disease with esophagitis, without bleeding
CPT/HCPCS: 77014; 77336; 77385; 99024

== ENCOUNTER 2023-11-17 10:17 | Oncology outpatient (recurring) (ONCR) | payer MEDICARE, MEDICAID, SELFPAY ==
[2023-11-17 10:34] LABS: Basophils # 0.1 10^3/uL (0.0-0.1); Basophils % 0.6 %; Eosinophils # 1.5 10^3/uL (0.0-0.8); Eosinophils % 11.8 %; Hematocrit 38.9 % (37-53); Lymphocytes # 2.3 10^3/uL (0.8-4.8); Lymphocytes % 18.3 %; Mean Corpuscular HGB Conc 32.4 g/dL (30-55); Mean Corpuscular Hemoglobin 30.2 pg (27-33); Mean Corpuscular Volume 93.3 fl (82-101); Mean Platelet Volume 9.1 fL (7.4-10.4); Monocytes # 1.4 10^3/uL (0.2-0.9); Monocytes % 11.4 %; Neutrophils # 7.04 10^3/uL (1.8-7.7); Neutrophils % 57.1 %; Nucleated Red Blood Cells % 0 %; Platelet Count 246 10^3/cmm (157-399); Red Blood Count 4.17 10^6/uL (3.85-5.65); Red Cell Distribution Width 12.5 % (12.1-15.1); White Blood Count 12.32 10^3/uL (3.29-11.43)
[2023-11-17 10:46] LABS: Chloride 101 mmol/L (98-107); Potassium 4.5 mmol/L (3.5-5.1)
[2023-11-17 11:14] LABS: Alanine Aminotransferase 17 U/L (0-41); Albumin Level 4.1 g/dL (3.5-5.2); Alkaline Phosphatase 95 U/L (40-130); Anion Gap 15.5 (5-19); Aspartate Amino Transferase 24 U/L (0-40); Blood Urea Nitrogen 23 mg/dL (8-23); Calcium 8.8 mg/dL (8.5-10.5); Carbon Dioxide 23 mmol/L (22-29); Globulin 3.3 g/dL (1.3-4.6); Glucose 107 mg/dL (65-115); Osmolality Calculated 286 mOsm/kg (285-295); Prostate Specific Antigen 0.319 ng/mL (0-4); Sodium 136 mmol/L (136-145); Total Bilirubin 0.3 mg/dL (0.15-1.2); Total Protein 7.4 g/dL (6.6-8.7)
[2023-11-17 11:15] LABS: Testosterone Total < 2.5 ng/dL (193-740)
[2023-11-17 13:20] VITALS: BP 157/89; PULSE 56; RESP 18; TEMP 36.1; O2SAT 95
[2023-11-17] MEDS: leuprolide 22.5 mg Kit IM (13:33)
== END 2023-12-09 23:59 | disposition home or self-care (01) ==
PROVIDERS: PCP Family Medicine; Referring Provider Urology; Visit Provider Internal Medicine Medical Oncology
DX: C61 Malignant neoplasm of prostate; Z79.818 Long term (current) use of other agents affecting estrogen receptors and estrogen levels; Z92.3 Personal history of irradiation; M25.511 Pain in right shoulder; G89.29 Other chronic pain; Z79.891 Long term (current) use of opiate analgesic
CPT/HCPCS: 36415; 80053; 84153; 84403; 85025; 96402; 99214; J9217

== ENCOUNTER 2024-02-09 11:59 | Oncology outpatient (recurring) (ONCR) | payer MEDICARE, MEDICAID, SELFPAY ==
[2024-02-09 12:21] LABS: Basophils # 0.1 10^3/uL (0.0-0.1); Basophils % 0.5 %; Eosinophils # 0.7 10^3/uL (0.0-0.8); Hematocrit 38.3 % (37-53); Lymphocytes # 1.9 10^3/uL (0.8-4.8); Lymphocytes % 20.2 %; Mean Corpuscular HGB Conc 31.9 g/dL (30-55); Mean Corpuscular Hemoglobin 29.3 pg (27-33); Mean Corpuscular Volume 92.1 fl (82-101); Mean Platelet Volume 9.4 fL (7.4-10.4); Monocytes # 1.5 10^3/uL (0.2-0.9); Monocytes % 16.5 %; Neutrophils # 5.08 10^3/uL (1.8-7.7); Neutrophils % 55.1 %; Nucleated Red Blood Cells % 0 %; Platelet Count 215 10^3/cmm (157-399); Red Blood Count 4.16 10^6/uL (3.85-5.65); Red Cell Distribution Width 12.3 % (12.1-15.1); White Blood Count 9.22 10^3/uL (3.29-11.43)
[2024-02-09 12:52] LABS: Alanine Aminotransferase 16 U/L (0-41); Alkaline Phosphatase 96 U/L (40-130); Anion Gap 14.9 (5-19); Aspartate Amino Transferase 24 U/L (0-40); Blood Urea Nitrogen 22 mg/dL (8-23); Calcium 8.8 mg/dL (8.5-10.5); Carbon Dioxide 25 mmol/L (22-29); Chloride 107 mmol/L (98-107); Globulin 3.3 g/dL (1.3-4.6); Glucose 125 mg/dL (65-115); Osmolality Calculated 299 mOsm/kg (285-295); Potassium 4.9 mmol/L (3.5-5.1); Prostate Specific Antigen 0.079 ng/mL (0-4); Sodium 142 mmol/L (136-145); Testosterone Total 2.5 ng/dL (193-740); Total Bilirubin 0.3 mg/dL (0.15-1.2); Total Protein 7.3 g/dL (6.6-8.7)
[2024-02-09] MEDS: leuprolide 22.5 mg Kit IM (14:43)
== END 2024-03-10 23:59 | disposition home or self-care (01) ==
PROVIDERS: Nurse Practitioner Family; PCP Family Medicine; Referring Provider Urology; Visit Provider Internal Medicine Medical Oncology
DX: C61 Malignant neoplasm of prostate (principal); Z79.818 Long term (current) use of other agents affecting estrogen receptors and estrogen levels; Z92.3 Personal history of irradiation; Z51.11 Encounter for antineoplastic chemotherapy
CPT/HCPCS: 36415; 80053; 84153; 84403; 85025; 96402; 99213; J9217

== ENCOUNTER → 2024-03-07 10:38 | Outpatient (BNVA) | payer MEDICARE, MEDICAID, SELFPAY | PROVIDERS: PCP Family Medicine; Visit Provider Internal Medicine Cardiovascular Disease | DX: R07.9 Chest pain, unspecified (principal); R00.1 Bradycardia, unspecified; I25.118 Atherosclerotic heart disease of native coronary artery with other forms of angina pectoris; I10 Essential (primary) hypertension; E78.49 Other hyperlipidemia | CPT/HCPCS: 93005; 99214 ==

== ENCOUNTER 2024-05-10 11:54 | Oncology outpatient (recurring) (ONCR) | payer MEDICARE, MEDICAID, SELFPAY ==
[2024-05-10 12:11] LABS: Basophils # 0.1 10^3/uL (0.0-0.1); Basophils % 0.7 %; Eosinophils # 1.1 10^3/uL (0.0-0.8); Eosinophils % 10.5 %; Hematocrit 38.2 % (37-53); Lymphocytes # 2.6 10^3/uL (0.8-4.8); Lymphocytes % 25.1 %; Mean Corpuscular HGB Conc 32.2 g/dL (30-55); Mean Corpuscular Hemoglobin 29.2 pg (27-33); Mean Corpuscular Volume 90.7 fl (82-101); Mean Platelet Volume 9.2 fL (7.4-10.4); Monocytes # 1.3 10^3/uL (0.2-0.9); Monocytes % 12.7 %; Neutrophils % 50.4 %; Nucleated Red Blood Cells % 0 %; Platelet Count 242 10^3/cmm (157-399); Red Blood Count 4.21 10^6/uL (3.85-5.65); Red Cell Distribution Width 12.9 % (12.1-15.1); White Blood Count 10.49 10^3/uL (3.29-11.43)
[2024-05-10 12:37] LABS: Alanine Aminotransferase 14 U/L (0-41); Albumin Level 4.1 g/dL (3.5-5.2); Alkaline Phosphatase 89 U/L (40-130); Anion Gap 16.7 (5-19); Aspartate Amino Transferase 20 U/L (0-40); Blood Urea Nitrogen 27 mg/dL (8-23); Calcium 8.9 mg/dL (8.5-10.5); Carbon Dioxide 20 mmol/L (22-29); Chloride 107 mmol/L (98-107); Globulin 3.3 g/dL (1.3-4.6); Glucose 99 mg/dL (65-115); Osmolality Calculated 293 mOsm/kg (285-295); Potassium 4.7 mmol/L (3.5-5.1); Prostate Specific Antigen 0.032 ng/mL (0-4); Sodium 139 mmol/L (136-145); Testosterone Total 2.5 ng/dL (193-740); Total Bilirubin 0.2 mg/dL (0.15-1.2); Total Protein 7.4 g/dL (6.6-8.7)
[2024-05-10] MEDS: leuprolide 22.5 mg Kit IM (13:50)
== END 2024-05-10 23:59 | disposition home or self-care (01) ==
LOC: ONCMED 11:54
PROVIDERS: Nurse Practitioner Family; PCP Family Medicine; Referring Provider Urology; Visit Provider Internal Medicine Medical Oncology
DX: Z51.11 Encounter for antineoplastic chemotherapy (principal); C61 Malignant neoplasm of prostate; Z79.818 Long term (current) use of other agents affecting estrogen receptors and estrogen levels; Z92.3 Personal history of irradiation
CPT/HCPCS: 36415; 80053; 84153; 84403; 85025; 96402; 99213; J9217

== ENCOUNTER 2024-08-02 12:32 | Oncology outpatient (recurring) (ONCR) | payer MEDICARE, MEDICAID, SELFPAY ==
[2024-08-02 12:59] LABS: Basophils # 0.1 10^3/uL (0.0-0.1); Basophils % 0.7 %; Eosinophils # 0.6 10^3/uL (0.0-0.8); Eosinophils % 6.2 %; Hematocrit 36.9 % (37-53); Lymphocytes # 2.2 10^3/uL (0.8-4.8); Lymphocytes % 21.4 %; Mean Corpuscular Hemoglobin 28.9 pg (27-33); Mean Corpuscular Volume 90.2 fl (82-101); Mean Platelet Volume 9.1 fL (7.4-10.4); Monocytes # 1.3 10^3/uL (0.2-0.9); Monocytes % 12.8 %; Neutrophils # 5.99 10^3/uL (1.8-7.7); Neutrophils % 58.1 %; Nucleated Red Blood Cells % 0 %; Platelet Count 223 10^3/cmm (157-399); Red Blood Count 4.09 10^6/uL (3.85-5.65); Red Cell Distribution Width 12.8 % (12.1-15.1); White Blood Count 10.31 10^3/uL (3.29-11.43)
[2024-08-02 13:30] LABS: Alanine Aminotransferase 15 U/L (0-41); Albumin Level 4.2 g/dL (3.5-5.2); Alkaline Phosphatase 82 U/L (40-130); Anion Gap 15.2 (5-19); Aspartate Amino Transferase 24 U/L (0-40); Blood Urea Nitrogen 27 mg/dL (8-23); Calcium 8.5 mg/dL (8.5-10.5); Carbon Dioxide 21 mmol/L (22-29); Chloride 105 mmol/L (98-107); Globulin 3.1 g/dL (1.3-4.6); Glucose 96 mg/dL (65-115); Osmolality Calculated 289 mOsm/kg (285-295); Potassium 4.2 mmol/L (3.5-5.1); Prostate Specific Antigen 0.026 ng/mL (0-4); Sodium 137 mmol/L (136-145); Testosterone Total 2.5 ng/dL (193-740); Total Bilirubin 0.4 mg/dL (0.15-1.2); Total Protein 7.3 g/dL (6.6-8.7)
[2024-08-02] MEDS: leuprolide 22.5 mg Kit IM (15:16)
[2024-08-02 15:19] VITALS: BP 120/75; PULSE 78; RESP 18; TEMP 36.6; O2SAT 98
== END 2024-08-10 23:59 | disposition home or self-care (01) ==
PROVIDERS: Nurse Practitioner Family; PCP Family Medicine; Referring Provider Urology; Visit Provider Internal Medicine Medical Oncology
DX: Z51.11 Encounter for antineoplastic chemotherapy (principal); C61 Malignant neoplasm of prostate; R53.83 Other fatigue; Z79.818 Long term (current) use of other agents affecting estrogen receptors and estrogen levels; Z92.3 Personal history of irradiation
CPT/HCPCS: 36415; 80053; 84153; 84403; 85025; 96402; 99213; J9217

== ENCOUNTER 2024-11-02 11:42 | Oncology outpatient (recurring) (ONCR) | payer MEDICARE, MEDICAID, SELFPAY ==
[2024-11-02 12:53] LABS: Basophils # 0.1 10^3/uL (0.0-0.1); Basophils % 0.6 %; Eosinophils # 0.7 10^3/uL (0.0-0.8); Hematocrit 38.7 % (37-53); Lymphocytes # 2.3 10^3/uL (0.8-4.8); Lymphocytes % 21.4 %; Mean Corpuscular HGB Conc 31.8 g/dL (30-55); Mean Corpuscular Volume 91.3 fl (82-101); Mean Platelet Volume 9.5 fL (7.4-10.4); Monocytes # 1.4 10^3/uL (0.2-0.9); Neutrophils % 58.4 %; Nucleated Red Blood Cells % 0 %; Platelet Count 236 10^3/cmm (157-399); Red Blood Count 4.24 10^6/uL (3.85-5.65); Red Cell Distribution Width 12.4 % (12.1-15.1); White Blood Count 10.96 10^3/uL (3.29-11.43)
[2024-11-02 13:23] LABS: Alanine Aminotransferase 15 U/L (0-41); Albumin Level 4.1 g/dL (3.5-5.2); Alkaline Phosphatase 90 U/L (40-130); Anion Gap 16.1 (5-19); Aspartate Amino Transferase 23 U/L (0-40); Blood Urea Nitrogen 32 mg/dL (8-23); Carbon Dioxide 22 mmol/L (22-29); Chloride 103 mmol/L (98-107); Globulin 3.1 g/dL (1.3-4.6); Glucose 109 mg/dL (65-115); Osmolality Calculated 289 mOsm/kg (285-295); Potassium 5.1 mmol/L (3.5-5.1); Prostate Specific Antigen 0.044 ng/mL (0-4); Sodium 136 mmol/L (136-145); Testosterone Total < 2.5 ng/dL (193-740); Total Bilirubin 0.2 mg/dL (0.15-1.2); Total Protein 7.2 g/dL (6.6-8.7)
[2024-11-02] MEDS: leuprolide 22.5 mg Kit IM (16:09)
== END 2024-11-10 23:59 | disposition home or self-care (01) ==
PROVIDERS: Nurse Practitioner Family; PCP Family Medicine; Referring Provider Urology; Visit Provider Internal Medicine Medical Oncology
DX: Z51.11 Encounter for antineoplastic chemotherapy (principal); C61 Malignant neoplasm of prostate; Z79.899 Other long term (current) drug therapy; Z92.3 Personal history of irradiation
CPT/HCPCS: 36415; 80053; 84153; 84403; 85025; 96402; 99213; J9217

== ENCOUNTER 2025-02-01 09:19 | Oncology outpatient (recurring) (ONCR) | payer MEDICARE, MEDICAID, SELFPAY ==
[2025-02-01 09:44] LABS: Basophils # 0.1 10^3/uL (0.0-0.1); Basophils % 0.8 %; Eosinophils # 0.6 10^3/uL (0.0-0.8); Eosinophils % 5.3 %; Hematocrit 38.6 % (37-53); Lymphocytes # 2.2 10^3/uL (0.8-4.8); Lymphocytes % 21.5 %; Mean Corpuscular HGB Conc 31.6 g/dL (30-55); Mean Corpuscular Hemoglobin 29.7 pg (27-33); Mean Corpuscular Volume 93.9 fl (82-101); Mean Platelet Volume 9.4 fL (7.4-10.4); Monocytes # 1.4 10^3/uL (0.2-0.9); Monocytes % 13.3 %; Neutrophils # 6.06 10^3/uL (1.8-7.7); Neutrophils % 58.5 %; Nucleated Red Blood Cells % 0 %; Platelet Count 221 10^3/cmm (157-399); Red Blood Count 4.11 10^6/uL (3.85-5.65); Red Cell Distribution Width 12.3 % (12.1-15.1); White Blood Count 10.36 10^3/uL (3.29-11.43)
[2025-02-01 10:20] LABS: Alanine Aminotransferase 12 U/L (0-41); Alkaline Phosphatase 85 U/L (40-130); Anion Gap 13.9 (5-19); Aspartate Amino Transferase 22 U/L (0-40); Blood Urea Nitrogen 30 mg/dL (8-23); Calcium 8.8 mg/dL (8.5-10.5); Carbon Dioxide 23 mmol/L (22-29); Chloride 106 mmol/L (98-107); Globulin 3.4 g/dL (1.3-4.6); Glucose 96 mg/dL (65-115); Osmolality Calculated 292 mOsm/kg (285-295); Potassium 4.9 mmol/L (3.5-5.1); Prostate Specific Antigen 0.166 ng/mL (0-4); Sodium 138 mmol/L (136-145); Total Bilirubin 0.4 mg/dL (0.15-1.2); Total Protein 7.4 g/dL (6.6-8.7)
[2025-02-01 10:23] LABS: Testosterone Total < 2.5 ng/dL (193-740)
[2025-02-01] MEDS: leuprolide 22.5 mg Kit IM (12:55)
== END 2025-02-07 23:59 | disposition home or self-care (01) ==
PROVIDERS: Internal Medicine; PCP Family Medicine; Referring Provider Urology; Visit Provider Internal Medicine Medical Oncology
DX: Z51.11 Encounter for antineoplastic chemotherapy (principal); C61 Malignant neoplasm of prostate; Z79.818 Long term (current) use of other agents affecting estrogen receptors and estrogen levels; Z92.3 Personal history of irradiation
CPT/HCPCS: 36415; 80053; 84153; 84403; 85025; 96402; 99213; J9217

== ENCOUNTER 2025-04-26 11:09 | Oncology outpatient (recurring) (ONCR) | payer MEDICARE, MEDICAID, SELFPAY ==
[2025-04-26 12:28] LABS: Hematocrit 39.0 % (37-53); Hemoglobin 12.60 g/dL (11.27-16.99); Mean Corpuscular HGB Conc 32.3 g/dL (30-55); Mean Corpuscular Hemoglobin 29.7 pg (27-33); Mean Corpuscular Volume 92.0 fl (82-101); Nucleated Red Blood Cells % 0 %; Platelet Count 224 10^3/cmm (157-399); Red Blood Count 4.24 10^6/uL (3.85-5.65); White Blood Count 10.43 10^3/uL (3.29-11.43)
[2025-04-26 13:02] LABS: Alanine Aminotransferase 15 U/L (0-41); Albumin Level 4.0 g/dL (3.5-5.2); Alkaline Phosphatase 99 U/L (40-130); Anion Gap 15.7 (5-19); Aspartate Amino Transferase 24 U/L (0-40); Blood Urea Nitrogen 18 mg/dL (8-23); Calcium 9.1 mg/dL (8.5-10.5); Carbon Dioxide 23 mmol/L (22-29); Chloride 106 mmol/L (98-107); Creatinine Clr Calc Pharmacy 41.5523; Globulin 3.4 g/dL (1.3-4.6); Glucose 99 mg/dL (65-115); Osmolality Calculated 292 mOsm/kg (285-295); Potassium 4.7 mmol/L (3.5-5.1); Prostate Specific Antigen 0.525 ng/mL (0-4); Sodium 140 mmol/L (136-145); Total Protein 7.4 g/dL (6.6-8.7)
[2025-04-26] MEDS: leuprolide 22.5 mg Kit IM (13:26)
== END 2025-05-10 23:59 | disposition home or self-care (01) ==
PROVIDERS: Internal Medicine; PCP Family Medicine; Referring Provider Urology; Visit Provider Internal Medicine Medical Oncology
DX: Z51.11 Encounter for antineoplastic chemotherapy (principal); C61 Malignant neoplasm of prostate; R97.20 Elevated prostate specific antigen [PSA]; Z79.899 Other long term (current) drug therapy; Z92.3 Personal history of irradiation; Z79.818 Long term (current) use of other agents affecting estrogen receptors and estrogen levels
CPT/HCPCS: 36415; 80053; 84153; 84403; 85025; 96402; 99214; J9217